=== PATIENT | male | born 1955 | race Caucasian/White ===

== ENCOUNTER → 2017-06-10 12:41 | Outpatient (CLI) | payer BC, SELFPAY | PROVIDERS: PCP Family Medicine; Visit Provider Family Medicine | DX: R06.00 Dyspnea, unspecified (principal) | CPT/HCPCS: 94060; 94640 ==

== ENCOUNTER 2017-07-18 12:22 | Observation (INO) | payer BC, SELFPAY ==
[2017-07-18] VITALS (10 sets, daily range): BP systolic 98–162; BP diastolic 55–90; PULSE 44–60; RESP 18–20; TEMP 36.4–37; O2SAT 95–100; BMI 33.0; BMI 31.7
--- NOTE | 2017-07-18 12:33 | XR_ITS ---
XR chest portable HISTORY: Chest pain ITS.REASON: cp ORDERING PHYSICIAN: Nick Brian MD PATIENT AGE: 62 years COMPARISON: None available FINDINGS: The cardiomediastinal silhouette and pulmonary vascularity are within normal limits. There are increased markings in the right lower lobe consistent with atelectasis or infiltrate. No acute bony anomalies. IMPRESSION: Right lower lobe atelectasis or infiltrate
--- NOTE | 2017-07-18 12:34 | HMH.EDGENADL ---
ED Disposition Clinical Impression: Chest pain Qualifiers: Chest pain type: unspecified Qualified Code(s): R07.9 - Chest pain, unspecified Disposition: Admitted As Inpatient Condition on Discharge: Good Referrals: Kvng Mae MD [Primary Care Provider] - - Critical Care Critical Care Time: No Attestation: On , the high probability of a clinically significant, sudden or life threatening deterioration of the following system(s) required my full and direct attention, intervention and personal management. The time I documented below is in addition to time spent performing reported procedures but includes the following listed in this critical care notation. Medical Decision Making - Medical Records Medical records reviewed: Yes: I reviewed the patient's medical records. MR Comment: 1304 [facility] that patient is here, labs pending. they do plan on doing angiogram, plan admission sp workup. 1504 [address] vilchis accepts in admission Vital Signs: 07/18/17 12:23 07/18/17 13:23 07/18/17 13:56 Temperature 97.6 F Temperature Source Oral Pulse Rate [Right Radial] 47 L 46 L 48 L Respiratory Rate 20 Blood Pressure [Right Arm] 137/62 119/61 124/65 Blood Pressure Mean [Right Arm] 87 80 84 Blood Pressure Source [Right Arm] Automatic Cuff Automatic Cuff Automatic Cuff Blood Pressure Position [Right Arm] Sitting Sitting 02 Sat by Pulse Oximetry 96 95 95 Oxygen Delivery Method Room Air 07/18/17 14:30 Temperature Temperature Source Pulse Rate [Right Radial] 45 L Respiratory Rate Blood Pressure [Right Arm] 118/62 Blood Pressure Mean [Right Arm] 80 Blood Pressure Source [Right Arm] Automatic Cuff Blood Pressure Position [Right Arm] 02 Sat by Pulse Oximetry 97 Oxygen Delivery Method - Lab Data Lab Results 07/18/17 12:30: WBC 5.8, RBC 5.09, Hgb 15.6, Hct 45.4, MCV 89.3, MCH 30.7, MCHC 34.4, RDW 13.5, Plt Count 168, MPV 8.5, Neut % (Auto) 56.2, Lymph % (Auto) 33.0, [place] % (Auto) 7.3, Eos % (Auto) 3.1, Baso % (Auto) 0.5, Neut # (Auto) 3.3, Lymph # (Auto) 1.9, [place] # (Auto) 0.4, Eos # (Auto) 0.2, Baso # (Auto) 0.0 07/18/17 12:30: Sodium 137, Potassium 4.0, Chloride 104, Carbon Dioxide 28, Anion Gap 9.0, BUN 13, Creatinine 0.96, Estimated Creat Clear 114, Estimated GFR 80, Est GFR ( Amer) 96, Glucose 97, Calcium 8.5, Total Bilirubin 0.6, AST 16, ALT 40, Alkaline Phosphatase 83, Troponin I < 0.02, Total Protein 6.9, Albumin 3.8, Globulin 3.1, Albumin/Globulin Ratio 1.2, Lipase 93 07/18/17 12:30: B-Natriuretic Peptide 35 Result diagrams: 07/18/17 12:30 07/18/17 12:30 Orders (Tests/Meds): ED MEDICATIONS Generic Name Dose Route Start Last Admin Trade Name Freq PRN Reason Stop Dose Admin Enoxaparin Sodium 100 mg 07/18/17 14:27 07/18/17 14:41 Lovenox 100mg/Ml Syringe SQ 07/18/17 14:28 100 mg ONCE ONE Administration Fentanyl Citrate 50 mcg 07/18/17 14:27 Fentanyl 100mcg/2ml Vial IV 07/19/17 14:27 Q3MINP PRN Moderate to Severe Pain Fentanyl Citrate 25 mcg 07/18/17 14:27 Fentanyl 100mcg/2ml Vial IV 07/19/17 14:27 Q3MINP PRN Moderate to Severe Pain Flumazenil 0.2 mg 07/18/17 14:27 Romazicon 0.1mg/Ml 5ml Vial IV 07/18/17 23:00 NEEDED PRN Sedation Midazolam HCl 1 mg 07/18/17 14:27 Midazolam 2mg/2ml Vial IV 07/19/17 14:27 Q3MINP PRN Sedation Midazolam HCl 1 mg 07/18/17 14:27 Midazolam 1mg/Ml 5ml Vial IV 07/19/17 14:27 Q3MINP PRN Sedation Naloxone HCl 0.4 mg 07/18/17 14:27 Narcan 0.4mg/Ml Vial IV 07/19/17 14:27 Q5MINP PRN Decreased respirations Discontinued Medications Generic Name Dose Route Start Last Admin Trade Name Freq PRN Reason Stop Dose Admin Aspirin 243 mg 07/18/17 12:34 07/18/17 12:35 Aspirin 81mg Chewable Tablet PO 07/18/17 12:35 243 mg ONCE ONE Administration - ECG Data Tracing #1 ER EKG read by myself s
--- NOTE | 2017-07-18 12:38 | ED_ITS ---
ED Disposition Clinical Impression: Chest pain Qualifiers: Chest pain type: unspecified Qualified Code(s): R07.9 - Chest pain, unspecified Disposition: Admitted As Inpatient Condition on Discharge: Good Referrals: Kvng Mae MD [Primary Care Provider] - - Critical Care Critical Care Time: No Attestation: On , the high probability of a clinically significant, sudden or life threatening deterioration of the following system(s) required my full and direct attention, intervention and personal management. The time I documented below is in addition to time spent performing reported procedures but includes the following listed in this critical care notation. Medical Decision Making - Medical Records Medical records reviewed: Yes: I reviewed the patient's medical records. MR Comment: 1304 dw Cardiology that patient is here, labs pending. they do plan on doing angiogram, plan admission sp workup. 1504 [address] [facility] accepts in admission Vital Signs: 07/18/17 12:23 07/18/17 13:23 07/18/17 13:56 Temperature 97.6 F Temperature Source Oral Pulse Rate [Right Radial] 47 L 46 L 48 L Respiratory Rate 20 Blood Pressure [Right Arm] 137/62 119/61 124/65 Blood Pressure Mean [Right Arm] 87 80 84 Blood Pressure Source [Right Arm] Automatic Cuff Automatic Cuff Automatic Cuff Blood Pressure Position [Right Arm] Sitting Sitting 02 Sat by Pulse Oximetry 96 95 95 Oxygen Delivery Method Room Air 07/18/17 14:30 Temperature Temperature Source Pulse Rate [Right Radial] 45 L Respiratory Rate Blood Pressure [Right Arm] 118/62 Blood Pressure Mean [Right Arm] 80 Blood Pressure Source [Right Arm] Automatic Cuff Blood Pressure Position [Right Arm] 02 Sat by Pulse Oximetry 97 Oxygen Delivery Method - Lab Data Lab Results 07/18/17 12:30: WBC 5.8, RBC 5.09, Hgb 15.6, Hct 45.4, MCV 89.3, MCH 30.7, MCHC 34.4, RDW 13.5, Plt Count 168, MPV 8.5, Neut % (Auto) 56.2, Lymph % (Auto) 33.0 , [place] % (Auto) 7.3, Eos % (Auto) 3.1, Baso % (Auto) 0.5, Neut # (Auto) 3.3, Lymph # (Auto) 1.9, [place] # (Auto) 0.4, Eos # (Auto) 0.2, Baso # (Auto) 0.0 07/18/17 12:30: Sodium 137, Potassium 4.0, Chloride 104, Carbon Dioxide 28, Anion Gap 9.0, BUN 13, Creatinine 0.96, Estimated Creat Clear 114, Estimated GFR 80, Est GFR ( Amer) 96, Glucose 97, Calcium 8.5, Total Bilirubin 0.6 , AST 16, ALT 40, Alkaline Phosphatase 83, Troponin I < 0.02, Total Protein 6.9 , Albumin 3.8, Globulin 3.1, Albumin/Globulin Ratio 1.2, Lipase 93 07/18/17 12:30: B-Natriuretic Peptide 35 Result diagrams: 07/18/17 12:30 07/18/17 12:30 Orders (Tests/Meds): ED MEDICATIONS Generic Name Dose Route Start Last Admin Trade Name Freq PRN Reason Stop Dose Admin Enoxaparin Sodium 100 mg 07/18/17 14:27 07/18/17 14:41 Lovenox 100mg/Ml Syringe SQ 07/18/17 14:28 100 mg ONCE ONE Administration Fentanyl Citrate 50 mcg 07/18/17 14:27 Fentanyl 100mcg/2ml Vial IV 07/19/17 14:27 Q3MINP PRN Moderate to Severe Pain Fentanyl Citrate 25 mcg 07/18/17 14:27 Fentanyl 100mcg/2ml Vial IV 07/19/17 14:27 Q3MINP PRN Moderate to Severe Pain Flumazenil 0.2 mg 07/18/17 14:27 Romazicon 0.1mg/Ml 5ml Vial IV 07/18/17 23:00 NEEDED PRN Sedation
[2017-07-18 12:48] LABS: Basophils % 0.5 % (0.1-2.0); Eosinophils # 0.2 K/mm3 (0.0-0.4); Eosinophils % 3.1 % (0.1-12.0); Hematocrit 45.4 % (42.0-52.0); Hemoglobin 15.6 g/dL (14.1-18.0); Lymphocytes # 1.9 K/mm3 (0.7-4.5); Mean Corpuscular HGB Conc 34.4 g/dL (31.8-35.4); Mean Corpuscular Hemoglobin 30.7 pg (27.0-31.2); Mean Corpuscular Volume 89.3 fl (80-94); Mean Platelet Volume 8.5 fl (7.4-10.4); Monocytes # 0.4 K/mm3 (0.1-1.0); Monocytes % 7.3 % (1.7-9.3); Neutrophils # 3.3 K/mm3 (1.8-7.8); Neutrophils % 56.2 % (37.0-80.0); Platelet Count 168 K/mm3 (142-424); Red Blood Count 5.09 M/mm3 (4.60-6.20); Red Cell Distribution Width 13.5 % (11.5-17.5); White Blood Count 5.8 K/mm3 (4.8-10.8)
[2017-07-18 13:07] LABS: Alanine Aminotransferase 40 U/L (12-78); Albumin Level 3.8 gm/dL (3.4-5.0); Albumin/Globulin Ratio 1.2 (1.1-1.8); Alkaline Phosphatase 83 U/L (46-116); Aspartate Amino Transferase 16 U/L (15-37); Bilirubin,Total 0.6 mg/dL (0.2-1.0); Blood Urea Nitrogen 13 mg/dL (7-18); Calcium 8.5 mg/dL (8.5-10.1); Carbon Dioxide 28 mmol/L (21.0-32.0); Chloride 104 mmol/L (98-107); Creatinine Clearance Estimated 114 mL/min (0-300); Creatinine,Serum 0.96 mg/dL (0.70-1.30); Estimated Glomerular Filt Rate 80 ml/min (>60); GFR (African American) 96 ML/MIN (>60); Globulin 3.1 gm/dl (1.3-3.2); Glucose 97 mg/dL (74-106); Lipase 93 u/L (73-393); Sodium 137 mmol/L (136-145); Total Protein,Serum 6.9 gm/dL (6.4-8.2); Troponin I < 0.02 ng/ml (0.00-0.06)
--- NOTE | 2017-07-18 14:19 | HMH.CNCARD ---
History of Present Illness Consult date: 07/18/17 Consult reason: chest pain Chief complaint: chest pain, SOA History of present illness: 62-year-old white male with history of coronary artery disease status post coronary stenting several years ago presented to the emergency department for worsening chest pain and shortness of breath. Patient has a two-month history of increasing episodes of chest discomfort that resolves with sublingual nitroglycerin. He relates exertional shortness of breath that resolves with rest. Patient was seen in the office earlier this month and started on both beta-shayy and Norvasc for suspected unstable angina with plans to proceed with cardiac catheterization. Patient called the office early this morning relating that his chest pain and shortness of breath had returned last evening intermittently and were worse. He was directed to the emergency department for further evaluation. Patient did take sublingual nitroglycerin prior to the ER with symptoms resolving by the time he got to the ER. He was given aspirin to total 324 mg daily. EKG in the ER shows sinus bradycardia without acute change. Patient currently is asymptomatic. Initial enzymes pending at this time. [facility] History Medical History: Reports:: Coronary Artery Disease, Myocardial Infarction Denies:: Diabetes Mellitus Type 2 Laterality Cases: Left: Partial Knee Replacement Other Surgeries: Yes: Coronary Stent, Other ([facility]) - *Social History Smoking Status: Former smoker Alcohol Intake: never Alcohol Intake Frequency:: other - Psychiatric History Expresses thoughts of harming self/others: None Suicide Plan Description: No Plan *Family Hx:: Coronary Artery Disease Meds Home Medications Medication Instructions Recorded Confirmed Type aspirin 81 mg tablet,delayed 81 mg PO ONCE 07/12/17 History release escitalopram 20 mg tablet 20 mg PO ONCE 07/12/17 History naproxen 500 mg tablet 500 mg PO BID tab 07/12/17 History nitroglycerin 0.4 mg sublingual 0.4 mg SUBLINGUAL Q5M PRN 07/12/17 History tablet Allergies Allergy/AdvReac Type Severity Reaction Status Date / Time No Known Allergies Allergy Verified 07/18/17 12:31 Review of Systems - *Cardiovascular Reports chest pain, Reports shortness of breath with activity - *Respiratory Reports shortness of breath with activity Exam Vital signs and Labs for Last 24 Hours: Temp Pulse Resp BP Pulse Ox 97.6 F 48 L 20 124/65 95 07/18/17 12:23 07/18/17 13:56 07/18/17 12:23 07/18/17 13:56 07/18/17 13:56 Laboratory Results - last 24 hr 07/18/17 12:30: WBC 5.8, RBC 5.09, Hgb 15.6, Hct 45.4, MCV 89.3, MCH 30.7, MCHC 34.4, RDW 13.5, Plt Count 168, MPV 8.5, Neut % (Auto) 56.2, Lymph % (Auto) 33.0, [place] % (Auto) 7.3, Eos % (Auto) 3.1, Baso % (Auto) 0.5, Neut # (Auto) 3.3, Lymph # (Auto) 1.9, [place] # (Auto) 0.4, Eos # (Auto) 0.2, Baso # (Auto) 0.0 07/18/17 12:30: Sodium 137, Potassium 4.0, Chloride 104, Carbon Dioxide 28, Anion Gap 9.0, BUN 13, Creatinine 0.96, Estimated Creat Clear 114, Estimated GFR 80, Est GFR ( Amer) 96, Glucose 97, Calcium 8.5, Total Bilirubin 0.6, AST 16, ALT 40, Alkaline Phosphatase 83, Troponin I < 0.02, Total Protein 6.9, Albumin 3.8, Globulin 3.1, Albumin/Globulin Ratio 1.2, Lipase 93 07/18/17 12:30: B-Natriuretic Peptide 35 I & O for Last 24 hours: Intake & Output 07/16/17 07/17/17 07/18/17 07/19/17 11:59 11:59 11:59 11:59 Weight 230 lb - *Routine Neck Exam Absent: JVD, carotid bruit - *Routine Respiratory Exam Present: CTA bilaterally - *Routine Cardiovascular Exam Present: RRR. Absent: murmur, gallop, rubs - *Routine Extremities Exam Absent: edema - *Routine Neurological Exam Present: alert, oriented X3, moving all extremities Assessment and Plan (1) Chest pain Current visit: Yes Status: Acute Qualifiers: Chest pain type: unspecified Qualified Code(s): R07.9 - Chest pain, unspecif
[2017-07-18 15:56] LABS: Troponin I < 0.02 ng/ml (0.00-0.06)
--- NOTE | 2017-07-18 16:59 | PC.NURSE ---
Report given to EDILBERTO Carter, Second floor.
[2017-07-18 18:40] LABS: Troponin I < 0.02 ng/ml (0.00-0.06)
[2017-07-18 22:02] LABS: Troponin I < 0.02 ng/ml (0.00-0.06)
[2017-07-19] VITALS (24 sets, daily range): BP systolic 96–145; BP diastolic 49–93; PULSE 44–76; RESP 14–21; TEMP 36.6–36.8; O2SAT 94–99
--- NOTE | 2017-07-19 | IR_ITS ---
CARDIAC CATHETERIZATION DATE OF CATHETERIZATION:07/19/2017 9:35 AM PROCEDURES: 1. Left heart catheterization 2. Left ventriculogram 3. Selective coronary angiogram 4. Drug-eluting stent deployment to the proximal mid dominant right coronary artery 5. Drug-eluting stent deployment to the proximal left anterior sitting artery INDICATION FOR TEST: 1. Coronary artery disease 2. Unstable angina Informed consent was obtained prior to the procedure. COMPLICATIONS: None ESTIMATED BLOOD LOSS: Less than 10 ml. TECHNIQUE: One percent lidocaine used to anesthetize the right anterior aspect of the wrist. The right radial artery was accessed via the Seldinger technique. A 6 Bengali sheath was placed in the right radial artery. 2.5 mg of verapamil, 800 mcg of nitroglycerin and 5000 U Heparin were given through the arterial sheath. The trap catheter was also used to perform left heart catheterization left ventriculogram and selective coronary angiogram. At the end of the diagnostic angiogram and additional 6000 units of heparin was administered intravenously along with Brilinta 180 mg and aspirin 325 mg. The ACT measured 309 seconds. An a.l. 0.75 guide catheter was used intubate the right coronary artery and a BMW wire was placed distally. A 3 mm x 38 mm resolute Zbigniew stent was deployed at 24 barbra reducing the severe stenosis to 0%. YAZMIN-3 flow was present before and after the procedure. Following this the guide catheter was used intubate the left main artery and the wire was placed into the distal LAD. A 3 mm x 22 mm resolute Zbigniew stent was deployed at 20 barbra reducing the severe stenosis to 0%. YAZMIN-3 flow was present before and after the procedure. At the end of the procedure the closing ACT was 273 seconds. The sheath was removed good hemostasis was achieved using TR banding patient was transferred to the postop holding area in stable condition ANGIOGRAPHIC RESULTS: 1. The left main artery has an ostial and distal 10% stenosis 2. The left anterior descending artery has proximal eccentric 80% complex stenosis 3. The circumflex artery is a nondominant yet still large vessel with a proximal 40% stenosis followed by a widely patent stent free of in-stent restenosis 4. The right coronary artery is a large dominant vessel and has proximal 40% stenoses with a mid vessel 80-90% stenosis and distal 30% stenoses 5. The BRANDT ventriculogram reveals normal 65% 6. The left ventricular end-diastolic pressure elevated at 20 mmHg IMPRESSION: 1. Severe to critical 2 vessel coronary artery disease involving the proximal LAD and mid dominant right coronary artery 2. Successful stenting of the proximal LAD severe disease reduced to 0% with 1 drug-eluting stent 3. Successful stenting the proximal to mid dominant right coronary artery severe disease reduced to 0% with 1 drug-eluting stent 4. Widely patent stent in the nondominant mid circumflex artery 5. Normal ejection fraction 6. Mildly elevated LVEDP PLAN: 1. Brilinta and aspirin 2. LDL less than 55 3. Avoidance of tobacco products 4. Cardiac rehabilitation 5. Low-dose diuretics might benefit patient by decreasing LVEDP
--- NOTE | 2017-07-19 03:48 | PC.NURSE ---
PATIENT HAS BEEN AWAKE FOR MOST OF THIS SHIFT. HE HAS HAD NO C/O CHEST PAIN OR ANY OTHER C/O PAIN. NO SOA OR DISTRESS. PATIENT HAS BEEN NPO SINCE MIDNIGHT IN PREPARATION FOR HEART CATH IN AM. PATIENT IS CURRENTLY IN BED AWAKE. NO OTHER PROBLEMS NOTED AT THIS TIME. VSS. WILL CONTINUE TO MONITOR. SAFETY MEASURES IN PLACE, CALL LIGHT IN REACH.
--- NOTE | 2017-07-19 07:32 | P.CONPHA_ITS ---
[facility] VTE Monitoring - Patient Demographics Admission date: 07/18/17 Report Date: 07/19/17 Time: 07:32 Allergies/Adverse Reactions: Patient Allergies No Known Allergies Allergy (Verified 07/18/17 12:31) Height: 1.78 m Weight: 100.301 kg Patient Problems: Current Active Problems (This Medical Record has been edited. Action required.) Chest pain (Acute) - VTE Risk Labs: VTE Related Lab Results Hgb 15.6 g/dL (14.1-18.0) 07/18/17 12:30 Hct 45.4 % (42.0-52.0) 07/18/17 12:30 Plt Count 168 K/mm3 (142-424) 07/18/17 12:30 BUN 13 mg/dL (7-18) 07/18/17 12:30 Creatinine 0.96 mg/dL (0.70-1.30) 07/18/17 12:30 Estimated Creat Clear 114 mL/min (0-300) 07/18/17 12:30 Was VTE Risk Assessment Performed: Yes VTE Score: 1 VTE Risk Level: Very Low Risk Clinical Trial Participant: No - Prophylaxis VTE Prophylaxis Ordered?: Yes Types of VTE Prophylaxis: TEDS Knee High
--- NOTE | 2017-07-19 08:32 | HMH.HP ---
*Admission Date: 07/18/17 <TinajeroNandaAnitha 07/19/17 08:57> *Chief complaint: chest pain <Anitha Tinajero 07/19/17 08:57> *History of present illness: Mr Fuentes is a 62-year-old white male with history of coronary artery disease status post coronary stenting several years ago who presented to the emergency department for worsening chest pain and shortness of breath. Patient noted a two-month history of increasing episodes of chest discomfort that resolved with sublingual nitroglycerin. He related exertional shortness of breath that resolved with rest. Patient was seen in the cardiac office earlier this month and started on both beta-shayy and Norvasc for suspected unstable angina with plans to proceed with cardiac catheterization. Patient called the cardiac office early the morning of admission relating that his chest pain and shortness of breath had returned intermittently the previous evening and were worse. He had 2 episodes which were relieved by NTG. He was directed to the emergency department for further evaluation. With evaluation in the ER he was given aspirin to total 324 mg daily. EKG in the ER showed sinus bradycardia without acute change. Patient was asymptomatic. He was admitted for cardiac evaluation. This AM patient has had no further CP. He did not sleep much due to worrying about the cardiac cath. Has been seen by cardiology and has been n.p.o. for cardiac catheterization this a.m. <Anitha Tinajero 07/19/17 08:57> [facility] History Medical History: Reports:: Atherosclerotic Heart Disease, Coronary Artery Disease, Myocardial Infarction Denies:: Arrhythmia, Asthma, Diabetes Mellitus Type 2, Gastroesophageal Reflux Disease(GERD) <Anitha Tinajero 07/19/17 08:57> Laterality Cases: Left: Partial Knee Replacement <Anitha Tinajero 07/19/17 08:57> Other Surgeries: Yes: Coronary Stent, Other ([facility]) <Anitha Tinajero 07/19/17 08:57> Comment: 2007 sinus surgery <Anitha Tinajero 07/19/17 08:57> - *Social History Educational Level: Completed High School <Anitha Tinajero 07/19/17 08:57> Smoking Status: Former smoker <Anitha Tinajero 07/19/17 08:57> Alcohol Intake: never <Anitha Tinajero 07/19/17 08:57> Alcohol Intake Frequency:: other <Anitha Tinajero 07/19/17 08:57> Occupational Status: employed, other ([employer]) <Anitha Tinajero 07/19/17 08:57> - Psychiatric History Expresses thoughts of harming self/others: None <Anitha Tinajero 07/19/17 08:57> Suicide Plan Description: No Plan <Anitha Tinajero 07/19/17 08:57> *Family Hx:: Coronary Artery Disease, Diabetes, Heart Attack, Stroke <TinajeroAnitha 07/19/17 08:57> Review of Systems - Constitutional Denies body ache(s), Denies fever(s), Denies headache(s) <TinajeroAnitha 07/19/17 08:57> - ENT Denies dizziness, Denies sore throat <TinajeroAnitha 07/19/17 08:57> - *Cardiovascular Reports chest pain, Reports chest pain at rest, Reports shortness of breath, Denies irregular heart rhythm, Denies leg swelling, Denies rapid, pounding, or irregular heartbeat <TinajeroAnitha 07/19/17 08:57> Comments: CP with tingling down his left arm <Nanda Tinajerohy 07/19/17 08:57> - *Respiratory Reports shortness of breath, Denies chest congestion, Denies cough <[facility] 07/19/17 08:57> - *Gastrointestinal Denies change in stools, Denies constipation, Denies black, tarry stools, Denies nausea, Denies vomiting <TanviAnitha 07/19/17 08:57> - *Genitourinary Denies difficulty urinating <TinajeroAnitha 07/19/17 08:57> - *Musculoskeletal Denies body aches <TinajeroAnitha 07/19/17 08:57> - *Neurologic Denies dizziness, Denies headache(s) <TinajeroAnitha 07/19/17 08:57> Meds Home Medications Medication Instructions Recorded Confirmed Type aspirin 81 mg tablet,delayed 81 mg PO DAILY 07/12/17 07/19/17 History release escitalopram 20 mg tablet 20 mg PO DAILY 07/12/17 07/19/17 History naproxen 500 mg tablet 500 mg PO DAILY tab 07/12/1707/19
--- NOTE | 2017-07-19 08:41 | P.HP_ITS ---
*Admission Date: 07/18/17 <TinajeroNandaAnitha 07/19/17 08:57> *Chief complaint: chest pain <Anitha Tinajero 07/19/17 08:57> *History of present illness: Mr Fuentes is a 62-year-old white male with history of coronary artery disease status post coronary stenting several years ago who presented to the emergency department for worsening chest pain and shortness of breath. Patient noted a two-month history of increasing episodes of chest discomfort that resolved with sublingual nitroglycerin. He related exertional shortness of breath that resolved with rest. Patient was seen in the cardiac office earlier this month and started on both beta-shayy and Norvasc for suspected unstable angina with plans to proceed with cardiac catheterization. Patient called the cardiac office early the morning of admission relating that his chest pain and shortness of breath had returned intermittently the previous evening and were worse. He had 2 episodes which were relieved by NTG. He was directed to the emergency department for further evaluation. With evaluation in the ER he was given aspirin to total 324 mg daily. EKG in the ER showed sinus bradycardia without acute change. Patient was asymptomatic. He was admitted for cardiac evaluation. This AM patient has had no further CP. He did not sleep much due to worrying about the cardiac cath. Has been seen by cardiology and has been n.p.o. for cardiac catheterization this a.m. <Anitha Tinajero 07/19/17 08:57> [facility] History Medical History: Reports:: Atherosclerotic Heart Disease, Coronary Artery Disease, Myocardial Infarction Denies:: Arrhythmia, Asthma, Diabetes Mellitus Type 2, Gastroesophageal Reflux Disease(GERD) <Anitha Tinajero 07/19/17 08:57> Laterality Cases: Left: Partial Knee Replacement <Anitha Tinajero 07/19/17 08: 57> Other Surgeries: Yes: Coronary Stent, Other ([facility]) <Anitha Tinajero 07/19/17 08 :57> Comment: 2007 sinus surgery <Anitha Tinajero 07/19/17 08:57> - *Social History Educational Level: Completed High School <Anitha Tinajero 07/19/17 08:57> Smoking Status: Former smoker <Anitha Tinajero 07/19/17 08:57> Alcohol Intake: never <Anitha Tinajero 07/19/17 08:57> Alcohol Intake Frequency:: other <Anitha Tinajero 07/19/17 08:57> Occupational Status: employed, other ([employer]) <Anitha Tinajero 07/19/17 08:57> - Psychiatric History Expresses thoughts of harming self/others: None <TanviAnitha 07/19/17 08: 57> Suicide Plan Description: No Plan <Anitha Tinajero 07/19/17 08:57> *Family Hx:: Coronary Artery Disease, Diabetes, Heart Attack, Stroke <Tinajero Anitha 07/19/17 08:57> Review of Systems - Constitutional Denies body ache(s), Denies fever(s), Denies headache(s) <TinajeroAnitha 08:57> - ENT Denies dizziness, Denies sore throat <TinajeroAnitha 07/19/17 08:57> - *Cardiovascular Reports chest pain, Reports chest pain at rest, Reports shortness of breath, Denies irregular heart rhythm, Denies leg swelling, Denies rapid, pounding, or irregular heartbeat <TinajeroAnitha 07/19/17 08:57> Comments: CP with tingling down his left arm <TinajeroAnitha 07/19/17 08:57> - *Respiratory Reports shortness of breath, Denies chest congestion, Denies cough <Tinajero Anitha 07/19/17 08:57> - *Gastrointestinal Denies change in stools, Denies constipation, Denies black, tarry stools, Denies nausea, Denies vomiting <TanviAnitha 07/19/17 08:57> - *Genitourinary Denies difficulty urinating <TinajeroAnitha 07/19/17 08:57> - *Musculoskeletal Denies body aches <TinajeroAnitha 07/19/17 08:57> - *Neurologic Denies dizziness, Denies headache(
--- NOTE | 2017-07-19 09:10 | PC.NURSE ---
pt off floor for procedure
--- NOTE | 2017-07-19 10:24 | P.CONCA_ITS ---
History of Present Illness Consult date: 07/18/17 Consult reason: chest pain Chief complaint: chest pain, SOA History of present illness: 62-year-old white male with history of coronary artery disease status post coronary stenting several years ago presented to the emergency department for worsening chest pain and shortness of breath. Patient has a two-month history of increasing episodes of chest discomfort that resolves with sublingual nitroglycerin. He relates exertional shortness of breath that resolves with rest. Patient was seen in the office earlier this month and started on both beta-shayy and Norvasc for suspected unstable angina with plans to proceed with cardiac catheterization. Patient called the office early this morning relating that his chest pain and shortness of breath had returned last evening intermittently and were worse. He was directed to the emergency department for further evaluation. Patient did take sublingual nitroglycerin prior to the ER with symptoms resolving by the time he got to the ER. He was given aspirin to total 324 mg daily. EKG in the ER shows sinus bradycardia without acute change. Patient currently is asymptomatic. Initial enzymes pending at this time. [facility] History Medical History: Reports:: Coronary Artery Disease, Myocardial Infarction Denies:: Diabetes Mellitus Type 2 Laterality Cases: Left: Partial Knee Replacement Other Surgeries: Yes: Coronary Stent, Other ([facility]) - *Social History Smoking Status: Former smoker Alcohol Intake: never Alcohol Intake Frequency:: other - Psychiatric History Expresses thoughts of harming self/others: None Suicide Plan Description: No Plan *Family Hx:: Coronary Artery Disease Meds Home Medications Medication Instructions Recorded Confirmed Type aspirin 81 mg tablet,delayed 81 mg PO ONCE 07/12/17 History release escitalopram 20 mg tablet 20 mg PO ONCE 07/12/17 History naproxen 500 mg tablet 500 mg PO BID tab 07/12/17 History nitroglycerin 0.4 mg sublingual 0.4 mg SUBLINGUAL Q5M PRN 07/12/17 History tablet Allergies Allergy/AdvReac Type Severity Reaction Status Date / Time No Known Allergies Allergy Verified 07/18/17 12:31 Review of Systems - *Cardiovascular Reports chest pain, Reports shortness of breath with activity - *Respiratory Reports shortness of breath with activity Exam Vital signs and Labs for Last 24 Hours: Temp Pulse Resp BP Pulse Ox 97.6 F 48 L 20 124/65 95 07/18/17 12:23 07/18/17 13:56 07/18/17 12:23 07/18/17 13:56 07/18/17 13:56 Laboratory Results - last 24 hr 07/18/17 12:30: WBC 5.8, RBC 5.09, Hgb 15.6, Hct 45.4, MCV 89.3, MCH 30.7, MCHC 34.4, RDW 13.5, Plt Count 168, MPV 8.5, Neut % (Auto) 56.2, Lymph % (Auto) 33.0 , [place] % (Auto) 7.3, Eos % (Auto) 3.1, Baso % (Auto) 0.5, Neut # (Auto) 3.3, Lymph # (Auto) 1.9, [place] # (Auto) 0.4, Eos # (Auto) 0.2, Baso # (Auto) 0.0 07/18/17 12:30: Sodium 137, Potassium 4.0, Chloride 104, Carbon Dioxide 28, Anion Gap 9.0, BUN 13, Creatinine 0.96, Estimated Creat Clear 114, Estimated GFR 80, Est GFR ( Amer) 96, Glucose 97, Calcium 8.5, Total Bilirubin 0.6 , AST 16, ALT 40, Alkaline Phosphatase 83, Troponin I < 0.02, Total Protein 6.9 , Albumin 3.8, Globulin 3.1, Albumin/Globulin Ratio 1.2, Lipase 93 07/18/17 12:30: B-Natriuretic Peptide 35 I & O for Last 24 hours: Intake & Output 07/16/17 07/17/17 07/18/17 07/19/17 11:59 11:59 11:59 11:59 Weight
[2017-07-19 14:07] LABS: CATHL Activated Clotting Time 309 SEC (74-125)
[2017-07-19 14:08] LABS: CATHL Activated Clotting Time 272 SEC (74-125)
--- NOTE | 2017-07-19 19:23 | PC.NURSE ---
REPORT GIVEN TO Ann LOPEZ RN AT 192
--- NOTE | 2017-07-19 19:24 | PC.NURSE ---
LATE ENTRY: pt has rested well post cath. lung sounds remain clear, bowel sounds are active. pt is alert and oriented. nad noted.
[2017-07-20] VITALS: PULSE 50
[2017-07-20 00:03] VITALS: BP 114/65; PULSE 52; O2SAT 96
--- NOTE | 2017-07-20 01:51 | PC.NURSE ---
PT IS A&OX3. HE DENIES CHEST PAIN. DENIES SOB. HAS BEEN AMBULATING INDEPENDENTLY TO THE BATHROOM. STEADY GAIT. HE IS S/P HEART CATH WITH RIGHT RADIAL DSG. DSG IS C/D/I. NO SWELLING OR BRUISING NOTED AT THE SITE. HE HAS POSITIVE RADIAL AND PEDAL PULSES. CAPILLARY REFILL <3. HE IS NSR ON TELEMETRY WHILE AWAKE AND BRADYCARDIC WHILE ASLEEP. PULSE RANGING FROM 56-58 WHILE SLEEPING. ALL OTHER VS WITHIN NORMAL LIMITS. HE WAS EDUCATED TO NOTIFY STAFF IMMEDIATELY OF ANY PULSATING, THROBBING, BLEEDING, OR SWELLING AT SITE. HE WAS ALSO EDUCATED TO NOT BE PUSHING, PULLING, OR PUTTING WEIGHT ON RIGHT ARM. HE VERBALIZED UNDERSTANDING. SITE IS BEING MONITORED BY THIS NURSE. NO CHANGES IN SITE.
[2017-07-20 04:00] VITALS: BP 133/76; PULSE 50; PULSE 58; O2SAT 94; O2SAT 98
[2017-07-20 06:18] LABS: Blood Urea Nitrogen 17 mg/dL (7-18); Carbon Dioxide 24 mmol/L (21.0-32.0); Chloride 106 mmol/L (98-107); Creatinine Clearance Estimated 106 mL/min (0-300); Creatinine,Serum 1.09 mg/dL (0.70-1.30); Estimated Glomerular Filt Rate 69 ml/min (>60); GFR (African American) 83 ML/MIN (>60); Glucose 129 mg/dL (74-106); Sodium 140 mmol/L (136-145)
--- NOTE | 2017-07-20 07:36 | HMH.ACPN2 ---
<Anitha Tinajero - Last Filed: 07/20/17 07:36> Internal Medicine - PN: Subj *Date: 07/20/17 *Time: 07:36 Interval history: Had some difficulty with sleeping due to environment. Eating without difficulty. No further chest pain or shortness of breath. He is ready to go home. Exam Vital signs and Labs for Last 24 Hours: Temp Pulse Resp BP Pulse Ox 98.0 F 58 L 18 133/76 94 L 07/19/17 20:00 07/20/17 04:00 07/19/17 22:00 07/20/17 04:00 07/20/17 04:00 Laboratory Results - last 24 hr 07/19/17 10:17: Activated Clotting Time 309 H* 07/19/17 10:34: Activated Clotting Time 272 H* 07/20/17 05:30: Sodium 140, Potassium 4.0, Chloride 106, Carbon Dioxide 24, Anion Gap 14.0, BUN 17 D, Creatinine 1.09, Estimated Creat Clear 106, Estimated GFR 69, Est GFR ( Amer) 83, Glucose 129 H I & O for Last 24 hours: Intake & Output 07/17/17 07/18/17 07/19/17 07/20/17 11:59 11:59 11:59 11:59 Intake Total 480 / 480 290 / 290 Output Total 300 / 300 Balance 180 / 180 290 / 290 Weight 221 lb 2 oz 232 lb Radiology Reports for the Last 24 Hours: 07/19/17 Cardiac Cath IMPRESSION: 1. Severe to critical 2 vessel coronary artery disease involving the proximal LAD and mid dominant right coronary artery 2. Successful stenting of the proximal LAD severe disease reduced to 0% with 1 drug-eluting stent 3. Successful stenting the proximal to mid dominant right coronary artery severe disease reduced to 0% with 1 drug-eluting stent 4. Widely patent stent in the nondominant mid circumflex artery 5. Normal ejection fraction 6. Mildly elevated LVEDP PLAN: 1. Brilinta and aspirin 2. LDL less than 55 3. Avoidance of tobacco products 4. Cardiac rehabilitation 5. Low-dose diuretics might benefit patient by decreasing LVEDP - Constitutional no acute distress Comments: Awakened for exam - *Routine Respiratory Exam Present: CTA bilaterally (A&P) - *Routine Cardiovascular Exam Present: RRR Comments: Sinus rhythm - *Routine Abdominal Exam Present: soft, normoactive bowel sounds. Absent: tenderness, guarding - *Routine Extremities Exam Absent: edema, calf tenderness - *Routine Neurological Exam Present: alert, oriented X3 Assessment and Plan (1) Chest pain Current visit: Yes Status: Acute Qualifiers: Chest pain type: unspecified Qualified Code(s): R07.9 - Chest pain, unspecified Category: Medical Code(s): R07.9 - Chest pain, unspecified (2) Stented coronary artery Current visit: Yes Status: Acute Category: Surgical Code(s): Z95.5 - Presence of coronary angioplasty implant and graft (3) CAD (coronary artery disease) Current visit: No Status: Chronic Category: Medical Code(s): I25.10 - Atherosclerotic heart disease of [place] coronary artery without angina pectoris (4) Angina, class III Current visit: No Status: Chronic Category: Medical Code(s): I20.9 - Angina pectoris, unspecified (5) HHD (hypertensive heart disease) Current visit: No Status: Chronic Category: Medical Code(s): I11.9 - Hypertensive heart disease without heart failure (6) HLD (hyperlipidemia) Current visit: No Status: Chronic Category: Medical Code(s): E78.5 - Hyperlipidemia, unspecified - Assessment and plan all Dx Assessment and Plan for all problems:: Patient will be discharged today; cardiac meds as per cardiology <Kvng Mae - Last Filed: 07/20/17 09:33> Internal Medicine - PN: Subj *Date: 07/20/17 *Time: 09:32 Exam Vital signs and Labs for Last 24 Hours: Temp Pulse Resp BP Pulse Ox 98.0 F 56 L 22 90/47 97 07/19/17 20:00 07/20/17 08:00 07/20/17 08:00 07/20/17 08:00 07/20/17 08:00 Laboratory Results - last 24 hr 07/19/17 10:17: Activated Clotting Time 309 H* 07/19/17 10:34: Activated Clotting Time 272 H* 07/20/17 05:30: Sodium 140, Potassium 4.0, Chloride 106, Carbon Dioxide 24, Anion Gap 14.0,
--- NOTE | 2017-07-20 07:39 | P.PN_ITS ---
<Anitha Tinajero - Last Filed: 07/20/17 07:36> Internal Medicine - PN: Subj *Date: 07/20/17 *Time: 07:36 Interval history: Had some difficulty with sleeping due to environment. Eating without difficulty. No further chest pain or shortness of breath. He is ready to go home. Exam Vital signs and Labs for Last 24 Hours: Temp Pulse Resp BP Pulse Ox 98.0 F 58 L 18 133/76 94 L 07/19/17 20:00 07/20/17 04:00 07/19/17 22:00 07/20/17 04:00 07/20/17 04:00 Laboratory Results - last 24 hr 07/19/17 10:17: Activated Clotting Time 309 H* 07/19/17 10:34: Activated Clotting Time 272 H* 07/20/17 05:30: Sodium 140, Potassium 4.0, Chloride 106, Carbon Dioxide 24, Anion Gap 14.0, BUN 17 D, Creatinine 1.09, Estimated Creat Clear 106, Estimated GFR 69, Est GFR ( Amer) 83, Glucose 129 H I & O for Last 24 hours: Intake & Output 07/17/17 07/18/17 07/19/17 07/20/17 11:59 11:59 11:59 11:59 Intake Total 480 / 480 290 / 290 Output Total 300 / 300 Balance 180 / 180 290 / 290 Weight 221 lb 2 oz 232 lb Radiology Reports for the Last 24 Hours: 07/19/17 Cardiac Cath IMPRESSION: 1. Severe to critical 2 vessel coronary artery disease involving the proximal LAD and mid dominant right coronary artery 2. Successful stenting of the proximal LAD severe disease reduced to 0% with 1 drug-eluting stent 3. Successful stenting the proximal to mid dominant right coronary artery severe disease reduced to 0% with 1 drug-eluting stent 4. Widely patent stent in the nondominant mid circumflex artery 5. Normal ejection fraction 6. Mildly elevated LVEDP PLAN: 1. Brilinta and aspirin 2. LDL less than 55 3. Avoidance of tobacco products 4. Cardiac rehabilitation 5. Low-dose diuretics might benefit patient by decreasing LVEDP - Constitutional no acute distress Comments: Awakened for exam - *Routine Respiratory Exam Present: CTA bilaterally (A&P) - *Routine Cardiovascular Exam Present: RRR Comments: Sinus rhythm - *Routine Abdominal Exam Present: soft, normoactive bowel sounds. Absent: tenderness, guarding - *Routine Extremities Exam Absent: edema, calf tenderness - *Routine Neurological Exam Present: alert, oriented X3 Assessment and Plan (1) Chest pain Current visit: Yes Status: Acute Qualifiers: Chest pain type: unspecified Qualified Code(s): R07.9 - Chest pain, unspecified Category: Medical Code(s): R07.9 - Chest pain, unspecified (2) Stented coronary artery Current visit: Yes Status: Acute Category: Surgical Code(s): Z95.5 - Presence of coronary angioplasty implant and graft (3) CAD (coronary artery disease) Current visit: No Status: Chronic Category: Medical Code(s): I25.10 - Atherosclerotic heart disease of [place] coronary artery without angina pectoris (4) Angina, class III Current visit: No Status: Chronic Category: Medical Code(s): I20.9 - Angina pectoris, unspecified (5) HHD (hypertensive heart disease) Current visit: No Status: Chronic Category: Medical Code(s): I11.9 - Hypertensive heart disease without heart failure (6) HLD (hyperlipidemia) Current visit: No Status: Chronic Category: Medical Code(s): E78.5 - Hyperlipidemia, unspecified - Assessment and plan all Dx Assessment and Plan for all problems:: Patient will be discharged to
[2017-07-20 08:00] VITALS: BP 90/47; PULSE 56; PULSE 60; RESP 22; O2SAT 96; O2SAT 97
--- NOTE | 2017-07-20 09:02 | HMH.PNCARD ---
Subjective Date: 07/20/17 Time: 09:02 Principal diagnosis: CAD Interval history: 62 yo WM in bed in NAD. Feeling better and ready to go home. Review of Systems - *Cardiovascular Denies chest pain - *Respiratory Denies shortness of breath - *Neurologic Denies dizziness, Denies headache(s) Meds Home Medications Medication Instructions Recorded Confirmed Type aspirin 81 mg tablet,delayed 81 mg PO DAILY 07/12/17 07/19/17 History release nitroglycerin 0.4 mg sublingual 0.4 mg SUBLINGUAL Q5M PRN 07/12/17 07/19/17 History tablet Allergies Allergy/AdvReac Type Severity Reaction Status Date / Time No Known Allergies Allergy Verified 07/18/17 12:31 Exam Vital signs and Labs for Last 24 Hours: Temp Pulse Resp BP Pulse Ox 98.0 F 56 L 22 90/47 97 07/19/17 20:00 07/20/17 08:00 07/20/17 08:00 07/20/17 08:00 07/20/17 08:00 Laboratory Results - last 24 hr 07/19/17 10:17: Activated Clotting Time 309 H* 07/19/17 10:34: Activated Clotting Time 272 H* 07/20/17 05:30: Sodium 140, Potassium 4.0, Chloride 106, Carbon Dioxide 24, Anion Gap 14.0, BUN 17 D, Creatinine 1.09, Estimated Creat Clear 106, Estimated GFR 69, Est GFR ( Amer) 83, Glucose 129 H I & O for Last 24 hours: Intake & Output 07/17/17 07/18/17 07/19/17 07/20/17 11:59 11:59 11:59 11:59 Intake Total 480 / 480 770 / 770 Output Total 300 / 300 Balance 180 / 180 770 / 770 Weight 221 lb 2 oz 232 lb - *Routine Respiratory Exam Present: CTA bilaterally - *Routine Cardiovascular Exam Present: RRR Plan - Patient/Caregiver Discharge Instructions Activity: Agree with discharge home on DAPT and statin. Would discontinue norvasc and bisoprolol for now due to low BP and bradycardia. Follow up in one week. - Follow Up Plan Follow up with: Oscar Tirado MD [Staff Physician] - 1 week
--- NOTE | 2017-07-20 16:25 | HMH.DCSUM ---
General - General Admission date: 07/18/17 <Jen Duong - 07/20/17 16:31> Discharge date: 07/20/17 <Jen Duong - 07/20/17 16:31> HPI HPI: Mr Fuentes is a 62-year-old white male with history of coronary artery disease status post coronary stenting several years ago who presented to the emergency department for worsening chest pain and shortness of breath. Patient noted a two-month history of increasing episodes of chest discomfort that resolved with sublingual nitroglycerin. He related exertional shortness of breath that resolved with rest. Patient was seen in the cardiac office earlier this month and started on both beta-shayy and Norvasc for suspected unstable angina with plans to proceed with cardiac catheterization. Patient called the cardiac office early the morning of admission relating that his chest pain and shortness of breath had returned intermittently the previous evening and were worse. He had 2 episodes which were relieved by NTG. He was directed to the emergency department for further evaluation. With evaluation in the ER he was given aspirin to total 324 mg daily. EKG in the ER showed sinus bradycardia without acute change. Patient was asymptomatic. He was admitted for cardiac evaluation. <Jen Duong - 07/20/17 16:31> Hospital Course Hospital Course: The patient was seen by cardiology who performed a heart cath. He had severe to critical 2 vessel coronary artery disease involving the proximal LAD and mid dominant right coronary artery. He had successful stenting of the proximal LAD and the proximal to mid dominant right coronary artery. He had a normal EF. He was started on Brilinta and ASA and was advised to avoid tobacco, keep his LDL less than 55, and start cardiac rehab. His norvasc and bisoprolol were discontinued d/t low BP and bradycardia. He did well post stenting and was stable to be discharged home with a cardiology f/u in 1 week. <Jen Duong - 07/20/17 16:31> Objective Vital signs: Temp Pulse Resp BP Pulse Ox 98.0 F 56 L 22 90/47 96 07/19/17 20:00 07/20/17 08:00 07/20/17 08:00 07/20/17 08:00 07/20/17 08:00 <Kvng Mae - 09/01/17 21:23> Temp Pulse Resp BP Pulse Ox 98.0 F 56 L 22 90/47 96 07/19/17 20:00 07/20/17 08:00 07/20/17 08:00 07/20/17 08:00 07/20/17 08:00 <Jen Duong - 07/20/17 16:31> Narrative: - Constitutional no acute distress - *Routine HEENT Exam Head: Present: normocephalic, atraumatic Eye: Present: PERRL. Absent: scleral injection ENT: Present: mucous membranes moist - *Routine Neck Exam Present: supple, full ROM. Absent: carotid bruit, lymphadenopathy, thyromegaly - *Routine Respiratory Exam Present: CTA bilaterally (A&P) - *Routine Cardiovascular Exam Present: RRR, bradycardia - *Routine Abdominal Exam Present: soft, normoactive bowel sounds. Absent: tenderness, distended, guarding - *Routine Extremities Exam Absent: edema, calf tenderness - *Routine Neurological Exam Present: alert, oriented X3. Absent: motor deficit - Routine Psychiatric Exam Present: normal affect, normal thought process <Jen Duong - 07/20/17 16:31> Results Labs on day of discharge: Labs from last 24 hours 07/20/17 05:30 Sodium 140 Potassium 4.0 Chloride 106 Carbon Dioxide 24 Anion Gap 14.0 BUN 17 D Creatinine 1.09 Estimated Creat Clear 106 Estimated GFR 69 Est GFR ( Amer) 83 Glucose 129 H <Jen Duong - 07/20/17 16:31> DS: Diagnosis - Discharge Diagnosis (1) Chest pain Status: Acute (2) Stented coronary artery Status: Acute (3) Angina, class III Status: Chronic (4) CAD (coronary artery disease) Status: Chronic (5) HHD (hypertensive heart disease) Status: Chronic (6) HLD (hyperlipidemia) Status: Chronic <Jen Duong - 07/20/17 16:25> (1) Chest pain Status: Acute (2)
--- NOTE | 2017-07-20 16:28 | P.DS_ITS ---
General - General Admission date: 07/18/17 <Jen Duong - 07/20/17 16:31> Discharge date: 07/20/17 <Jen Duong - 07/20/17 16:31> HPI HPI: Mr Fuentes is a 62-year-old white male with history of coronary artery disease status post coronary stenting several years ago who presented to the emergency department for worsening chest pain and shortness of breath. Patient noted a two-month history of increasing episodes of chest discomfort that resolved with sublingual nitroglycerin. He related exertional shortness of breath that resolved with rest. Patient was seen in the cardiac office earlier this month and started on both beta-shayy and Norvasc for suspected unstable angina with plans to proceed with cardiac catheterization. Patient called the cardiac office early the morning of admission relating that his chest pain and shortness of breath had returned intermittently the previous evening and were worse. He had 2 episodes which were relieved by NTG. He was directed to the emergency department for further evaluation. With evaluation in the ER he was given aspirin to total 324 mg daily. EKG in the ER showed sinus bradycardia without acute change. Patient was asymptomatic. He was admitted for cardiac evaluation. <Jen Duong - 07/20/17 16:31> Hospital Course Hospital Course: The patient was seen by cardiology who performed a heart cath. He had severe to critical 2 vessel coronary artery disease involving the proximal LAD and mid dominant right coronary artery. He had successful stenting of the proximal LAD and the proximal to mid dominant right coronary artery. He had a normal EF. He was started on Brilinta and ASA and was advised to avoid tobacco , keep his LDL less than 55, and start cardiac rehab. His norvasc and bisoprolol were discontinued d/t low BP and bradycardia. He did well post stenting and was stable to be discharged home with a cardiology f/u in 1 week. <Jen Duong - 07/20/17 16:31> Objective Vital signs: Temp Pulse Resp BP Pulse Ox 98.0 F 56 L 22 90/47 96 07/19/17 20:00 07/20/17 08:00 07/20/17 08:00 07/20/17 08:00 07/20/17 08:00 <Kvng Mae - 09/01/17 21:23> Temp Pulse Resp BP Pulse Ox 98.0 F 56 L 22 90/47 96 07/19/17 20:00 07/20/17 08:00 07/20/17 08:00 07/20/17 08:00 07/20/17 08:00 <Jen Duong - 07/20/17 16:31> Narrative: - Constitutional no acute distress - *Routine HEENT Exam Head: Present: normocephalic, atraumatic Eye: Present: PERRL. Absent: scleral injection ENT: Present: mucous membranes moist - *Routine Neck Exam Present: supple, full ROM. Absent: carotid bruit, lymphadenopathy, thyromegaly - *Routine Respiratory Exam Present: CTA bilaterally (A&P) - *Routine Cardiovascular Exam Present: RRR, bradycardia - *Routine Abdominal Exam Present: soft, normoactive bowel sounds. Absent: tenderness, distended, guarding - *Routine Extremities Exam Absent: edema, calf tenderness - *Routine Neurological Exam Present: alert, oriented X3. Absent: motor deficit - Routine Psychiatric Exam Present: normal affect, normal thought process <Jen Duong - 07/20/17 16:31> Results Labs on day of discharge: Labs from last 24 hours 07/20/17 05:30 Sodium 140 Potassium 4.0 Chloride 106 Carbon Dioxide 24 Anion Gap 14.0 BUN 17 D Creatinine
== END 2017-07-20 10:07 | disposition home or self-care (01) ==
LOC: ER 14:38 → 2ND 16:35 → ICU 07-19 12:08
PROVIDERS: Internal Medicine; Admitting Provider Family Medicine; Emergency Provider Emergency Medicine; PCP Family Medicine; Visit Provider Family Medicine
DX: R07.9 Chest pain, unspecified (principal); I25.110 Atherosclerotic heart disease of native coronary artery with unstable angina pectoris; I11.9 Hypertensive heart disease without heart failure
CPT/HCPCS: 36415; 71045; 80048; 80053; 83690; 83880; 84484; 85025; 85347; 92928; 93005; 93041; 93458; 99152; 99153; 99284; C1725; C1769; C1876; C9600; G0378; J1644; Q9967

== ENCOUNTER → 2017-11-15 13:06 | Outpatient (CLI) | payer BC, SELFPAY ==
[2017-11-15 14:49] LABS: Anion Gap 13.5 mEq/L (5-15); Blood Urea Nitrogen 12 mg/dL (7-18); Calcium 9.3 mg/dL (8.5-10.1); Carbon Dioxide 32 mmol/L (21.0-32.0); Chloride 103 mmol/L (98-107); Creatinine,Serum 1.08 mg/dL (0.70-1.30); Estimated Glomerular Filt Rate 70 ml/min (>60); GFR (African American) 84 ML/MIN (>60); Glucose 94 mg/dL (74-106); Potassium 4.5 mmoL/L (3.5-5.1); Sodium 144 mmol/L (136-145)
== END ==
PROVIDERS: PCP Family Medicine; Visit Provider Internal Medicine
DX: E78.4 Other hyperlipidemia (principal)
CPT/HCPCS: 36415; 80048

== ENCOUNTER 2018-01-04 16:38 | Observation (INO) ==
--- NOTE | 2018-01-04 16:46 | Emergency Department Note ---
ED Disposition Clinical Impression: Chest pain, DESIREE (acute kidney injury) Disposition: Still a Patient Condition on Discharge: Good Referrals: Kvng Mae MD [Primary Care Provider] - - Critical Care Critical Care Time: No Attestation: On , the high probability of a clinically significant, sudden or life threatening deterioration of the following system(s) required my full and direct attention, intervention and personal management. The time I documented below is in addition to time spent performing reported procedures but includes the following listed in this critical care notation. Medical Decision Making - Medical Records MR Comment: X-ray read by radiology is no acute disease. Patient was from acute kidney injury his creatinine is usually around 1.0 is now 1.74. 604pm pt having some chest pressure, mary RN to give nitro sl. pain free post nitro. 635 mary Tirado desires Brilinat 180mg now, then 90 bid. call to hospitalist. [phone] mary Tavares MD - Baljit Inquiry Pt receiving controlled substance: No Vital Signs: 01/04/18 16:40 01/04/18 17:08 01/04/18 17:30 Temperature 97.7 F Temperature Source Oral Pulse Rate [Right Brachial] 75 76 76 Respiratory Rate 18 18 20 Blood Pressure [Right Arm] 145/61 123/76 122/70 Blood Pressure Mean [Right Arm] 89 91 87 Blood Pressure Source [Right Arm] Automatic Cuff Automatic Cuff Automatic Cuff Blood Pressure Position [Right Arm] Sitting Sitting Supine 02 Sat by Pulse Oximetry 96 95 96 Oxygen Delivery Method Room Air Room Air Room Air 01/04/18 18:00 Temperature Temperature Source Pulse Rate [Right Brachial] 77 Respiratory Rate 24 Blood Pressure [Right Arm] 108/70 Blood Pressure Mean [Right Arm] 82 Blood Pressure Source [Right Arm] Automatic Cuff Blood Pressure Position [Right Arm] Supine 02 Sat by Pulse Oximetry 94 L Oxygen Delivery Method Room Air - Lab Data Lab Results 01/04/18 16:45: WBC 5.6, RBC 5.03, Hgb 15.5, Hct 45.0, MCV 89.6, MCH 30.8, MCHC 34.4, RDW 14.3, Plt Count 166, MPV 8.2, Neut % (Auto) 63.1, Lymph % (Auto) 26.9 , [place] % (Auto) 6.7, Eos % (Auto) 2.6, Baso % (Auto) 0.6, Neut # (Auto) 3.5, Lymph # (Auto) 1.5, [place] # (Auto) 0.4, Eos # (Auto) 0.1, Baso # (Auto) 0.0 01/04/18 16:45: Sodium 137, Potassium 4.3, Chloride 102, Carbon Dioxide 30, Anion Gap 9.3, BUN 20 H, Creatinine 1.74 H, Estimated Creat Clear 61, Estimated GFR 40 L, Est GFR ( Amer) 49 L, Glucose 129 H, Calcium 8.4 L, Troponin I < 0.02 01/04/18 16:45: Total Bilirubin 0.8, Direct Bilirubin 0.2, Indirect Bilirubin 0.6, AST 12 L, ALT 40, Alkaline Phosphatase 102, Total Protein 7.2, Albumin 4.0 01/04/18 16:45: B-Natriuretic Peptide 21 Result diagrams: 01/04/18 16:45 01/04/18 16:45 Orders (Tests/Meds): ED MEDICATIONS Generic Name Dose Route Start Last Admin Trade Name Freq PRN Reason Stop Dose Admin Nitroglycerin 0.4 mg 01/04/18 16:52 01/04/18 18:15 Nitrostat 0.4mg Sl Tablet SL 02/03/18 16:51 1 dose Q5MINP PRN Administration Chest Pain Discontinued Medications Generic Name Dose Route Start Last Admin Trade Name Freq PRN Reason Stop Dose Admin Aspirin 243 mg 01/04/18 16:42 01/04/18 16:44 Aspirin Ec 325mg Tablet PO 01/04/18 16:43 243 mg ONCE ONE Administration Ticagrelor 180 mg 01/04/18 18:33 Brilinta 90mg Tablet PO 01/04/18 18:34 ONCE ONE ORDERS Category Date Time Status ECG Request by /Nse Stat Y 01/04/18 16:42 Ordered - ECG Data Tracing #1 ER EKG read by myself shows normal sinus rhythm rate of 71, rr', normal axis, no QT prolongation, nonspecific EKG General Adult HPI - General Chief complaint: Chest Pain Stated complaint: chest pressure Time Seen by Provider: 01/04/18 16:54 - History of Present Illness HPI narrative: Since states he has chest heaviness nausea shortness of breath the past week he states it has not gone away. He states it does get worse with climbing stairs. States eating has no effect on it. no Complaint of fever chills or cough. no Radiation. 4 over 10 currently - Related Data Home Medications Medication Instructions Recorded Confirmed aspirin 81 mg tablet,delayed 81 mg PO DAILY 07/12/17 01/04/18 release Escitalopram Oxalate 20 mg PO DAILY 10/21/17 01/04/18 naproxen 500 mg tablet 500 mg PO BID 11/01/17 01/04/18 Clopidogrel Bisulfate [Plavix 75mg 75 mg PO DAILY 01/04/18 01/04/18 Tab] Furosemide [Furosemide 80mg Tab] 80 mg PO QAM 01/04/18 01/04/18 Spironolactone 100 mg PO QAM 01/04/18 01/04/18 Previous Rx's Medication Instructions Recorded atorvastatin 20 mg tablet 20 mg PO HS #30 tab 11/01/17 nitroglycerin 0.4 mg sublingual 0.4 mg SUBLINGUAL Q5M PRN #25 tab 01/03/18 tablet Allergies Allergy/AdvReac Type Severity Reaction Status Date / Time No Known Allergies Allergy Verified 10/21/17 17:13 [facility] History I have reviewed the patient's past medical history: Yes Medical History: Reports:: Atherosclerotic Heart Disease, Coronary Artery Disease, Myocardial Infarction Denies:: Arrhythmia, Asthma, Cancer, Diabetes Mellitus Type 1, Diabetes Mellitus Type 2, Gastroesophageal Reflux Disease(GERD), Hypertension, Internal Pacemaker, MRSA, Seizures Other Surgeries: Yes: Cardiac Catheterization (10/24/17 no stents), Coronary Stent, Other. No: Pacemaker Amputation: No Fractures: No Comment: 2007 sinus surgery - Social History Smoking Status: Former smoker Tobacco Type: cigarettes Alcohol Intake: never Alcohol Intake Frequency:: other Occupational Status: employed, other Housing: house Household Members: spouse Family Hx:: Coronary Artery Disease, Diabetes, Heart Attack, Stroke ROS Obtained: Yes All systems reviewed & no additional complaints Physical Exam General Appearance: Nontoxic Head: Normocephalic, without obvious abnormality, atraumatic. Eyes: conjunctiva/corneas clear ENT: Mucous membranes moist. Neck: No jugular venous distention. Cardiac: regular rate and rhythm Lungs: Clear to auscultation bilaterally Abdomen: Nontender, Nondistended, positive bowel sounds, no rebound : No CVA tenderness Extremities: no edema Musculoskeletal: No chest wall tenderness Skin: No rashes or lesions to exposed skin. Neurologic: Alert. No gross focal deficits Psychiatric: Normal affect - General General appearance: alert - Respiratory Respiratory exam: Absent: respiratory distress - Cardiovascular Cardiovascular exam: Absent: JVD - Neurological Exam Neurological exam: Present: alert
[2018-01-04 16:59] LABS: Basophils % 0.6 % (0.1-2.0); Eosinophils # 0.1 K/mm3 (0.0-0.4); Eosinophils % 2.6 % (0.1-12.0); Hemoglobin 15.5 g/dL (14.1-18.0); Lymphocytes # 1.5 K/mm3 (0.7-4.5); Lymphocytes % 26.9 K/mm3 (10-50); Mean Corpuscular HGB Conc 34.4 g/dL (31.8-35.4); Mean Corpuscular Hemoglobin 30.8 pg (27.0-31.2); Mean Corpuscular Volume 89.6 fl (80-94); Mean Platelet Volume 8.2 fl (7.4-10.4); Monocytes # 0.4 K/mm3 (0.1-1.0); Monocytes % 6.7 % (1.7-9.3); Neutrophils # 3.5 K/mm3 (1.8-7.8); Neutrophils % 63.1 % (37.0-80.0); Platelet Count 166 K/mm3 (142-424); Red Blood Count 5.03 M/mm3 (4.60-6.20); Red Cell Distribution Width 14.3 % (11.5-17.5); White Blood Count 5.6 K/mm3 (4.8-10.8)
[2018-01-04 17:17] LABS: Anion Gap 9.3 mEq/L (5-15); Blood Urea Nitrogen 20 mg/dL (7-18); Calcium 8.4 mg/dL (8.5-10.1); Carbon Dioxide 30 mmol/L (21.0-32.0); Chloride 102 mmol/L (98-107); Glucose 129 mg/dL (74-106); Potassium 4.3 mmoL/L (3.5-5.1); Sodium 137 mmol/L (136-145)
[2018-01-04 17:49] LABS: Bilirubin,Total 0.8 mg/dL (0.2-1.0); Total Protein,Serum 7.2 gm/dL (6.4-8.2)
[2018-01-04 18:21] LABS: Bilirubin,Direct 0.2 mg/dL (0.0-0.2); Bilirubin,Indirect 0.6 mg/dL (0.0-0.9)
--- NOTE | 2018-01-05 07:24 | Pharmacy Consult Notes ---
[facility] Pharmacy VTE Monitoring - Patient Demographics Admission date: 01/04/18 Report Date: 01/05/18 Time: 07:23 Allergies/Adverse Reactions: Patient Allergies No Known Allergies Allergy (Verified 10/21/17 17:13) Height: 1.78 m Weight: 98.231 kg Patient Problems: Current Active Problems (This Medical Record has been edited. Action required.) Chest pain (Acute) DESIREE (acute kidney injury) (Acute) - VTE Risk Labs: VTE Related Lab Results Hgb 15.5 g/dL (14.1-18.0) 01/04/18 16:45 Hct 45.0 % (42.0-52.0) 01/04/18 16:45 Plt Count 166 K/mm3 (142-424) 01/04/18 16:45 BUN 20 mg/dL (7-18) H 01/04/18 16:45 Creatinine 1.74 mg/dL (0.70-1.30) H 01/04/18 16:45 Estimated Creat Clear 61 mL/min (0-300) 01/04/18 16:45 VTE Score: 3 VTE Risk Level: Low Risk - Prophylaxis VTE Prophylaxis Ordered?: Yes Types of VTE Prophylaxis: IPCS Knee High, Pharmacological Location of Applied Device: Bilateral Lower Extremeties Pharmacologic Type: Other ([place]IL[place]) - VTE Diagnosis Confirmed Treatment or plan recommended: Continue Current Treatment
--- NOTE | 2018-01-05 08:07 | Consult Report ---
History of Present Illness Consult date: 01/05/18 Consult reason: chest pain Chief complaint: chest pressure Additional Medical History:: 1. Hyperlipidemia 2. Coronary artery disease A. Cardiac catheterization with subsequent coronary artery stenting, 07/2017 , drug-eluting stent placed to LAD and mid dominant RCA. Normal LVEF and mildly elevated LVEDP. Widely patent stent to non-dominant mid circumflex. B. Cardiac cath, 10/2017, widely patent stents, normal LVEF with LVEDP of 35 mm Hg. 3. Diastolic dysfunction 4. Arthritis History of present illness: 62-year-old white male with known coronary artery disease including coronary stenting in July of this year and repeat cardiac catheterization in October 2017 showing patent stents, presented to the emergency department yesterday for 1-2 weeks of shortness of breath and intermittent chest pressure. Some increase with activity and improvement with rest. 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 Patient was given a sublingual nitroglycerin in the emergency department with improvement and resolution of symptoms shortly thereafter. Due to the nature of his symptoms and relief with nitroglycerin he was kept overnight for observation. Troponins have returned normal 2. EKG showed sinus rhythm with no acute ST segment changes. His BNP is 21 with mild renal insufficiency on lab work. Chest x-ray showed no acute abnormality and no evidence of congestive heart failure. This a.m. the patient is comfortable at rest with no chest pain. He states these are the similar symptoms for which she had cardiac catheterization in October of this year with no evidence of stent thrombosis and no significant coronary artery disease. He was noted to have elevated left ventricular end-diastolic pressures and was started on diuretic therapy. He has not received significant improvement in shortness of breath since starting diuretic therapy. Cardiology consulted for evaluation recommendations. Patient denies any significant reflux or heartburn type symptoms. He does use naproxen daily. [facility] History Medical History: Reports:: Atherosclerotic Heart Disease, Coronary Artery Disease, Myocardial Infarction Denies:: Arrhythmia, Asthma, Cancer, Diabetes Mellitus Type 1, Diabetes Mellitus Type 2, Gastroesophageal Reflux Disease(GERD), Hypertension, Internal Pacemaker, MRSA, Seizures Other Surgeries: Yes: Cardiac Catheterization (10/24/17 no stents), Coronary Stent, Other. No: Pacemaker Amputation: No Fractures: No - *Social History Educational Level: Completed College Smoking Status: Never smoker Tobacco Type: cigarettes Alcohol Intake: never Alcohol Intake Frequency:: other Occupational Status: employed, other Housing: house Household Members: spouse - Psychiatric History Expresses thoughts of harming self/others: None Suicide Plan Description: No Plan *Family Hx:: Coronary Artery Disease, Diabetes, Heart Attack, Stroke Meds Home Medications Medication Instructions Recorded Confirmed Type aspirin 81 mg tablet,delayed 81 mg PO DAILY 07/12/17 01/04/18 History release Escitalopram Oxalate 20 mg PO DAILY 10/21/17 01/04/18 History naproxen 500 mg tablet 500 mg PO BID 11/01/17 01/04/18 History Clopidogrel Bisulfate [Plavix 75mg 75 mg PO DAILY 01/04/18 01/04/18 History Tab] Furosemide [Furosemide 80mg Tab] 80 mg PO DAILY 01/04/18 01/05/18 History Spironolactone 100 mg PO DAILY 01/04/18 01/05/18 History Nitroglycerin 0.4 mg SUBLINGUAL Q5M PRN 01/05/18 01/04/18 History Allergies Allergy/AdvReac Type Severity Reaction Status Date / Time No Known Allergies Allergy Verified 10/21/17 17:13 Review of Systems - *Cardiovascular Reports chest pain, Reports shortness of breath with activity - *Respiratory Reports shortness of breath with activity - *Gastrointestinal Denies abdominal pain - *Musculoskeletal Denies joint pain Exam Vital signs and Labs for Last 24 Hours: Temp Pulse Resp BP Pulse Ox 97.7 F 52 L 18 108/67 97 01/05/18 07:32 01/05/18 07:32 01/05/18 07:32 01/05/18 07:32 01/05/18 07:32 Laboratory Results - last 24 hr 01/04/18 16:45: WBC 5.6, RBC 5.03, Hgb 15.5, Hct 45.0, MCV 89.6, MCH 30.8, MCHC 34.4, RDW 14.3, Plt Count 166, MPV 8.2, Neut % (Auto) 63.1, Lymph % (Auto) 26.9 , [place] % (Auto) 6.7, Eos % (Auto) 2.6, Baso % (Auto) 0.6, Neut # (Auto) 3.5, Lymph # (Auto) 1.5, [place] # (Auto) 0.4, Eos # (Auto) 0.1, Baso # (Auto) 0.0 01/04/18 16:45: Sodium 137, Potassium 4.3, Chloride 102, Carbon Dioxide 30, Anion Gap 9.3, BUN 20 H, Creatinine 1.74 H, Estimated Creat Clear 61, Estimated GFR 40 L, Est GFR ( Amer) 49 L, Glucose 129 H, Calcium 8.4 L, Troponin I < 0.02 01/04/18 16:45: Total Bilirubin 0.8, Direct Bilirubin 0.2, Indirect Bilirubin 0.6, AST 12 L, ALT 40, Alkaline Phosphatase 102, Total Protein 7.2, Albumin 4.0 01/04/18 16:45: B-Natriuretic Peptide 21 01/04/18 19:10: Troponin I < 0.02 I & O for Last 24 hours: Intake & Output 01/02/18 01/03/18 01/04/18 01/05/18 11:59 11:59 11:59 11:59 Weight 216 lb 9 oz - *Routine Neck Exam Absent: JVD, carotid bruit - *Routine Respiratory Exam Present: CTA bilaterally. Absent: rhonchi, wheezes - *Routine Cardiovascular Exam Present: RRR. Absent: murmur, gallop, rubs - *Routine Abdominal Exam Present: soft. Absent: tenderness - *Routine Extremities Exam Absent: edema - *Routine Neurological Exam Present: alert, oriented X3, moving all extremities Assessment and Plan (1) Fatigue Current visit: Yes Status: Acute Category: Medical Code(s): R53.83 - Other fatigue (2) Chest pain Current visit: Yes Status: Acute Category: Medical Code(s): R07.9 - Chest pain, unspecified (3) Diastolic dysfunction Current visit: Yes Status: Acute Category: Medical Code(s): I51.9 - Heart disease, unspecified (4) CAD (coronary artery disease) Current visit: No Status: Chronic Qualifiers: Category: Medical Code(s): I25.10 - Atherosclerotic heart disease of [place] coronary artery without angina pectoris (5) HLD (hyperlipidemia) Current visit: No Status: Chronic Qualifiers: Category: Medical Code(s): E78.5 - Hyperlipidemia, unspecified (6) Stented coronary artery Current visit: No Status: Chronic Category: Surgical Code(s): Z95.5 - Presence of coronary angioplasty implant and graft - Assessment and plan all Dx Assessment and Plan for all problems:: 1. Patient complaining of chest pressure and fatigue over the last couple of weeks. Patient has normal troponins 2, EKG without acute changes and recent cardiac catheterization in October showing patent coronary stents with only mild coronary artery disease but with severely elevated left ventricular end- diastolic pressure for which diuretic diuretic therapy had been started. Would recommend proceeding with exercise Myoview today with further recommendations following those results. 2. Possible esophageal spasm, therefore will start PPI therapy. 3. Mild renal insufficiency on high-dose diuretic therapy, will decrease upon discharge.
--- NOTE | 2018-01-05 08:22 | History & Physical Report ---
*Admission Date: 01/04/18 <Jen Duong 01/05/18 08:30> *Chief complaint: chest pain, SOA <Jen Duong 01/05/18 08:30> *History of present illness: Mr. Fuentes 62-year-old male who is been having chest pressure, shortness of breath, and fatigue over the last few weeks. He states the chest pressure is not related to exertion. It can happen at rest and many times happens when he puts his arms above his head. He states it feels like something is sitting on his chest and he gets extremely fatigued. If he takes a nitroglycerin, the pressure subsides. He just recently had a heart cath in July with 2 stents placed. He had a repeat cath in November showing patent coronary stents with only mild coronary artery disease but with severely elevated left ventricular end-diastolic pressure for which diuretic diuretic therapy was started. He presented to the ER and was admitted. His troponins have been normal 2 and his EKG has not shown any acute changes. His renal functions were elevated. Cardiology was consulted. <Jen Duong 01/05/18 08:30> [facility] [place] History Medical History: Reports:: Atherosclerotic Heart Disease, Coronary Artery Disease, Myocardial Infarction Denies:: Arrhythmia, Asthma, Cancer, Diabetes Mellitus Type 1, Diabetes Mellitus Type 2, Gastroesophageal Reflux Disease(GERD), Hypertension, Internal Pacemaker, MRSA, Seizures <Jen Duong 01/05/18 08:30> Other Surgeries: Yes: Cardiac Catheterization (10/24/17 no stents), Coronary Stent, Hernia Repair, Other (sinus surgery). No: Pacemaker <Jen Duong 01/05/18 08:30> Amputation: No <Jen Duong 01/05/18 08:30> Fractures: No <Jen Duong 01/05/18 08:30> - *Social History Educational Level: Completed College <Jen Duong 01/05/18 08:30> Smoking Status: Never smoker <Jen Duong 01/05/18 08:30> Tobacco Type: cigarettes <Jen Duong 01/05/18 08:30> Alcohol Intake: never <Jen Duong 01/05/18 08:30> Alcohol Intake Frequency:: other <Jen Duong 01/05/18 08:30> Occupational Status: employed, other <Jen Duong 01/05/18 08:30> Housing: house <Jen Duong 01/05/18 08:30> Household Members: spouse <Jen Duong 01/05/18 08:30> - Psychiatric History Expresses thoughts of harming self/others: None <Jen Duong 01/05/18 08: 30> Suicide Plan Description: No Plan <Jen Duong 01/05/18 08:30> *Family Hx:: Coronary Artery Disease, Diabetes, Heart Attack, Stroke <Jen Duong 01/05/18 08:30> Review of Systems - Constitutional Reports fatigue, Denies body ache(s), Denies fever(s) <Jen Duong 08:30> - Eyes Denies blurry vision, Denies double vision <Jen Duong 01/05/18 08:30> - ENT Denies nasal congestion, Denies sore throat <Jen Duong 01/05/18 08:30> - *Cardiovascular Reports chest pain, Reports shortness of breath <Jen Duong 01/05/18 08: 30> - *Respiratory Reports shortness of breath, Denies cough <Jen Duong 01/05/18 08:30> - *Gastrointestinal Denies abdominal pain, Denies loose stools, Denies nausea, Denies vomiting < Jen Duong 01/05/18 08:30> - *Genitourinary Denies difficulty urinating, Denies painful urination <Jen Duong 08:30> - *Musculoskeletal Denies joint pain <Jen Duong 01/05/18 08:30> - *Neurologic Reports weakness, Denies headache(s), Denies dizziness <Jen Duong 08:30> Meds Home Medications Medication Instructions Recorded Confirmed Type aspirin 81 mg tablet,delayed 81 mg PO DAILY 07/12/17 01/04/18 History release Escitalopram Oxalate 20 mg PO DAILY 10/21/17 01/04/18 History naproxen 500 mg tablet 500 mg PO BID 11/01/17 01/04/18 History Clopidogrel Bisulfate [Plavix 75mg 75 mg PO DAILY 01/04/18 01/04/18 History Tab] Furosemide [Furosemide 80mg Tab] 80 mg PO DAILY 01/04/18 01/05/18 History Spironolactone 100 mg PO DAILY 01/04/18 01/05/18 History Nitroglycerin 0.4 mg SUBLINGUAL Q5M PRN 01/05/18 01/04/18 History <Kvng Mae - 01/05/18 13:54> Allergies Allergy/AdvReac Type Severity Reaction Status Date / Time No Known Allergies Allergy Verified 10/21/17 17:13 <Kvng Mae - 01/05/18 13:54> Exam Vital signs and Labs for Last 24 Hours: Temp Pulse Resp BP Pulse Ox 97.8 F 50 L 18 99/54 97 01/05/18 11:37 01/05/18 11:37 01/05/18 11:37 01/05/18 11:37 01/05/18 11:37 Laboratory Results - last 24 hr 01/04/18 16:45: WBC 5.6, RBC 5.03, Hgb 15.5, Hct 45.0, MCV 89.6, MCH 30.8, MCHC 34.4, RDW 14.3, Plt Count 166, MPV 8.2, Neut % (Auto) 63.1, Lymph % (Auto) 26.9 , [place] % (Auto) 6.7, Eos % (Auto) 2.6, Baso % (Auto) 0.6, Neut # (Auto) 3.5, Lymph # (Auto) 1.5, [place] # (Auto) 0.4, Eos # (Auto) 0.1, Baso # (Auto) 0.0 01/04/18 16:45: Sodium 137, Potassium 4.3, Chloride 102, Carbon Dioxide 30, Anion Gap 9.3, BUN 20 H, Creatinine 1.74 H, Estimated Creat Clear 61, Estimated GFR 40 L, Est GFR ( Amer) 49 L, Glucose 129 H, Calcium 8.4 L, Troponin I < 0.02 01/04/18 16:45: Total Bilirubin 0.8, Direct Bilirubin 0.2, Indirect Bilirubin 0.6, AST 12 L, ALT 40, Alkaline Phosphatase 102, Total Protein 7.2, Albumin 4.0 01/04/18 16:45: B-Natriuretic Peptide 01/04/18 19:10: Troponin I < 0.02 01/05/18 08:37: Sodium 139, Potassium 4.4, Chloride 108 H, Carbon Dioxide 28, Anion Gap 7.4, BUN 18, Creatinine 1.00 D, Estimated Creat Clear 108, Estimated GFR 76, Est GFR ( Amer) 92 D, Glucose 113 H, Calcium 8.5 <Kvng Mae - 01/05/18 13:54> Temp Pulse Resp BP Pulse Ox 97.7 F 52 L 18 108/67 97 01/05/18 07:32 01/05/18 07:32 01/05/18 07:32 01/05/18 07:32 01/05/18 07:32 Laboratory Results - last 24 hr 01/04/18 16:45: WBC 5.6, RBC 5.03, Hgb 15.5, Hct 45.0, MCV 89.6, MCH 30.8, MCHC 34.4, RDW 14.3, Plt Count 166, MPV 8.2, Neut % (Auto) 63.1, Lymph % (Auto) 26.9 , [place] % (Auto) 6.7, Eos % (Auto) 2.6, Baso % (Auto) 0.6, Neut # (Auto) 3.5, Lymph # (Auto) 1.5, [place] # (Auto) 0.4, Eos # (Auto) 0.1, Baso # (Auto) 0.0 01/04/18 16:45: Sodium 137, Potassium 4.3, Chloride 102, Carbon Dioxide 30, Anion Gap 9.3, BUN 20 H, Creatinine 1.74 H, Estimated Creat Clear 61, Estimated GFR 40 L, Est GFR ( Amer) 49 L, Glucose 129 H, Calcium 8.4 L, Troponin I < 0.02 01/04/18 16:45: Total Bilirubin 0.8, Direct Bilirubin 0.2, Indirect Bilirubin 0.6, AST 12 L, ALT 40, Alkaline Phosphatase 102, Total Protein 7.2, Albumin 4.0 01/04/18 16:45: B-Natriuretic Peptide 01/04/18 19:10: Troponin I < 0.02 <Jen Duong - 01/05/18 08:30> I & O for Last 24 hours: Intake & Output 01/03/18 01/04/18 01/05/18 01/06/18 11:59 11:59 11:59 11:59 Weight 216 lb 9 oz <Kvng Mae - 01/05/18 13:54> Intake & Output 01/02/18 01/03/18 01/04/18 01/05/18 11:59 11:59 11:59 11:59 Weight 216 lb 9 oz <Jen Duong - 01/05/18 08:30> - Constitutional no acute distress <Jen Duong - 01/05/18 08:30> - *Routine HEENT Exam Head: Present: normocephalic, atraumatic <Jen Duong - 01/05/18 08:30> Eye: Present: EOMI, PERRL <Jen Duong - 01/05/18 08:30> ENT: Present: mucous membranes moist <Jen Duong 01/05/18 08:30> - *Routine Neck Exam Present: supple, full ROM <Jen Duong - 01/05/18 08:30> - *Routine Respiratory Exam Present: CTA bilaterally <Jen Duong 01/05/18 08:30> - *Routine Cardiovascular Exam Present: RRR <Jen Duong 01/05/18 08:30> - *Routine Abdominal Exam Present: soft, normoactive bowel sounds. Absent: tenderness <Jen Duong 01/05/18 08:30> - *Routine Extremities Exam Absent: edema <Jen Duong 01/05/18 08:30> - *Routine Skin Exam Present: intact <Jen Duong 01/05/18 08:30> - *Routine Neurological Exam Present: alert, oriented X3 <Jen Duong 01/05/18 08:30> H&P: Result - Labs Labs: Short CBC 01/04/18 Range/Units 16:45 WBC 5.6 (4.8-10.8) K/mm3 Hgb 15.5 (14.1-18.0) g/dL Hct 45.0 (42.0-52.0) % Plt Count 166 (142-424) K/mm3 BMP 01/04/18 01/05/18 16:45 08:37 Sodium 137 139 Potassium 4.3 4.4 Chloride 102 108 H Carbon Dioxide 30 28 BUN 20 H 18 Creatinine 1.74 H 1.00 D Glucose 129 H 113 H Calcium 8.4 L 8.5 Cardiac Enzymes 01/04/18 01/04/18 Range/Units 16:45 19:10 Troponin I < 0.02 < 0.02 (0.00-0.06) ng/ml Liver Function 01/04/18 Range/Units 16:45 Total Bilirubin 0.8 (0.2-1.0) mg/dL Direct Bilirubin 0.2 (0.0-0.2) mg/dL AST 12 L (15-37) U/L ALT 40 (12-78) U/L Alkaline Phosphatase 102 (46-116) U/L Albumin 4.0 (3.4-5.0) gm/dL <Kvng Mae - 01/05/18 13:54> <Jen Duong - 01/05/18 08:30> - Impressions CXR - nothing acute <Jen Duong - 01/05/18 08:30> Assessment and Plan (1) Chest pain Current visit: Yes Status: Acute Category: Medical Code(s): R07.9 - Chest pain, unspecified (2) Fatigue Current visit: Yes Status: Acute Category: Medical Code(s): R53.83 - Other fatigue (3) Diastolic dysfunction Current visit: Yes Status: Acute Category: Medical Code(s): I51.9 - Heart disease, unspecified (4) CAD (coronary artery disease) Current visit: No Status: Chronic Category: Medical Code(s): I25.10 - Atherosclerotic heart disease of [place] coronary artery without angina pectoris (5) HLD (hyperlipidemia) Current visit: No Status: Chronic Category: Medical Code(s): E78.5 - Hyperlipidemia, unspecified (6) Stented coronary artery Current visit: No Status: Chronic Category: Surgical Code(s): Z95.5 - Presence of coronary angioplasty implant and graft <Jen Duong - 01/05/18 08:18> (1) Chest pain Current visit: Yes Status: Acute Category: Medical Code(s): R07.9 - Chest pain, unspecified (2) Fatigue Current visit: Yes Status: Acute Category: Medical Code(s): R53.83 - Other fatigue (3) Diastolic dysfunction Current visit: Yes Status: Acute Category: Medical Code(s): I51.9 - Heart disease, unspecified (4) CAD (coronary artery disease) Current visit: No Status: Chronic Qualifiers: Category: Medical Code(s): I25.10 - Atherosclerotic heart disease of [place] coronary artery without angina pectoris (5) HLD (hyperlipidemia) Current visit: No Status: Chronic Qualifiers: Category: Medical Code(s): E78.5 - Hyperlipidemia, unspecified (6) Stented coronary artery Current visit: No Status: Chronic Category: Surgical Code(s): Z95.5 - Presence of coronary angioplasty implant and graft <Kvng Mae - 01/05/18 13:54> - Assessment and plan all Dx Assessment and Plan for all problems:: Patient seen and examined. Concur with assessment and plan. <Kvng Mae - 01/05/18 13:54> Cardiology has seen the patient. They plan an exercise Myoview today. They started the patient on PPI therapy for possible esophageal spasm. They also recommend to decrease diuretic therapy upon discharge due to renal insufficiency. <Jen Duong - 01/05/18 08:30>
[2018-01-05 08:53] LABS: Anion Gap 7.4 mEq/L (5-15); Calcium 8.5 mg/dL (8.5-10.1); Potassium 4.4 mmoL/L (3.5-5.1)
[2018-01-06 06:44] LABS: Basophils % 0.5 % (0.1-2.0); Eosinophils # 0.2 K/mm3 (0.0-0.4); Eosinophils % 4.2 % (0.1-12.0); Hematocrit 40.7 % (42.0-52.0); Hemoglobin 13.5 g/dL (14.1-18.0); Lymphocytes % 27.2 K/mm3 (10-50); Mean Corpuscular HGB Conc 33.2 g/dL (31.8-35.4); Mean Corpuscular Volume 90.4 fl (80-94); Mean Platelet Volume 8.3 fl (7.4-10.4); Monocytes # 0.2 K/mm3 (0.1-1.0); Monocytes % 6.4 % (1.7-9.3); Neutrophils # 2.3 K/mm3 (1.8-7.8); Neutrophils % 61.7 % (37.0-80.0); Platelet Count 139 K/mm3 (142-424); Red Cell Distribution Width 14.4 % (11.5-17.5); White Blood Count 3.8 K/mm3 (4.8-10.8)
[2018-01-06 06:49] LABS: Anion Gap 6.3 mEq/L (5-15); Calcium 8.7 mg/dL (8.5-10.1); Potassium 4.3 mmoL/L (3.5-5.1)
--- NOTE | 2018-01-06 08:13 | Progress Note ---
<Jen Duong - Last Filed: 01/06/18 08:06> Internal Medicine - PN: Subj *Date: 01/06/18 *Time: 08:06 Interval history: Patient states he is feeling well this morning. He denies any more episodes of chest pain. He slept last night and ate well yesterday. He is scheduled for heart cath this morning. Exam Vital signs and Labs for Last 24 Hours: Temp Pulse Resp BP Pulse Ox 98.1 F 64 18 98/56 97 01/06/18 07:45 01/06/18 07:45 01/06/18 07:45 01/06/18 07:45 01/06/18 07:45 Laboratory Results - last 24 hr 01/05/18 08:37: Sodium 139, Potassium 4.4, Chloride 108 H, Carbon Dioxide 28, Anion Gap 7.4, BUN 18, Creatinine 1.00 D, Estimated Creat Clear 108, Estimated GFR 76, Est GFR ( Amer) 92 D, Glucose 113 H, Calcium 8.5 01/06/18 06:36: WBC 3.8 L D, RBC 4.50 L, Hgb 13.5 L, Hct 40.7 L, MCV 90.4, MCH 30.0, MCHC 33.2, RDW 14.4, Plt Count 139 L, MPV 8.3, Neut % (Auto) 61.7, Lymph % (Auto) 27.2, [place] % (Auto) 6.4, Eos % (Auto) 4.2, Baso % (Auto) 0.5, Neut # ( Auto) 2.3, Lymph # (Auto) 1.0, [place] # (Auto) 0.2, Eos # (Auto) 0.2, Baso # (Auto ) 0.0 01/06/18 06:36: Sodium 138, Potassium 4.3, Chloride 109 H, Carbon Dioxide 27, Anion Gap 6.3, BUN 17, Creatinine 1.01, Estimated Creat Clear 107, Estimated GFR 75, Est GFR ( Amer) 91, Glucose 124 H, Calcium 8.7 I & O for Last 24 hours: Intake & Output 01/03/18 01/04/18 01/05/18 01/06/18 11:59 11:59 11:59 11:59 Intake Total 0 / 0 Balance 0 / 0 Weight 216 lb 9 oz Radiology Reports for the Last 24 Hours: Stress test 1. The EKG portion of the exercise Myoview is nondiagnostic as patient did not achieve the target heart rate, patient has good exercise capacity achieved 10.1mets of workload on treadmill, the blood pressure response to exercise was hypertensive, test was started due to mild chest pressure with exercise. 2. Scintigraphic evidence of mild reversible ischemia involving the inferior wall, either derived ejection fraction is 52% with no obvious regional wall motion abnormality, right ventricle is normal size and contractility. 3. Abnormal exercise Myoview study. - Constitutional no acute distress - *Routine Respiratory Exam Present: CTA bilaterally - *Routine Cardiovascular Exam Present: RRR - *Routine Abdominal Exam Present: soft, normoactive bowel sounds. Absent: tenderness - *Routine Extremities Exam Absent: edema Assessment and Plan (1) Chest pain Current visit: Yes Status: Acute Category: Medical Code(s): R07.9 - Chest pain, unspecified (2) Fatigue Current visit: Yes Status: Acute Category: Medical Code(s): R53.83 - Other fatigue (3) Diastolic dysfunction Current visit: Yes Status: Acute Category: Medical Code(s): I51.9 - Heart disease, unspecified (4) CAD (coronary artery disease) Current visit: No Status: Chronic Category: Medical Code(s): I25.10 - Atherosclerotic heart disease of [place] coronary artery without angina pectoris (5) HLD (hyperlipidemia) Current visit: No Status: Chronic Category: Medical Code(s): E78.5 - Hyperlipidemia, unspecified (6) Stented coronary artery Current visit: No Status: Chronic Category: Surgical Code(s): Z95.5 - Presence of coronary angioplasty implant and graft (7) Abnormal stress test Current visit: Yes Status: Acute Category: Medical Code(s): R94.39 - Abnormal result of other cardiovascular function study - Assessment and plan all Dx Assessment and Plan for all problems:: Patient scheduled for a heart cath this am. <Kvng Mae - Last Filed: 01/06/18 08:24> Internal Medicine - PN: Subj *Date: 01/06/18 *Time: 08:24 Exam Vital signs and Labs for Last 24 Hours: Temp Pulse Resp BP Pulse Ox 98.1 F 64 18 98/56 97 01/06/18 07:45 01/06/18 07:45 01/06/18 07:45 01/06/18 07:45 01/06/18 07:45 Laboratory Results - last 24 hr 01/05/18 08:37: Sodium 139, Potassium 4.4, Chloride 108 H, Carbon Dioxide 28, Anion Gap 7.4, BUN 18, Creatinine 1.00 D, Estimated Creat Clear 108, Estimated GFR 76, Est GFR ( Amer) 92 D, Glucose 113 H, Calcium 8.5 01/06/18 06:36: WBC 3.8 L D, RBC 4.50 L, Hgb 13.5 L, Hct 40.7 L, MCV 90.4, MCH 30.0, MCHC 33.2, RDW 14.4, Plt Count 139 L, MPV 8.3, Neut % (Auto) 61.7, Lymph % (Auto) 27.2, [place] % (Auto) 6.4, Eos % (Auto) 4.2, Baso % (Auto) 0.5, Neut # ( Auto) 2.3, Lymph # (Auto) 1.0, [place] # (Auto) 0.2, Eos # (Auto) 0.2, Baso # (Auto ) 0.0 01/06/18 06:36: Sodium 138, Potassium 4.3, Chloride 109 H, Carbon Dioxide 27, Anion Gap 6.3, BUN 17, Creatinine 1.01, Estimated Creat Clear 107, Estimated GFR 75, Est GFR ( Amer) 91, Glucose 124 H, Calcium 8.7 I & O for Last 24 hours: Intake & Output 01/03/18 01/04/18 01/05/18 01/06/18 11:59 11:59 11:59 11:59 Intake Total 0 / 0 Balance 0 / 0 Weight 216 lb 9 oz Assessment and Plan (1) Chest pain Current visit: Yes Status: Acute Category: Medical Code(s): R07.9 - Chest pain, unspecified (2) Fatigue Current visit: Yes Status: Acute Category: Medical Code(s): R53.83 - Other fatigue (3) Diastolic dysfunction Current visit: Yes Status: Acute Category: Medical Code(s): I51.9 - Heart disease, unspecified (4) CAD (coronary artery disease) Current visit: No Status: Chronic Qualifiers: Category: Medical Code(s): I25.10 - Atherosclerotic heart disease of [place] coronary artery without angina pectoris (5) HLD (hyperlipidemia) Current visit: No Status: Chronic Qualifiers: Category: Medical Code(s): E78.5 - Hyperlipidemia, unspecified (6) Stented coronary artery Current visit: No Status: Chronic Category: Surgical Code(s): Z95.5 - Presence of coronary angioplasty implant and graft (7) Abnormal stress test Current visit: Yes Status: Acute Category: Medical Code(s): R94.39 - Abnormal result of other cardiovascular function study - Assessment and plan all Dx Assessment and Plan for all problems:: No new complaints. Plan is per cardiology.
--- NOTE | 2018-01-06 08:42 | Progress Note ---
Subjective Date: 01/06/18 Time: 08:39 Principal diagnosis: Angina Interval history: 62 yo WM in bed in NAD. No complaints of chest pain overnight. Exam Vital signs and Labs for Last 24 Hours: Temp Pulse Resp BP Pulse Ox 98.1 F 64 18 98/56 97 01/06/18 07:45 01/06/18 07:45 01/06/18 07:45 01/06/18 07:45 01/06/18 07:45 Laboratory Results - last 24 hr 01/05/18 08:37: Sodium 139, Potassium 4.4, Chloride 108 H, Carbon Dioxide 28, Anion Gap 7.4, BUN 18, Creatinine 1.00 D, Estimated Creat Clear 108, Estimated GFR 76, Est GFR ( Amer) 92 D, Glucose 113 H, Calcium 8.5 01/06/18 06:36: WBC 3.8 L D, RBC 4.50 L, Hgb 13.5 L, Hct 40.7 L, MCV 90.4, MCH 30.0, MCHC 33.2, RDW 14.4, Plt Count 139 L, MPV 8.3, Neut % (Auto) 61.7, Lymph % (Auto) 27.2, [place] % (Auto) 6.4, Eos % (Auto) 4.2, Baso % (Auto) 0.5, Neut # ( Auto) 2.3, Lymph # (Auto) 1.0, [place] # (Auto) 0.2, Eos # (Auto) 0.2, Baso # (Auto ) 0.0 01/06/18 06:36: Sodium 138, Potassium 4.3, Chloride 109 H, Carbon Dioxide 27, Anion Gap 6.3, BUN 17, Creatinine 1.01, Estimated Creat Clear 107, Estimated GFR 75, Est GFR ( Amer) 91, Glucose 124 H, Calcium 8.7 I & O for Last 24 hours: Intake & Output 01/03/18 01/04/18 01/05/18 01/06/18 11:59 11:59 11:59 11:59 Intake Total 0 / 0 Balance 0 / 0 Weight 216 lb 9 oz - *Routine Respiratory Exam Present: CTA bilaterally - *Routine Cardiovascular Exam Present: RRR Progress Note: A&P (1) Chest pain Status: Acute Current Visit: Yes (2) Fatigue Status: Acute Current Visit: Yes (3) Diastolic dysfunction Status: Acute Current Visit: Yes (4) CAD (coronary artery disease) Status: Chronic Current Visit: No (5) HLD (hyperlipidemia) Status: Chronic Current Visit: No (6) Stented coronary artery Status: Chronic Current Visit: No (7) Abnormal stress test Status: Acute Current Visit: Yes Assessment and Plan for All Diagnoses:: [facility] today for symptomatic, inferior ischemia on GXT myoview. Will change lasix to 40 mg alternating with 80 mg every other day and spironolactone 100 mg daily upon discharge. Continue ASA and Brilinta. Add statin.
[2018-01-06 19:10] VITALS: BP 142/88
--- NOTE | 2018-01-09 08:27 | Discharge Summary ---
General - General Admission date:: 01/04/18 <Kvng Mae - 01/10/18 08:21> 01/04/18 <Do Levine - 01/09/18 08:38> Discharge date: 01/06/18 <Do Levine - 01/09/18 08:38> HPI HPI: Mr. Fuentes was a 62-year-old male who had been having chest pressure, shortness of breath, and fatigue over the last few weeks. He stated the chest pressure was not related to exertion. It could happen at rest and many times happened when he put his arms above his head. He stated it felt like something was sitting on his chest and he would become extremely fatigued. If he took a nitroglycerin, the pressure subsided. He had just recently had a heart cath in July with 2 stents placed. He had a repeat cath in November showing patent coronary stents with only mild coronary artery disease but with severely elevated left ventricular end-diastolic pressure for which diuretic diuretic therapy was started. He presented to the ER and was admitted. His troponins were normal 2 and his EKG had not shown any acute changes. His renal functions were elevated. Cardiology was consulted. <Do Levine - 01/09/18 08:38> Hospital Course Hospital Course: Cardiology was consulted and recommended exercise Myoview and PPI therapy. The patient did not achieve target heart rate on GXT Myoview which showed evidence of reversible ischemia noted inferiorly with normal LVEF. It was recommended the patient stay overnight for left heart catheterization. The patient rested well overnight and underwent left heart catheterization on 01/06/18 which showed no significant blockages and normal LVEDP. Later in the day he was stable to be discharged home with cardiology instructions for a change in his lasix dosing due to some renal insufficiency, and addition of Imdur and Ranexa as well as continuation of ASA and Plavix. <Do Levine - 01/09/18 08:38> Objective Vital signs: Temp Pulse Resp BP Pulse Ox 98 F 63 20 142/88 96 01/06/18 14:48 01/06/18 18:55 01/06/18 18:55 01/06/18 18:55 01/06/18 18:55 <Kvng Mae - 01/10/18 08:21> Temp Pulse Resp BP Pulse Ox 98 F 63 20 142/88 96 01/06/18 14:48 01/06/18 18:55 01/06/18 18:55 01/06/18 18:55 01/06/18 18:55 <Do Levine - 01/09/18 08:38> DS: Diagnosis - Discharge Diagnosis (1) Chest pain Status: Acute (2) Fatigue Status: Acute (3) Diastolic dysfunction Status: Acute (4) CAD (coronary artery disease) Status: Chronic (5) HLD (hyperlipidemia) Status: Chronic (6) Stented coronary artery Status: Chronic (7) Abnormal stress test Status: Acute <Do Levine - 01/09/18 08:24> (1) Chest pain Status: Acute (2) Fatigue Status: Acute (3) Diastolic dysfunction Status: Acute (4) CAD (coronary artery disease) Status: Chronic (5) HLD (hyperlipidemia) Status: Chronic (6) Stented coronary artery Status: Chronic (7) Abnormal stress test Status: Acute <Kvng Mae - 01/10/18 08:21> Discharge Plan - Patient Discharge Instructions ACTIVITY: Continue current activity <Do Levine - 01/09/18 08:38> DIET: cardiac <Do Levine 01/09/18 08:38> Patient Instructions: Acute Renal Failure, DI for Chest Pain <Kvng Mae - 01/10/18 08:21> Forms: <Kvng Mae - 01/10/18 08:21> - Follow up Plan Follow up with: Oscar Tirado MD [Staff Physician] - 1 week <Kvng Mae - 01/10/18 08:21> Disposition: Home, Self-Care <Kvng Mae - 01/10/18 08:21> Home Medications: Home Medications Medication Instructions Recorded Confirmed Type aspirin 81 mg tablet,delayed 81 mg PO DAILY 07/12/17 01/04/18 History release Escitalopram Oxalate 20 mg PO DAILY 10/21/17 01/04/18 History naproxen 500 mg tablet 500 mg PO BID 11/01/17 01/04/18 History Clopidogrel Bisulfate [Plavix 75mg 75 mg PO DAILY 01/04/18 01/04/18 History Tab] Furosemide [Furosemide 80mg Tab] 80 mg PO DAILY 01/04/18 01/05/18 History Spironolactone 100 mg PO DAILY 01/04/18 01/05/18 History Nitroglycerin 0.4 mg SUBLINGUAL Q5M PRN 01/05/18 01/04/18 History <Kvng Mae - 01/10/18 08:21> Prescriptions/Medication Reconciliation: Continue naproxen 500 mg tablet 500 mg PO BID atorvastatin 20 mg tablet 20 mg PO HS #30 tab isosorbide mononitrate ER 30 mg tablet,extended release 24 hr 30 mg PO QAM # 30 tab ranolazine ER 1,000 mg tablet,extended release,12 hr 1,000 mg PO Q12H #60 tab aspirin 81 mg tablet,delayed release 81 mg PO DAILY Escitalopram Oxalate 20 mg PO DAILY Clopidogrel Bisulfate [Plavix 75mg Tab] 75 mg PO DAILY Spironolactone 100 mg PO DAILY Furosemide [Furosemide 80mg Tab] 80 mg PO DAILY Nitroglycerin 0.4 mg SUBLINGUAL Q5M PRN PRN Reason: Chest Pain <Kvng Mae - 01/10/18 08:21> - Additional Information Additional Information: Concur with plan for discharge as outlined <Kvng Mae - 01/10/18 08:21>
== END 2018-01-06 19:14 | disposition home or self-care (01) ==
LOC: 2ND 16:38 → ER 16:38 → 2ND 19:46
PROVIDERS: ADMIT Family Medicine; ATTEND Family Medicine

== ENCOUNTER → 2018-05-08 10:57 | Outpatient (CLI) | payer BC, SELFPAY ==
[2018-05-08 13:07] LABS: Anion Gap 13.5 mEq/L (5-15); Blood Urea Nitrogen 16 mg/dL (7-18); Carbon Dioxide 28 mmol/L (21.0-32.0); Chloride 101 mmol/L (98-107); Creatinine,Serum 1.16 mg/dL (0.70-1.30); Estimated Glomerular Filt Rate 64 ml/min (>60); GFR (African American) 77 ML/MIN (>60); Glucose 117 mg/dL (74-106); Potassium 4.5 mmoL/L (3.5-5.1); Sodium 138 mmol/L (136-145)
== END ==
PROVIDERS: Visit Provider Urology
DX: I11.9 Hypertensive heart disease without heart failure (principal); I25.10 Atherosclerotic heart disease of native coronary artery without angina pectoris; R06.00 Dyspnea, unspecified
CPT/HCPCS: 36415; 80048; 83880

== ENCOUNTER → 2018-11-11 09:31 | Outpatient (CLI) | payer BC, SELFPAY ==
[2018-11-11 11:37] LABS: Alanine Aminotransferase 43 U/L (12-78); Albumin Level 3.7 gm/dL (3.4-5.0); Alkaline Phosphatase 88 U/L (46-116); Aspartate Amino Transferase 26 U/L (15-37); Bilirubin,Direct 0.1 mg/dL (0.0-0.2); Bilirubin,Indirect 0.7 mg/dL (0.0-0.9); Bilirubin,Total 0.8 mg/dL (0.2-1.0); Chol/HDL Ratio 6.5 (1-3.5); Cholesterol 201 mg/dL (140-200); HDL Cholesterol 31 mg/dL (27-67); LDL Cholesterol 135 mg/dL (0-130); Total Protein,Serum 6.4 gm/dL (6.4-8.2); Triglycerides 176 mg/dL (30-200); VLDL Cholesterol 35 mg/dL (0-40)
== END ==
PROVIDERS: Visit Provider Urology
DX: E78.49 Other hyperlipidemia (principal); I11.9 Hypertensive heart disease without heart failure; I25.10 Atherosclerotic heart disease of native coronary artery without angina pectoris; Z95.5 Presence of coronary angioplasty implant and graft
CPT/HCPCS: 36415; 80061; 80076

== ENCOUNTER → 2018-11-13 13:56 | Outpatient (CLI) | payer BC, SELFPAY ==
--- NOTE | 2018-11-13 14:02 | CA_ITS ---
PROCEDURE: 2-D M-mode and color Doppler study INDICATIONS FOR THE TEST: Chest pain COPD Heart Murmur Tobacco Smoking Palpitations Fatigue Syncope Edema Hypertension+Diabetes Mellitus Rheumatic Fever SOB GALLARDO Obesity Hyperlipidemia+ Family History HD Additional History PATIENT INFORMATION HEIGHT: 71 WEIGHT:211 GENDER: Male B/P:132/75 2-D/M-MODE INTERPRETATION: 2-D MEASUREMENTS OBSERVED VALUES IN CMS Right Ventricular Dimension (RVDd) 2.1 Interventricular Septum (Thickness)(IVsd) 1.1 Left Ventricular Internal Dimensions(LVIDd) 5.3 Left Ventricular Posterior Wall (Thickness)(LVPWd) 1.1 Aortic Root 3.4 Aortic Cusp Separation 2.2 Left Atrial Dimensions (LAD) 4.7 2D 1. Left atrium is mildly enlarged, left ventricle is normal size, mild concentric left ventricular hypertrophy, visually estimated ejection fraction 55% with no regional wall motion abnormality. 2. The right atrium and right ventricle are normal size and contractility. 3. The aortic, mitral and tricuspid valve leaflets are minimally thickened. 4. The pulmonic valve is poorly visualized. 5. No significant pericardial effusion noted. DOPPLER INTERROGATION: Doppler interrogation of the aortic, mitral and tricuspid valvular presence of mild mitral and tricuspid regurgitation, tricuspid regurgitation jet velocity is inadequate for calculation of the right ventricular systolic pressure, grade 1 diastolic dysfunction seen with tissue Doppler evidence of raised left atrial pressure. CONCLUSION: 1. Mildly enlarged left atrium, normal left ventricular size, mild concentric left ventricular hypertrophy, visually estimated ejection fraction 55% with no regional wall motion abnormality, grade 1 diastolic dysfunction seen with tissue Doppler evidence of raised left atrial pressure. 2. Mild mitral and tricuspid regurgitation 3. No significant pericardial effusion noted.
== END ==
PROVIDERS: PCP Family Medicine; Visit Provider Urology
DX: I25.10 Atherosclerotic heart disease of native coronary artery without angina pectoris (principal); E78.49 Other hyperlipidemia; I11.9 Hypertensive heart disease without heart failure; Z95.5 Presence of coronary angioplasty implant and graft
CPT/HCPCS: 93306

== ENCOUNTER → 2019-11-27 13:45 | Outpatient (CLI) | payer BC, SELFPAY ==
[2019-11-27 14:49] LABS: Alanine Aminotransferase 26 U/L (12-78); Albumin Level 4.2 g/dl (3.5-5.0); Alkaline Phosphatase 84 U/L (38-126); Aspartate Amino Transferase 27 U/L (17-59); Bilirubin,Direct 0.2 mg/dl (0.0-0.4); Bilirubin,Indirect 0.4 mg/dL (0.0-0.9); Bilirubin,Total 0.6 mg/dl (0.2-1.3); Bilirubin,Unconjugated 0.5 mg/dL (0.0-1.1); Chol/HDL Ratio 5.7 (1-3.5); Cholesterol 216 mg/dl (140-200); HDL Cholesterol 38 mg/dl (40-60); Total Protein,Serum 6.7 g/dl (6.3-8.2); Triglycerides 289 mg/dl (30-150); VLDL Cholesterol 58 mg/dL (0-40)
[2019-11-27 15:00] LABS: Direct LDL Cholesterol 142.39 mg/dL (100-129)
== END ==
PROVIDERS: Visit Provider Nurse Practitioner Family
DX: E78.49 Other hyperlipidemia (principal); I11.9 Hypertensive heart disease without heart failure; I25.10 Atherosclerotic heart disease of native coronary artery without angina pectoris; I51.89 Other ill-defined heart diseases; G47.9 Sleep disorder, unspecified; R40.0 Somnolence; Z95.5 Presence of coronary angioplasty implant and graft
CPT/HCPCS: 36415; 80061; 80076

== ENCOUNTER → 2019-12-03 11:53 | Outpatient (CLI) | payer BC, SELFPAY | LOC: SL 11:55 | PROVIDERS: PCP Family Medicine; Visit Provider Nurse Practitioner Family | DX: G47.33 Obstructive sleep apnea (adult) (pediatric) (principal) | CPT/HCPCS: G0399 ==

== ENCOUNTER → 2020-01-24 08:51 | Outpatient (CLI) | payer BC, SELFPAY ==
[2020-01-24 09:15] LABS: Basophils % 0.4 % (0.1-2.0); Eosinophils # 0.1 K/mm3 (0.0-0.4); Eosinophils % 3.1 % (0.1-12.0); Hematocrit 44.7 % (42.0-52.0); Hemoglobin 15.4 g/dL (14.1-18.0); Lymphocytes # 1.3 K/mm3 (0.7-4.5); Lymphocytes % 30.5 % (10-50); Mean Corpuscular HGB Conc 34.5 g/dL (31.8-35.4); Mean Corpuscular Hemoglobin 31.9 pg (27.0-31.2); Mean Corpuscular Volume 92.4 fl (80-94); Mean Platelet Volume 8.4 fl (7.4-10.4); Monocytes # 0.3 K/mm3 (0.1-1.0); Monocytes % 7.6 % (1.7-9.3); Neutrophils # 2.5 K/mm3 (1.8-7.8); Neutrophils % 58.4 % (37.0-80.0); Platelet Count 148 K/mm3 (142-424); Red Blood Count 4.84 M/mm3 (4.60-6.20); Red Cell Distribution Width 14.3 % (11.5-17.5); White Blood Count 4.3 K/mm3 (4.8-10.8)
[2020-01-24 10:15] LABS: Alanine Aminotransferase 23 U/L (12-78); Albumin/Globulin Ratio 1.7 (1.1-1.8); Alkaline Phosphatase 62 U/L (38-126); Anion Gap 12.9 mEq/L (5-15); Aspartate Amino Transferase 26 U/L (17-59); Bilirubin,Total 0.9 mg/dl (0.2-1.3); Blood Urea Nitrogen 14 mg/dl (9-20); Calcium 9.2 mg/dl (8.4-10.2); Carbon Dioxide 28 mmol/L (22.0-30.0); Chloride 106 mmol/L (98-107); Estimated Glomerular Filt Rate 85 ml/min (>60); GFR (African American) 103 ML/MIN (>60); Globulin 2.3 g/dL (1.3-3.2); Glucose 107 mg/dl (74-100); Potassium 4.9 mmoL/L (3.5-5.1); Sodium 142 mmol/L (136-145); Total Protein,Serum 6.3 g/dl (6.3-8.2)
[2020-01-24 10:26] LABS: Thyroid Stimulating Hormone 1.43 uIU/mL (0.465-4.68)
[2020-01-25 10:16] LABS: Vitamin B12 325 pg/mL (232-1245)
[2020-02-03 18:47] LABS: 1,25 Dihydroxy Vitamin D 56 pg/mL (.); 1,25-Dihydroxy, Vitamin D-2 <10 pg/mL (.); 1,25-Dihydroxy, Vitamin D-3 56 pg/mL (.)
== END ==
PROVIDERS: Visit Provider Nurse Practitioner Family
DX: G47.33 Obstructive sleep apnea (adult) (pediatric) (principal); G47.8 Other sleep disorders; R53.83 Other fatigue; Z68.30 Body mass index [BMI] 30.0-30.9, adult
CPT/HCPCS: 36415; 80053; 82607; 82652; 84443; 85025

== ENCOUNTER → 2020-03-20 10:32 | Outpatient (CLI) | payer BC, SELFPAY ==
--- NOTE | 2020-03-20 10:43 | CA_ITS ---
APPROVED REPORT EXAM: Comprehensive 2D, Doppler, and color-flow Echocardiogram Control System Computer Scientist: Renee Martinez RVT Ht: 5 ft 10 in Wt: 209lbs BSA: 2.13 BP: 150/84 mmHg Indications: ANGINA,SHERLEY,CAD,STENT,EX SMOKER,HLD 2D Dimensions Aortic Root 1.92 cm M: 3.1 - 3.7 M-Mode Dimensions RVDd 3.00 cm (0.9-2.6) LA Diam 3.66 cm (1.9-4.0) LVDd 4.86 cm (3.5-5.7) Ao Diam 3.09 cm (2.0-3.7) LVDs 3.33 cm (3.5-5.7) IVSd 1.07 cm (0.6-1.1) PWd 0.72 cm (0.6-1.1) EF (Teich) 59.30% FS 31.50% EDV (Teich) 110.70 mL ESV (Teich) 45.10 mL LV Diastology E Decel Time 163.00 (160-240 msec) E/A Ratio 0.7 MED E' 6.20 (< 7 cm/sec) E'/MED E' Ratio 9.47 (>14) LAT E' 7.30 (<10 cm/sec) E/LAT E' Ratio 8.04 (>14) Mitral Valve MV E Max Markell. 59.00 (40-130 cm/s) MV A Velocity 82.00 (40-130 cm/s) E/A Ratio 0.72 MV Decel. Time 163.00 (160-240 ms) MV PHT 48.00 ms Pulmonary Valve PV Peak Velocity 75.00 (50-150 cm/s) Tricuspid Valve TR P. Velocity 213.00 cm/s Left Ventricle Left atrium is mildly enlarged, left ventricle is normal size, mild concentric left ventricular hypertrophy, visually estimated ejection fraction 55% with no regional wall motion abnormality, grade 1 diastolic dysfunction seen without tissue Doppler evidence of raise left atrial pressure. Right Ventricle Right atrium right ventricle mildly enlarged with normal contractility. Aortic Valve Aortic valve is minimally thickened and fibrosed, there is no aortic stenosis or aortic insufficiency. Mitral Valve Mitral valve grossly normal, there is mild mitral regurgitation. Tricuspid Valve Tricuspid valve grossly normal, there is mild tricuspid regurgitation, tricuspid regurgitation jet processing adequate for calculation of the right ventricular systolic pressure. Pulmonic Valve Pulmonic valve is poorly visualized. Great Vessels Aortic root is normal size. Pericardium No significant pericardial effusion noted. Conclusion 1. Mild biatrial enlargement, normal left ventricular size, mild concentric left ventricular hypertrophy, visually estimated ejection fraction 55% with no regional wall motion abnormality, grade 1 diastolic dysfunction seen without tissue Doppler evidence of raise left atrial pressure. 2. Mildly enlarged right ventricle with normal contractility. 3. Mild mitral and tricuspid regurgitation. 4. No significant pericardial effusion noted. Electronically signed by : Valeriano Barrera, 03/20/2020 15:25:23
[2020-03-20 10:55] LABS: Basophils % 0.6 % (0.1-2.0); Eosinophils # 0.1 K/mm3 (0.0-0.4); Eosinophils % 3.1 % (0.1-12.0); Hematocrit 49.1 % (42.0-52.0); Lymphocytes # 1.1 K/mm3 (0.7-4.5); Lymphocytes % 27.8 % (10-50); Mean Corpuscular HGB Conc 32.5 g/dL (31.8-35.4); Mean Corpuscular Hemoglobin 30.6 pg (27.0-31.2); Mean Corpuscular Volume 93.9 fl (80-94); Mean Platelet Volume 7.9 fl (7.4-10.4); Monocytes # 0.4 K/mm3 (0.1-1.0); Monocytes % 9.5 % (1.7-9.3); Neutrophils # 2.4 K/mm3 (1.8-7.8); Platelet Count 164 K/mm3 (142-424); Red Blood Count 5.22 M/mm3 (4.60-6.20); Red Cell Distribution Width 14.2 % (11.5-17.5)
[2020-03-20 12:24] LABS: Hemoglobin A1C 5.6 % (4.0-6.0)
[2020-03-20 12:55] LABS: Coronavirus 19 IgG Antibody Negative (Negative); Coronavirus 19 IgM Antibody Negative (Negative)
[2020-03-20 13:14] LABS: Chloride 103 mmol/L (98-107); Potassium 4.9 mmoL/L (3.5-5.1); Sodium 140 mmol/L (136-145)
[2020-03-20 13:16] LABS: Alanine Aminotransferase 30 U/L (12-78); Alkaline Phosphatase 76 U/L (38-126); Aspartate Amino Transferase 31 U/L (17-59); Bilirubin,Direct 0.2 mg/dl (0.0-0.4); Bilirubin,Indirect 0.8 mg/dL (0.0-0.9); Bilirubin,Unconjugated 0.8 mg/dL (0.0-1.1)
[2020-03-20 13:17] LABS: Anion Gap 10.9 mEq/L (5-15); Blood Urea Nitrogen 14 mg/dl (9-20); Carbon Dioxide 31 mmol/L (22.0-30.0); Estimated Glomerular Filt Rate 75 ml/min (>60); GFR (African American) 91 ML/MIN (>60)
[2020-03-20 13:17] LABS: Albumin Level 4.1 g/dl (3.5-5.0); Chol/HDL Ratio 4.6 (1-3.5); Cholesterol 133 mg/dl (140-200); HDL Cholesterol 29 mg/dl (40-60); Total Protein,Serum 6.2 g/dl (6.3-8.2); Triglycerides 143 mg/dl (30-150); VLDL Cholesterol 29 mg/dL (0-40)
[2020-03-20 13:18] LABS: Calcium 9.1 mg/dl (8.4-10.2); Glucose 98 mg/dl (74-100)
[2020-03-20 13:28] LABS: Direct LDL Cholesterol 79.39 mg/dL (100-129)
== END ==
PROVIDERS: Nurse Practitioner Family; Specialist; Visit Provider Internal Medicine Cardiovascular Disease
DX: I20.0 Unstable angina (principal); I50.33 Acute on chronic diastolic (congestive) heart failure; I25.10 Atherosclerotic heart disease of native coronary artery without angina pectoris; I11.9 Hypertensive heart disease without heart failure; E78.2 Mixed hyperlipidemia; R73.9 Hyperglycemia, unspecified; Z95.5 Presence of coronary angioplasty implant and graft
CPT/HCPCS: 36415; 80048; 80061; 80076; 83036; 85025; 86328; 93306

== ENCOUNTER 2020-03-21 09:22 | Day surgery (SDC) | payer BC, SELFPAY ==
[2020-03-21] VITALS (11 sets, daily range): BP systolic 91–177; BP diastolic 53–93; PULSE 50–63; RESP 16; TEMP 36.8; O2SAT 92–98; BMI 29.9
--- NOTE | 2020-03-21 07:22 | IR_ITS ---
APPROVED REPORT Patient Location: Outpatient PROCEDURES Left heart catheterization Left ventriculogram Selective coronary angiogram INDICATION Coronary disease, Recurrent angina pectoris Informed consent was obtained prior to the procedure. COMPLICATIONS NONE Estimated Blood Loss: LESS THAN 10 ML TECHNIQUE One percent lidocaine used to anesthetize the right anterior aspect of the wrist. The right radial artery was accessed via the Seldinger technique. A 6 Algerian sheath was placed in the right radial artery. 2.5 mg of verapamil, 800 mcg of nitroglycerin, 1mg Lidocaine and 5000 U Heparin were given through the arterial sheath. The Venessa catheter and 6 Algerian JL 3 catheter were also used to perform left heart catheterization, left ventriculogram and selective coronary angiogram. At the end of the procedure the sheath was removed good hemostasis was achieved using Traclet band, patient was transferred to the postop holding area in stable condition. ANGIOGRAPHIC RESULTS The left main artery Is a mid vessel hazy stenosis suggestive greater than 50% with a distal eccentric 50% stenosis The left anterior descending artery Has an ostial 50% stenosis followed by a proximal stent which is widely patent with minimal in-stent restenosis followed by a mid vessel 70 to 80% stenosis The circumflex artery Is non-dominant vessel and has a mid vessel 40 followed by 50% stenosis followed by a stent which has a distal 50 to 60% stenosis The right coronary artery Is dominant and has a proximal 20% stenosis followed by a stent which is widely patent with minimal in-stent restenosis followed by additional distal 30 and 40% stenosis The BRANDT ventriculogram reveals Normal 65% The left ventricular end-diastolic pressure 20 mmHg IMPRESSION Significant left main disease as described above Moderate ostial left anterior descending artery disease followed by severe mid LAD disease Moderate disease in a large nondominant circumflex artery Normal ejection fraction Mildly elevated LVEDP PLAN 1. I recommend patient be considered for surgical evaluation. He will be referred to Dr. Christianson at [facility] 2. Continue with risk factor modification with goal LDL less than 55 Electronically signed by : Oscar Tirado, 03/21/2020 10:47:55
== END 2020-03-21 14:10 | disposition home or self-care (01) ==
LOC: CATHLAB 09:24
PROVIDERS: PCP Family Medicine; Visit Provider Internal Medicine
DX: I25.110 Atherosclerotic heart disease of native coronary artery with unstable angina pectoris (principal); E78.2 Mixed hyperlipidemia; G47.33 Obstructive sleep apnea (adult) (pediatric); I11.0 Hypertensive heart disease with heart failure; I50.30 Unspecified diastolic (congestive) heart failure; K21.9 Gastro-esophageal reflux disease without esophagitis; Z95.5 Presence of coronary angioplasty implant and graft; Z79.01 Long term (current) use of anticoagulants; Z79.899 Other long term (current) drug therapy
CPT/HCPCS: 93458; 99152; C1725; C1760; C1769; J1644; Q9967

== ENCOUNTER → 2020-03-24 14:09 | Outpatient (CLI) | payer BC, SELFPAY ==
[2020-03-24 15:40] LABS: Chloride 102 mmol/L (98-107); Potassium 4.9 mmoL/L (3.5-5.1); Sodium 138 mmol/L (136-145)
[2020-03-24 15:43] LABS: Anion Gap 12.9 mEq/L (5-15); Blood Urea Nitrogen 15 mg/dl (9-20); Calcium 8.9 mg/dl (8.4-10.2); Carbon Dioxide 28 mmol/L (22.0-30.0); Creatine Kinase 39 U/L (55-170); Estimated Glomerular Filt Rate 51 ml/min (>60); GFR (African American) 62 ML/MIN (>60); Glucose 118 mg/dl (74-100)
== END ==
PROVIDERS: Visit Provider Physician Assistant
DX: R06.00 Dyspnea, unspecified (principal); I20.0 Unstable angina; R00.1 Bradycardia, unspecified; E78.5 Hyperlipidemia, unspecified; I11.9 Hypertensive heart disease without heart failure; K21.9 Gastro-esophageal reflux disease without esophagitis; M79.604 Pain in right leg; M79.605 Pain in left leg; G47.33 Obstructive sleep apnea (adult) (pediatric); Z95.5 Presence of coronary angioplasty implant and graft
CPT/HCPCS: 36415; 80048; 82550

== ENCOUNTER 2020-05-20 09:30 | Outpatient (RCR) | payer BC, SELFPAY | END 2020-08-06 13:53 | disposition home or self-care (01) | LOC: PT 09:30 | PROVIDERS: Visit Provider Thoracic Surgery (Cardiothoracic Vascular Surgery) | DX: I25.810 Atherosclerosis of coronary artery bypass graft(s) without angina pectoris (principal) | CPT/HCPCS: 93798 ==

== ENCOUNTER → 2020-07-01 12:56 | Outpatient (CLI) | payer BC, SELFPAY ==
--- NOTE | 2020-07-01 12:57 | CA_ITS ---
APPROVED REPORT EXAM: Comprehensive 2D, Doppler, and color-flow Echocardiogram Field Support Rep: Lulu Joyner RT(R) Ht: 5 ft 11 in Wt: 213lbs BSA: 2.17 BP: 124/74 mmHg Indications: ex smoker, HTN, SOB, GALLARDO, hyperlipidemia, stent, CABG, DD, CAD 2D Dimensions LVOT 2.19 cm (M/F) 1.5-2.5 M-Mode Dimensions RVDd 2.53 cm (0.9-2.6) LA Diam 2.90 cm (1.9-4.0) LVDd 5.22 cm (3.5-5.7) Ao Diam 3.62 cm (2.0-3.7) LVDs 4.39 cm (3.5-5.7) IVSd 1.29 cm (0.6-1.1) PWd 1.02 cm (0.6-1.1) EF (Teich) 33.30% FS 15.90% EDV (Teich) 130.70 mL ESV (Teich) 87.20 mL LV Diastology E Decel Time 253.00 (160-240 msec) E/A Ratio 0.8 MED E' 7.70 (< 7 cm/sec) E'/MED E' Ratio 10.87 (>14) LAT E' 9.70 (<10 cm/sec) E/LAT E' Ratio 8.63 (>14) Mitral Valve MV E Max Markell. 84.00 (40-130 cm/s) MV A Velocity 107.00 (40-130 cm/s) E/A Ratio 0.79 MV Decel. Time 253.00 (160-240 ms) MV PHT 74.00 ms Tricuspid Valve TR P. Velocity 262.00 cm/s RAP Estimate 10.00 mmHg RVSP 37.40 mmHg Left Ventricle Left atrium is mildly enlarged, left ventricle is normal size, mild concentric left ventricular hypertrophy, visually estimated ejection fraction 55% with no regional wall motion abnormality, grade 1 diastolic dysfunction seen without tissue Doppler evidence of raise left atrial pressure. Right Ventricle Right atrium and right ventricle are normal size and contractility. Aortic Valve Aortic valve is thickened and calcified without aortic stenosis or aortic insufficiency. Mitral Valve Mitral valve is grossly normal, there is mild mitral regurgitation. Tricuspid Valve Tricuspid valve grossly normal, there is mild tricuspid regurgitation, tricuspid regurgitation jet velocity is inadequate for calculation of the right ventricular systolic pressure. Pulmonic Valve Pulmonic valve is poorly visualized. Great Vessels Aortic root is normal size. Pericardium No significant pericardial effusion noted. Conclusion 1. Mildly enlarged left atrium, normal left ventricular size, mild concentric left ventricular hypertrophy, visually estimated ejection fraction 55% with no regional wall motion abnormality, grade 1 diastolic dysfunction seen without tissue Doppler evidence of raise left atrial pressure. 2. Thickened and calcified aortic valve without aortic stenosis or aortic insufficiency. 3. Mild mitral and tricuspid regurgitation. 4. No significant pericardial effusion noted. Electronically signed by : Valeriano Barrera, 07/01/2020 20:38:04
== END ==
PROVIDERS: PCP Family Medicine; Visit Provider Internal Medicine
DX: R06.00 Dyspnea, unspecified (principal); R94.31 Abnormal electrocardiogram [ECG] [EKG]; I25.10 Atherosclerotic heart disease of native coronary artery without angina pectoris; I11.9 Hypertensive heart disease without heart failure; E78.2 Mixed hyperlipidemia; Z95.1 Presence of aortocoronary bypass graft; Z95.5 Presence of coronary angioplasty implant and graft
CPT/HCPCS: 93306

== ENCOUNTER → 2020-12-02 14:21 | Outpatient (CLI) | payer BC, SELFPAY ==
[2020-12-02 14:45] LABS: Basophils % 0.9 % (0.1-2.0); Eosinophils # 0.2 K/mm3 (0.0-0.4); Eosinophils % 3.6 % (0.1-12.0); Hematocrit 43.9 % (42.0-52.0); Hemoglobin 15.1 g/dL (14.1-18.0); Lymphocytes # 1.8 K/mm3 (0.7-4.5); Lymphocytes % 35.3 % (10-50); Mean Corpuscular HGB Conc 34.4 g/dL (31.8-35.4); Mean Corpuscular Hemoglobin 30.4 pg (27.0-31.2); Mean Corpuscular Volume 88.5 fl (80-94); Mean Platelet Volume 8.1 fl (7.4-10.4); Monocytes # 0.4 K/mm3 (0.1-1.0); Monocytes % 7.5 % (1.7-9.3); Neutrophils # 2.7 K/mm3 (1.8-7.8); Neutrophils % 52.7 % (37.0-80.0); Platelet Count 164 K/mm3 (142-424); Red Blood Count 4.96 M/mm3 (4.60-6.20); Red Cell Distribution Width 14.1 % (11.5-17.5)
[2020-12-02 16:03] LABS: Anion Gap 13.5 mEq/L (5-15); Blood Urea Nitrogen 11 mg/dl (9-20); Calcium 9.2 mg/dl (8.4-10.2); Carbon Dioxide 28 mmol/L (22.0-30.0); Chloride 105 mmol/L (98-107); Estimated Glomerular Filt Rate 75 ml/min (>60); GFR (African American) 91 ML/MIN (>60); Glucose 116 mg/dl (74-100); Potassium 4.5 mmoL/L (3.5-5.1); Sodium 142 mmol/L (136-145)
[2020-12-02 16:48] LABS: Troponin I < 0.01 ng/ml (0.00-0.034)
== END ==
PROVIDERS: Visit Provider Urology
DX: Z01.818 Encounter for other preprocedural examination (principal); Z11.52 Encounter for screening for COVID-19; I11.9 Hypertensive heart disease without heart failure; R06.00 Dyspnea, unspecified; I25.10 Atherosclerotic heart disease of native coronary artery without angina pectoris; E78.5 Hyperlipidemia, unspecified; Z95.1 Presence of aortocoronary bypass graft; Z95.5 Presence of coronary angioplasty implant and graft
CPT/HCPCS: 36415; 80048; 84484; 85025; U0003

== ENCOUNTER 2020-12-03 11:14 | Day surgery (SDC) | payer BC, SELFPAY ==
[2020-12-03] VITALS (9 sets, daily range): BP systolic 121–140; BP diastolic 74–85; PULSE 49–59; RESP 17–19; TEMP 36.6; O2SAT 96–99; BMI 29.9
--- NOTE | 2020-12-03 08:12 | IR_ITS ---
APPROVED REPORT Patient Location: Outpatient PROCEDURES Left heart catheterization Left ventriculogram Selective coronary angiogram Selective engage left internal mammary artery which then had a T graft supplying the first diagonal artery and then skipping over to the obtuse marginal artery INDICATION Accelerated angina pectoris, Coronary disease, History of coronary bypass surgery, Informed consent was obtained prior to the procedure. COMPLICATIONS NONE Estimated Blood Loss: LESS THAN 10ML TECHNIQUE One percent lidocaine used to anesthetize the right groin. The right femoral artery was accessed via the Seldinger technique and a 5 Filipino sheath was placed in the right femoral artery. A JL 4, JR4 catheter were used to perform left heart catheterization, left ventriculogram selective coronary angiography as well as selective engagement of the left internal mammary artery which then had a T graft which then skipped over to the first diagonal artery and then obtuse marginal artery ANGIOGRAPHIC RESULTS The left main artery Normal The left anterior descending artery Has long mid vessel 70 to 80% stenosis with competitive flow from the left internal mammary artery distally. First diagonal artery has an ostial 50 to 60% stenosis with evidence of competitive flow from the T graft off the BOONE graft The circumflex artery Is nondominant and has mid vessel 40% stenosis. There is very scant competitive flow from a nearly physiologically occluded graft originating from the first diagonal artery skipping to the obtuse marginal artery. The right coronary artery Is a dominant vessel has proximal 20 to 30% stenosis mid vessel 20% stenosis distal 20% stenosis The BRANDT ventriculogram reveals Normal 65% The left ventricular end-diastolic pressure 10 mmHg Left internal mammary artery is widely patent to the mid to distal LAD AT graft originates from the distal BOONE graft and then makes anastomosis onto a small to medium sized first diagonal artery. The graft skipping from the diagonal artery to the obtuse marginal artery is anatomically and scantly patent as visualized during antegrade angiography of the viejas circumflex artery however this graft appears to be physiologically occluded and unlikely to be functional IMPRESSION Coronary disease as described above Normal ejection fraction Normal left ventricular and SI pressure PLAN 1. Maximize antianginal medications Electronically signed by : Oscar Tirado, 12/03/2020 13:40:01
--- NOTE | 2020-12-03 11:26 | CA_ITS ---
APPROVED REPORT EXAM: Comprehensive 2D, Doppler, and color-flow Echocardiogram Staff Editor: Lulu Joyner RT(R) Ht: 5 ft 11 in Wt: 217lbs BSA: 2.18 BP: 127/71 mmHg Indications: CAD, CP, HTN, SOB, ex smoker, hx CABG, DD, hyperlipidemia, GALLARDO 2D Dimensions LVOT 2.19 cm (M/F) 1.5-2.5 LVEF (Titus's) 53.30 % M: 52 - 72 LV Volume 122.80 mL M: 62 - 150 LV Volume Index 56.33 mL/m2 M: 34 - 74 LA Volume 24.60 mL LA Volume Index 11.28 mL/m2 (M/F) 16-34 M-Mode Dimensions RVDd 2.58 cm (0.9-2.6) LA Diam 4.12 cm (1.9-4.0) LVDd 5.06 cm (3.5-5.7) Ao Diam 2.67 cm (2.0-3.7) LVDs 3.84 cm (3.5-5.7) IVSd 0.84 cm (0.6-1.1) PWd 0.91 cm (0.6-1.1) EF (Teich) 47.80% FS 24.10% EDV (Teich) 121.60 mL ESV (Teich) 63.50 mL LV Diastology E Decel Time 177.00 (160-240 msec) E/A Ratio 1.1 MED E' 12.10 (< 7 cm/sec) E'/MED E' Ratio 7.99 (>14) LAT E' 11.10 (<10 cm/sec) E/LAT E' Ratio 8.71 (>14) Mitral Valve MV E Max Markell. 97.00 (40-130 cm/s) MV A Velocity 85.00 (40-130 cm/s) E/A Ratio 1.14 MV Decel. Time 177.00 (160-240 ms) MV PHT 52.00 ms Tricuspid Valve TR P. Velocity 226.00 cm/s RAP Estimate 10.00 mmHg RVSP 30.40 mmHg Left Ventricle Technically difficult study because of the patient factors and poor acoustic windows. Left atrium is mildly enlarged, left ventricle is normal size, mild concentric left ventricular hypertrophy, visually estimated ejection fraction 50% with no regional wall motion abnormality, diastolic parameters are inconclusive. Right Ventricle Right atrium and right ventricle mildly enlarged with normal contractility. Aortic Valve Aortic valve is minimally thickened and fibrosed, there is no aortic stenosis or aortic insufficiency. Mitral Valve Mitral valve grossly normal, there is trace mitral regurgitation. Tricuspid Valve Tricuspid grossly normal, there is trace tricuspid regurgitation, tricuspid regurgitation jet velocity is inadequate for calculation of the right ventricular systolic pressure. Pulmonic Valve Pulmonic valve is poorly visualized. Great Vessels Aortic root is normal size. Pericardium No significant pericardial effusion noted. Conclusion 1. Mild biatrial normal, normal left ventricular size, mild concentric left ventricular hypertrophy, visually estimated ejection fraction 50% with no regional wall motion abnormality, diastolic parameters are inconclusive . 2. Mildly enlarged right ventricle with normal contractility. 3. Trace mitral and tricuspid regurgitation. 4. No significant pericardial effusion noted. Electronically signed by : Valeriano Barrera, 12/04/2020 17:03:31
== END 2020-12-03 16:11 | disposition home or self-care (01) ==
LOC: CATHLAB 11:16
PROVIDERS: PCP Family Medicine; Visit Provider Internal Medicine
DX: I25.118 Atherosclerotic heart disease of native coronary artery with other forms of angina pectoris (principal); E78.5 Hyperlipidemia, unspecified; I11.9 Hypertensive heart disease without heart failure; R06.00 Dyspnea, unspecified; Z95.1 Presence of aortocoronary bypass graft; Z95.5 Presence of coronary angioplasty implant and graft; Z79.899 Other long term (current) drug therapy
CPT/HCPCS: 93306; 93459; 99152; C1725; C1769; C1894; J1644; Q9967

== ENCOUNTER → 2021-03-16 13:49 | Outpatient (CLI) | payer BC, SELFPAY | PROVIDERS: PCP Family Medicine; Visit Provider Nurse Practitioner | DX: Z20.822 Contact with and (suspected) exposure to COVID-19 (principal) | CPT/HCPCS: C9803; U0003; U0005 ==

== ENCOUNTER → 2021-05-09 15:17 | Outpatient (CLI) | payer BC, SELFPAY | PROVIDERS: PCP Family Medicine; Visit Provider Nurse Practitioner Family | DX: U07.1 COVID-19 (principal) | CPT/HCPCS: C9803; U0003; U0005 ==

== ENCOUNTER 2021-05-15 22:16 | Emergency (ER) | payer BC, SELFPAY ==
[2021-05-15 22:17] VITALS: BP 122/84; PULSE 62; RESP 18; TEMP 37.2; O2SAT 98; BMI 30.1
--- NOTE | 2021-05-15 22:31 | ECG_ITS ---
APPROVED REPORT Exam: Resting ECG HR:65 bpm ECG Measurements Heart Rate 65 AXES WI 122 P 73 QRSd 86 QRS -19 QT 430 T 24 QTc 447 Conclusion Normal sinus rhythm RSR' or QR pattern in V1 suggests right ventricular conduction delay Borderline ECG Electronically signed by : Jose Masterson MD 05/16/2021 08:32:33
[2021-05-15 22:47] VITALS: BMI 24.1
--- NOTE | 2021-05-15 22:51 | XR_ITS ---
PROCEDURE INFORMATION: Exam: XR Chest Exam date and time: 05/15/2021 10:51 PM Age: 66 years old Clinical indication: Shortness of breath; Additional info: SOA, covid + TECHNIQUE: Imaging protocol: XR of the chest. Views: 2 views. COMPARISON: CR CXR2V XR chest 2V 01/04/2018 4:47 PM FINDINGS: Tubes, catheters and devices: Multiple sternal cerclage wires overlie the sternum. Lungs: Multifocal peripheral parenchymal opacities without large consolidation or pleural effusion. Pleural spaces: See Lungs finding. Heart/Mediastinum: Unremarkable. No cardiomegaly. Bones/joints: Unremarkable. IMPRESSION: Multifocal peripheral parenchymal opacities without large consolidation or pleural effusion.
[2021-05-15 22:52] VITALS: BP 122/84; PULSE 84; RESP 18; TEMP 36.7; O2SAT 97
--- NOTE | 2021-05-15 22:53 | CT_ITS ---
PROCEDURE INFORMATION: Exam: CTA Chest With Contrast Exam date and time: 05/15/2021 10:53 PM Age: 66 years old Clinical indication: Shortness of breath and other: Covid; Prior surgery; Surgery date: 6+ months; Surgery type: Cardiac stent. Open heart surgery; Additional info: SOA, covid+ TECHNIQUE: Imaging protocol: Computed tomographic angiography of the chest with contrast. 3D rendering (Not supervised by radiologist): MIP and/or 3D reconstructed images were created by the technologist. Radiation optimization: All CT scans at this facility use at least one of these dose optimization techniques: automated exposure control; mA and/or kV adjustment per patient size (includes targeted exams where dose is matched to clinical indication); or iterative reconstruction. Contrast material: ISOVUE 370; Contrast volume: 70 ml; Contrast route: INTRAVENOUS (IV); COMPARISON: CR XR CHEST 2V 05/15/2021 10:51 PM FINDINGS: Pulmonary arteries: Normal. No pulmonary emboli. Aorta: Unremarkable. No aortic aneurysm. No aortic dissection. Lungs: Patchy peripheral subpleural predominant ground-glass and linear opacities are correlate with known viral infection. Pleural spaces: Unremarkable. No pneumothorax. No pleural effusion. Heart: Postsurgical changes compatible with CABG procedure. Lymph nodes: Prominent mediastinal and hilar lymph nodes are likely reactive. Bones/joints: Unremarkable. No acute fracture. Soft tissues: Unremarkable. IMPRESSION: Patchy peripheral subpleural predominant ground-glass and linear opacities are correlate with known viral infection. No CT angiography evidence of pulmonary embolism.
[2021-05-15 22:57] LABS: Basophils % 0.5 % (0.1-2.0); Eosinophils # 0.1 K/mm3 (0.0-0.4); Eosinophils % 2.7 % (0.1-12.0); Hematocrit 42.5 % (42.0-52.0); Hemoglobin 14.7 g/dL (14.1-18.0); Lymphocytes # 1.4 K/mm3 (0.7-4.5); Lymphocytes % 35.7 % (10-50); Mean Corpuscular HGB Conc 34.5 g/dL (31.8-35.4); Mean Corpuscular Hemoglobin 30.9 pg (27.0-31.2); Mean Corpuscular Volume 89.5 fl (80-94); Mean Platelet Volume 8.2 fl (7.4-10.4); Monocytes # 0.3 K/mm3 (0.1-1.0); Monocytes % 6.7 % (1.7-9.3); Neutrophils # 2.1 K/mm3 (1.8-7.8); Neutrophils % 54.3 % (37.0-80.0); Platelet Count 160 K/mm3 (142-424); Red Blood Count 4.75 M/mm3 (4.60-6.20); Red Cell Distribution Width 13.6 % (11.5-17.5); White Blood Count 3.8 K/mm3 (4.8-10.8)
[2021-05-15 22:59] LABS: Chloride 106 mmol/L (98-107); Potassium 3.7 mmoL/L (3.5-5.1); Sodium 141 mmol/L (136-145)
[2021-05-15 23:02] LABS: Alanine Aminotransferase 40 U/L (12-78); Albumin Level 3.9 g/dl (3.5-5.0); Albumin/Globulin Ratio 1.3 (1.1-1.8); Alkaline Phosphatase 84 U/L (38-126); Anion Gap 11.7 mEq/L (5-15); Aspartate Amino Transferase 72 U/L (17-59); Bilirubin,Total 0.6 mg/dl (0.2-1.3); Blood Urea Nitrogen 11 mg/dl (9-20); Carbon Dioxide 27 mmol/L (22.0-30.0); Creatinine Clearance Estimated 84 mL/min (50-200); Estimated Glomerular Filt Rate 113 ml/min (>60); GFR (African American) 137 ML/MIN (>60); Total Protein,Serum 6.9 g/dl (6.3-8.2)
[2021-05-15 23:03] LABS: Glucose 115 mg/dl (74-100)
[2021-05-15 23:08] LABS: C-Reactive Protein 5.1 mg/L (0-4)
--- NOTE | 2021-05-15 23:12 | HMH.EDSOB ---
ED Disposition Clinical Impression: COVID-19 Disposition: Home, Self-Care Condition on Discharge: Good Instructions: DI for COVID-19 (Suspected or Confirmed ) Additional Instructions: fluids and use meds and call pcp in am Prescriptions: dexAMETHasone [Decadron] 6 mg PO DAILY #6 tab Transmission Status: Pending to [facility] ondansetron HCL [Zofran 4mg Tab] 4 mg PO TID #21 tab Transmission Status: Pending to [facility] Referrals: Kvng Mae MD [Primary Care Provider] - - Critical Care Critical Care Time: No Attestation: On 05/15/21, the high probability of a clinically significant, sudden or life threatening deterioration of the following system(s) required my full and direct attention, intervention and personal management. The time I documented below is in addition to time spent performing reported procedures but includes the following listed in this critical care notation. Medical Decision Making - Medical Records Medical records reviewed: Yes: I reviewed the patient's medical records. - Baljit Inquiry Pt receiving controlled substance: No Vital Signs: 05/15/21 22:17 05/15/21 22:52 Temperature 98.9 F 98.1 F Temperature Source Oral Oral Pulse Rate 84 Pulse Rate [Apical] 62 Respiratory Rate 18 18 Blood Pressure 122/84 Blood Pressure [Right Arm] 122/84 Blood Pressure Mean [Right Arm] 96 Blood Pressure Source Automatic Cuff Blood Pressure Source [Right Arm] Automatic Cuff Blood Pressure Position Sitting Blood Pressure Position [Right Arm] Sitting 02 Sat by Pulse Oximetry 98 97 Oxygen Delivery Method Room Air Room Air - Lab Data Lab results reviewed: Yes: I reviewed the patient's lab results. Lab Results 05/15/21 22:41: WBC 3.8 L, RBC 4.75, Hgb 14.7, Hct 42.5, MCV 89.5, MCH 30.9, MCHC 34.5, RDW 13.6, Plt Count 160, MPV 8.2, Neut % (Auto) 54.3, Lymph % (Auto) 35.7, [place] % (Auto) 6.7, Eos % (Auto) 2.7, Baso % (Auto) 0.5, Neut # (Auto) 2.1, Lymph # (Auto) 1.4, [place] # (Auto) 0.3, Eos # (Auto) 0.1, Baso # (Auto) 0.0, ESR 26 H 05/15/21 22:41: Sodium 141, Potassium 3.7, Chloride 106, Carbon Dioxide 27, Anion Gap 11.7, BUN 11, Creatinine 0.70, Estimated Creat Clear 84, Estimated GFR 113, Est GFR ( Amer) 137, Glucose 115 H, Calcium 9.0, Total Bilirubin 0.6, AST 72 H, ALT 40, Alkaline Phosphatase 84, Troponin I < 0.01, C-Reactive Protein 5.1 H, Total Protein 6.9, Albumin 3.9, Globulin 3.0, Albumin/Globulin Ratio 1.3, Procalcitonin 0.061 05/15/21 22:41: Lactate 1.0 Result diagrams: 05/15/21 22:41 05/15/21 22:41 Orders (Tests/Meds): ED MEDICATIONS Generic Name Dose Route Start Last Admin Trade Name Freq PRN Reason Stop Dose Admin Sodium Chloride 1,000 mls @ 999 mls/hr 05/15/21 23:00 05/15/21 22:58 Sod Chlor 0.9% 1000ml Bag IV 05/16/21 00:00 999 mls/hr .Q1H1M KELSIE Administration Discontinued Medications Generic Name Dose Route Start Last Admin Trade Name Freq PRN Reason Stop Dose Admin Iopamidol 70 ml 05/15/21 23:35 05/15/21 23:36 Iopamidol-370 (76%);100ml Bottle IV 05/15/21 23:36 70 ml ONCE ONE Administration Sodium Chloride 40 ml 05/15/21 23:35 05/15/21 23:36 0.9 % Sodium Chloride 50 Ml Vial IV 05/15/21 23:36 40 ml ONCE ONE Administration Sodium Chloride 10 ml 05/15/21 23:35 05/15/21 23:36 Sodium Chloride 0.9% 10ml Syr (Rad Only) IV 05/15/21 23:36 10 ml ONCE ONE Administration ORDERS Category Date Time Status Troponin I Q3H Lab 05/16/21 02:00 Ordered Troponin I Q3H Lab 05/16/21 05:00 Ordered ECG Request by /Nse Stat Y 05/15/21 22:50 Ordered - Radiology Data #1 Image(s): Chest Image Reviewed: Yes I have reviewed radiologist's interpretation Preliminary Findings: Normal/NAD - CT Data CT Scan: Chest Time Received: 00:[address] Reviewed: Yes: I have viewed the radiologist's interpretation Preliminary Findings: Normal/NAD, Abnormal (no pul emboli) - ECG Data Tracing #1
[2021-05-15 23:17] LABS: Troponin I < 0.01 ng/ml (0.00-0.034)
[2021-05-15 23:24] LABS: Erythrocyte Sedimentation Rate 26 mm/hr (0-20)
[2021-05-15 23:26] LABS: Procalcitonin 0.061 ng/mL (0.0-2.0)
[2021-05-16] VITALS: BP 142/88; PULSE 60; RESP 14; O2SAT 98
[2021-05-16 00:18] VITALS: BP 140/88; PULSE 85; RESP 19; TEMP 36.8; O2SAT 98
== END 2021-05-16 00:36 | disposition home or self-care (01) ==
PROVIDERS: Emergency Provider Emergency Medicine; PCP Family Medicine
DX: U07.1 COVID-19 (principal); R42 Dizziness and giddiness; E78.5 Hyperlipidemia, unspecified
CPT/HCPCS: 71046; 71275; 80053; 83605; 84145; 84484; 85025; 85651; 86140; 93005; 96365; 96375; 99283; J2405; Q9967

== ENCOUNTER 2021-09-30 13:18 | Emergency (ER) | payer BC, SELFPAY ==
--- NOTE | 2021-09-30 13:18 | ECG_ITS ---
APPROVED REPORT Exam: Resting ECG HR:53 bpm ECG Measurements Heart Rate 53 AXES ME 117 P 26 QRSd 96 QRS -11 QT 401 T 40 QTc 384 Conclusion SINUS BRADYCARDIA WITH SHORT ME INTERVAL POSSIBLE LEFT ATRIAL ENLARGEMENT [-0.1mV P-WAVE IN V1/V2] POSSIBLE RIGHT VENTRICULAR CONDUCTION DELAY [RSR (QR) IN V1/V2] BORDERLINE ECG UNCONFIRMED REPORT Electronically signed by : Jose Masterson MD 10/01/2021 08:01:36
[2021-09-30 13:28] VITALS: BMI 28.7
--- NOTE | 2021-09-30 13:29 | XR_ITS ---
FINAL REPORT TECHNIQUE: Chest PA & Lateral CLINICAL HISTORY: chest pain, left arm pain COMPARISON: May 15, 2021 FINDINGS: 2 views of the chest were performed. The heart size is normal. There are multiple sternotomy wires. The mediastinum is within normal limits. The lungs are underinflated but clear. There are no pleural effusions. There is no pneumothorax. The bony thorax appears intact. IMPRESSION: No acute cardiopulmonary process. Reviewed, Interpreted and Dictated by Guy May MD Transcribed by Lazaro Loya Authenticated by Guy May MD on 09/30/2021 03:28:02 PM [facility]
--- NOTE | 2021-09-30 13:30 | HMH.EDGENADL ---
ED Disposition Clinical Impression: Cervical radiculopathy Disposition: Home, Self-Care Condition on Discharge: Good Instructions: DI for Cervical Radiculopathy Additional Instructions: Prednisone as prescribed. Blue Bell as needed for pain. Follow-up with primary care provider, call tomorrow to make appointment. Prescriptions: Hydrocod/Acet 5/325 mg [Blue Bell 5/325mg tablet] 1 tab PO Q6HP PRN #10 tab PRN Reason: Pain Transmission Status: Received by [facility] predniSONE [Prednisone 20mg Tab] 20 mg PO BID #10 tab Transmission Status: Received by [facility] Referrals: Provider,Referral, [Referring] - - Critical Care Critical Care Time: No Attestation: On , the high probability of a clinically significant, sudden or life threatening deterioration of the following system(s) required my full and direct attention, intervention and personal management. The time I documented below is in addition to time spent performing reported procedures but includes the following listed in this critical care notation. Medical Decision Making - Baljit Inquiry Pt receiving controlled substance: Yes Baljit was queried for this patient: Yes Risks and benefits of using a controlled substance: were discussed with pt by me Vital Signs: 09/30/21 13:46 09/30/21 15:56 Temperature 98.5 F 98.2 F Temperature Source Oral Oral Pulse Rate 70 Pulse Rate [Left Radial] 56 L Respiratory Rate 17 16 Blood Pressure 164/70 H Blood Pressure [Right Arm] 176/93 H Blood Pressure Mean [Right Arm] 120 Blood Pressure Source Automatic Cuff Blood Pressure Position Sitting 02 Sat by Pulse Oximetry 97 Oxygen Delivery Method Room Air Room Air - Lab Data Lab Results 09/30/21 13:33: WBC 5.1, RBC 5.01, Hgb 15.2, Hct 44.8, MCV 89.3, MCH 30.3, MCHC 33.9, RDW 13.8, Plt Count 196, MPV 7.9, Neut % (Auto) 56.6, Lymph % (Auto) 30.3, Meeker % (Auto) 8.7, Eos % (Auto) 3.5, Baso % (Auto) 0.8, Neut # (Auto) 2.9, Lymph # (Auto) 1.6, Meeker # (Auto) 0.5, Eos # (Auto) 0.2, Baso # (Auto) 0.0 04/27/22 13:33: Sodium 135 L, Potassium 4.5, Chloride 103, Carbon Dioxide 28, Anion Gap 8.5, BUN 13, Creatinine 0.90, Estimated Creat Clear 94, Estimated GFR 85, Est GFR ( Amer) 102, Glucose 109 H, Calcium 8.9, Troponin I < 0.01 Result diagrams: 09/30/21 13:33 09/30/21 13:33 Orders (Tests/Meds): ED MEDICATIONS Discontinued Medications Generic Name Dose Route Start Last Admin Trade Name Freq PRN Reason Stop Dose Admin Dexamethasone Sodium Phosphate 10 mg 09/30/21 13:59 Dexamethasone 4mg/Ml 1ml Vial IV 09/30/21 14:00 ONCE ONE Morphine Sulfate 4 mg 09/30/21 13:59 Morphine 4mg/Ml Syringe IV 09/30/21 14:00 ONCE ONE Ondansetron HCl 4 mg 09/30/21 13:59 Ondansetron 4mg/2ml Vial IV 09/30/21 14:00 ONCE ONE Sodium Chloride 10 ml 09/30/21 13:29 Sodium Chloride 0.9% 10ml Flush Syringe IV 10/30/21 13:28 NEEDED PRN Maintain IV Site - Radiology Data #1 Image(s): Chest, C-Spine Image Reviewed: Yes I reviewed the patient's radiology image, Yes I have reviewed radiologist's interpretation Preliminary Findings: Abnormal Chest x-ray shows previous sternotomy, no acute process to my interpretation. Cervical spine x-ray shows degenerative disc changes with narrowing of the disc space at C5-6 with osteophytes at this level to my interpretation. Procedure(s): XR cervical spine 3V Accession Number(s): [id number] cc: Guy May MD; Kvng Mae MD~ FINAL REPORT CLINICAL HISTORY: cervical radiculopathy, left arm pain FINDINGS: CERVICAL SPINE 3 views were obtained. There is no acute fracture. There is no malalignment. There is moderate disc space narrowing at C5-6 and C6-7. There are small anterior and posterior osteophytes at C5-6. There is no soft tissue abnormality. IMPRESSION: Hypertrophic changes of degenerative disc disease of C5-6. Reviewe
[2021-09-30 13:45] LABS: Basophils % 0.8 % (0.1-2.0); Eosinophils # 0.2 K/mm3 (0.0-0.4); Eosinophils % 3.5 % (0.1-12.0); Hematocrit 44.8 % (42.0-52.0); Hemoglobin 15.2 g/dL (14.1-18.0); Lymphocytes # 1.6 K/mm3 (0.7-4.5); Lymphocytes % 30.3 % (10-50); Mean Corpuscular HGB Conc 33.9 g/dL (31.8-35.4); Mean Corpuscular Hemoglobin 30.3 pg (27.0-31.2); Mean Corpuscular Volume 89.3 fl (80-94); Mean Platelet Volume 7.9 fl (7.4-10.4); Monocytes # 0.5 K/mm3 (0.1-1.0); Monocytes % 8.7 % (1.7-9.3); Neutrophils # 2.9 K/mm3 (1.8-7.8); Neutrophils % 56.6 % (37.0-80.0); Platelet Count 196 K/mm3 (142-424); Red Blood Count 5.01 M/mm3 (4.60-6.20); Red Cell Distribution Width 13.8 % (11.5-17.5); White Blood Count 5.1 K/mm3 (4.8-10.8)
[2021-09-30 13:46] VITALS: BP 176/93; PULSE 56; RESP 17; TEMP 36.9; O2SAT 97; BMI 28.7
[2021-09-30 13:46] LABS: Chloride 103 mmol/L (98-107)
[2021-09-30 13:47] LABS: Potassium 4.5 mmoL/L (3.5-5.1); Sodium 135 mmol/L (136-145)
[2021-09-30 13:50] LABS: Anion Gap 8.5 mEq/L (5-15); Blood Urea Nitrogen 13 mg/dl (9-20); Calcium 8.9 mg/dl (8.4-10.2); Carbon Dioxide 28 mmol/L (22.0-30.0); Creatinine Clearance Estimated 94 mL/min (50-200); Estimated Glomerular Filt Rate 85 ml/min (>60); GFR (African American) 102 ML/MIN (>60); Glucose 109 mg/dl (74-100)
--- NOTE | 2021-09-30 14:00 | XR_ITS ---
FINAL REPORT CLINICAL HISTORY: cervical radiculopathy, left arm pain FINDINGS: CERVICAL SPINE 3 views were obtained. There is no acute fracture. There is no malalignment. There is moderate disc space narrowing at C5-6 and C6-7. There are small anterior and posterior osteophytes at C5-6. There is no soft tissue abnormality. IMPRESSION: Hypertrophic changes of degenerative disc disease of C5-6. Reviewed, Interpreted and Dictated by Guy May MD Transcribed by Lazaro Loya Authenticated by Guy May MD on 09/30/2021 03:28:02 PM [facility]
[2021-09-30 14:05] LABS: Troponin I < 0.01 ng/ml (0.00-0.034)
[2021-09-30 15:56] VITALS: BP 164/70; PULSE 70; RESP 16; TEMP 36.8; O2SAT 98
== END 2021-09-30 15:58 | disposition home or self-care (01) ==
PROVIDERS: Emergency Provider Emergency Medicine; PCP Family Medicine
DX: M54.12 Radiculopathy, cervical region (principal); M50.322 Other cervical disc degeneration at C5-C6 level; M43.6 Torticollis; R07.9 Chest pain, unspecified; M79.602 Pain in left arm; R00.1 Bradycardia, unspecified; I11.0 Hypertensive heart disease with heart failure; I50.30 Unspecified diastolic (congestive) heart failure; I45.10 Unspecified right bundle-branch block; K21.9 Gastro-esophageal reflux disease without esophagitis; E78.5 Hyperlipidemia, unspecified; I25.110 Atherosclerotic heart disease of native coronary artery with unstable angina pectoris; Z79.02 Long term (current) use of antithrombotics/antiplatelets; G47.33 Obstructive sleep apnea (adult) (pediatric); Z79.52 Long term (current) use of systemic steroids; Z79.82 Long term (current) use of aspirin; Z79.899 Other long term (current) drug therapy; Z88.8 Allergy status to other drugs, medicaments and biological substances; Z95.5 Presence of coronary angioplasty implant and graft; Z87.891 Personal history of nicotine dependence; Z82.49 Family history of ischemic heart disease and other diseases of the circulatory system; Z83.3 Family history of diabetes mellitus
CPT/HCPCS: 71046; 72040; 80048; 84484; 85025; 93005; 96374; 96375; 99285

== ENCOUNTER → 2021-10-17 09:02 | Outpatient (CLI) | payer BC, MEDICARE, SELFPAY ==
--- NOTE | 2021-10-17 09:04 | MR_ITS ---
FINAL REPORT CLINICAL HISTORY: CHRONIC NECK PAIN, CERVICAL RADICULOPATHY. NKI. FINDINGS: Multiplanar MR imaging of the cervical spine was performed without contrast. On the sagittal T2-weighted images, disc degeneration is seen at multiple levels. There is no evidence of fracture. The vertebral alignment is normal. The cervical spinal cord has an unremarkable appearance without evidence of mass, edema or syrinx. The cervicomedullary junction is normal. C2-3: There is no significant canal stenosis or neural foraminal narrowing. C3-4: There is a disc osteophyte complex. There is a small central disc protrusion which mildly indents the thecal sac. There is mild central canal stenosis with an AP diameter of the thecal sac of 9 mm. There is mild right moderate left neural foraminal narrowing. C4-5: There is a disc osteophyte complex. There is mild central canal stenosis with an AP diameter of the thecal sac of 9 mm. There is moderate bilateral neural foraminal narrowing. C5-6: There is a disc osteophyte complex. There is mild central canal stenosis with an AP diameter of the thecal sac of 8 mm. There is severe bilateral neural foraminal narrowing. C6-7: An annular bulge is present. There is a left foraminal disc protrusion. There is left C7 nerve root impingement. There is mild right and severe left neural foraminal narrowing. C7-T1: There is no significant canal stenosis or neural foraminal narrowing. IMPRESSION: Multilevel degenerative disc disease with areas of central canal stenosis and neural foraminal narrowing. Disc protrusions at C3-4 and C6-7. Reviewed, Interpreted and Dictated by Luis Headley III, MD Transcribed by Lolis Gaspar Authenticated by Luis Headley III, MD on 10/19/2021 07:59:04 AM [facility]
== END ==
LOC: RAD 09:02
PROVIDERS: PCP Family Medicine; Visit Provider Physician Assistant
DX: M54.2 Cervicalgia (principal); M54.12 Radiculopathy, cervical region; R29.898 Other symptoms and signs involving the musculoskeletal system
CPT/HCPCS: 72141; 76376

== ENCOUNTER 2021-11-04 08:00 | Outpatient (RCR) | payer BC, MEDICARE, SELFPAY ==
--- NOTE | 2021-10-29 09:44 | HMH.PTOPEV ---
PT Outpatient Evaluation Rehab PT Outpatient Evaluation Start: 10/29/21 08:51 Freq: Status: Active Protocol: Document 10/29/21 09:27 HAYDEN (Rec: 10/29/21 09:42 HAYDEN [id number]) Electronically Signed By Timothy Davison, PT 10/29/21 09:27 Outpatient Therapy Subjective History Subjective History Patient is a 66 year old male presenting to outpatient PT with reports of acute cervical spine pain with associated LUE radiuclar symptoms to C 4/ 5 dermatome. Most recent imaging indicates multi-level DDD, central canal stenosis and C 3/4 C 6/7 bulging discs. Initial injury occured approx 3 weeks ago after he was hit in the head with some farm equipment. Comorbidities include hx of cardiac triple bypass sx, cardiac stents x 2, HTN and HL. Chief Complaint Pain,Paresthesia,Weakness Symptom Type Throb Symptoms Relieved By Rest/Positioning,Prescription Meds Symptoms Aggravated By Lifting Prior Functional Limitations None Current Functional Limitations Reaching,Lifting,Housework, Driving Symptom Description Constant but Variable Level of pain today (0-10) 1 Pain scale - at its best (0-10) 1 Pain scale - at its worst (0-10) 7 Cervical Eval Palpation Cervical Muscles L Upper Trapezius Cervical/Thoracic Palpation Findings Tenderness,Spasm Posture Head/C-Spine Posture Sitting Position C-Spine Flattened Head/C-Spine Posture Standing Position C-Spine Flattened Flexibility Deficits Upper Trapezius Muscle Length (R) Moderate Tightness,(L) Moderate Tightness Levaetor Scapulae Muscle Length (R) Moderate Tightness,(L) Moderate Tightness Pectoralis Minor Muscle Length (R) Moderate Tightness,(L) Moderate Tightness Passive Joint Mobility Cervical PIVM Dec: R OA L OA R AA L AA R C2/3 L C2/3 R C3/4 L C3/4 R C4/5 L C4/5 R C5/6
== END 2021-11-04 08:05 | disposition home or self-care (01) ==
LOC: PT 08:00
PROVIDERS: PCP Family Medicine; Visit Provider Physician Assistant
DX: M54.2 Cervicalgia (principal); M54.12 Radiculopathy, cervical region; R29.898 Other symptoms and signs involving the musculoskeletal system
CPT/HCPCS: 97163

== ENCOUNTER → 2021-12-08 09:38 | Outpatient (CLI) | payer BC, MEDICARE, SELFPAY ==
[2021-12-08 10:38] LABS: Basophils % 0.5 % (0.1-2.0); Eosinophils # 0.1 K/mm3 (0.0-0.4); Eosinophils % 2.8 % (0.1-12.0); Hematocrit 44.2 % (42.0-52.0); Hemoglobin 15.3 g/dL (14.1-18.0); Lymphocytes # 1.4 K/mm3 (0.7-4.5); Lymphocytes % 27.9 % (10-50); Mean Corpuscular HGB Conc 34.7 g/dL (31.8-35.4); Mean Corpuscular Hemoglobin 30.3 pg (27.0-31.2); Mean Corpuscular Volume 87.2 fl (80-94); Mean Platelet Volume 7.9 fl (7.4-10.4); Monocytes # 0.4 K/mm3 (0.1-1.0); Neutrophils % 60.7 % (37.0-80.0); Platelet Count 204 K/mm3 (142-424); Red Blood Count 5.07 M/mm3 (4.60-6.20); White Blood Count 4.9 K/mm3 (4.8-10.8)
[2021-12-08 10:58] LABS: Alanine Aminotransferase 28 U/L (12-78); Alkaline Phosphatase 73 U/L (38-126); Anion Gap 8.9 mEq/L (5-15); Aspartate Amino Transferase 30 U/L (17-59); Bilirubin,Indirect 0.7 mg/dL (0.0-0.9); Bilirubin,Total 0.7 mg/dl (0.2-1.3); Blood Urea Nitrogen 11 mg/dl (9-20); Calcium 9.3 mg/dl (8.4-10.2); Carbon Dioxide 31 mmol/L (22.0-30.0); Chloride 104 mmol/L (98-107); Cholesterol 139 mg/dl (140-200); Estimated Glomerular Filt Rate 75 ml/min (>60); GFR (African American) 91 ML/MIN (>60); Glucose 116 mg/dl (74-100); HDL Cholesterol 28 mg/dl (40-60); Magnesium 1.9 mg/dl (1.6-2.3); Potassium 4.9 mmoL/L (3.5-5.1); Sodium 139 mmol/L (136-145); Total Protein,Serum 6.6 g/dl (6.3-8.2); Triglycerides 176 mg/dl (30-150); VLDL Cholesterol 35 mg/dL (0-40)
[2021-12-08 11:09] LABS: Direct LDL Cholesterol 71.78 mg/dL (100-129)
== END ==
PROVIDERS: PCP Family Medicine; Visit Provider Physician Assistant
DX: I25.10 Atherosclerotic heart disease of native coronary artery without angina pectoris (principal); I11.9 Hypertensive heart disease without heart failure; E78.2 Mixed hyperlipidemia; Z95.5 Presence of coronary angioplasty implant and graft; Z79.899 Other long term (current) drug therapy
CPT/HCPCS: 36415; 80048; 80061; 80076; 83735; 85025

== ENCOUNTER → 2022-06-15 06:18 | Outpatient (CLI) | payer BC, MEDICARE, SELFPAY ==
--- NOTE | 2022-06-15 | CA_ITS ---
APPROVED REPORT Exam: Pharmacologic Technologist: Purnima Colon Ht: 5 ft 10 in Wt: 211 lbs BSA: 2.14 m2 HR: 63 bpm BP: 143/78 mmHg Indications: Unstable Angina, Chest pain Shortness of air Medical History Medications: Aspirin,,,,, Metoprolol,,,,, CloPIdogrel,,,,, DulOXETINE,,,,, Nitroglycerin,,,,, RoSUVASTATIN,,,,, Stress Test Details Test: LEXISCAN HR Resting HR: 62 bpm Max Heart Rate (APMHR): 154.028382 bpm Max HR Achieved: 89 bpm Target HR (85% APMHR): 130.139489 bpm % of APMHR: 57.79 Recovery HR: 62 bpm BP Resting BP: 143/78 mmHg Max BP: 151/89 mmHg Recovery BP: 142.0/82.0 mmHg ECG Clinical Exercise duration: 04:00 min Highest Stage Achieved: Exercise capacity: 1.0 METs Stress ECG Conclusion Symptoms: Shortness of air. No chest pain. Arrhythmias/Ectopy: None ST-T Changes: No significant changes. Conclusion: Unremarkable Lexiscan stress. Myoview images reported separately. Test Summary REST . . . . . . . Resting REST 03:55 . . 62 . 143/ 78 . . Stage 1 . . . . . . . Myoview Injected Stage 1 01:00 . . 73 . . . . Stage 2 01:00 . . 79 . 142/ 81 . . Stage 3 01:00 . . 70 . 150/ 88 . . Stage 4 01:00 . . 68 . 151/ 89 . Stop exercise at 04:00 RECOVERY 01:00 . . 68 . 148/ 81 . . RECOVERY 02:00 . . 63 . 145/ 80 . . RECOVERY 03:00 . . 66 . 142/ 82 . . RECOVERY 03:18 . . 67 . 142/ 82 . . Electronically signed by : Valeriano Barrera MD 06/16/2022 10:55:12
--- NOTE | 2022-06-15 06:21 | CA_ITS ---
APPROVED REPORT EXAM: Comprehensive 2D, Doppler, and color-flow Echocardiogram [place] Sawyer: Alida Butts, RCS, RVS Ht: 5 ft 10 in Wt: 211lbs BSA: 2.14 BP: 131/73 mmHg Indications: CP, CAd-CABG, Ex-smoker 2D Dimensions Aortic Root 3.05 cm LA Volume 48.50 mL Left Atrium 4.52 cm LA Volume Index 22.10 mL/m2 (M/F) 16-34 LVOT 2.06 cm (M/F) 1.5-2.5 M-Mode Dimensions RVDd 1.60 cm (0.9-2.6) LA Diam 3.96 cm (1.9-4.0) LVDd 5.13 cm (3.5-5.7) Ao Diam 3.20 cm (2.0-3.7) LVDs 3.38 cm (3.5-5.7) IVSd 1.03 cm (0.6-1.1) PWd 0.99 cm (0.6-1.1) EF (Teich) 62.70% EPSs 0.85 cm FS 34.10% EDV (Teich) 125.50 mL TAPSE 2.00 (<1.7) ESV (Teich) 46.80 mL LV Diastology E Decel Time 230.00 (160-240 msec) E/A Ratio 0.70 MED E' 6.90 (< 7 cm/sec) MED A' 10.60 cm/s E'/MED E' Ratio 9.26 (>14) LAT E' 6.80 (<10 cm/sec) LAT A' 9.30 cm/s E/LAT E' Ratio 9.40 (>14) Aortic Valve LVOT Max 102.00 (70-110 cm/s) LVOT VTI 22.92 cm AoV Peak Markell. 147.00 (50-130 cm/s) AO Peak GR. 8.60 mmHg AO Mean GR. 4.30 (<5 mmHg) AO VTI 30.43 (18-25 cm) INDERJIT (VTI) 2.51 (2.5-4.5 cm2) Mitral Valve MV A Velocity 91.00 (40-130 cm/s) E/A Ratio 0.70 MV Decel. Time 230.00 (160-240 ms) MV PHT 67.00 ms Pulmonary Valve PV Peak Velocity 98.00 (50-150 cm/s) Left Ventricle Left atrium is mildly enlarged, left ventricle is normal size, mild concentric left ventricular hypertrophy, estimated ejection fraction 50% with no regional wall motion abnormality, grade 1 diastolic dysfunction seen without tissue Doppler evidence of raise left atrial pressure. Right Ventricle Right atrium and right ventricle are mildly enlarged with normal contractility. Aortic Valve Aortic valve is minimally thickened and fibrosed there is no aortic stenosis or aortic insufficiency. Mitral Valve Mitral valve is grossly normal, there is mild mitral regurgitation. Tricuspid Valve Tricuspid valve grossly normal, there is mild tricuspid regurgitation, tricuspid regurgitation jet velocity is inadequate for calculation of the right ventricular systolic pressure. Pulmonic Valve Pulmonic valve is poorly visualized. Great Vessels Aortic root is normal size. Inferior vena cava is normal size with normal inspiratory collapse. Pericardium No significant pericardial effusion noted. Conclusion 1. Mild biatrial enlargement, normal left ventricular size, mild concentric left ventricular hypertrophy, estimated ejection fraction 50% with no regional wall motion abnormality, grade 1 diastolic dysfunction seen without tissue Doppler evidence of raise left atrial pressure. 2. Mildly enlarged right ventricle with normal contractility. 3. Mild mitral and tricuspid regurgitation. 4. No significant pericardial effusion noted. 5. Inferior vena cava is normal size with normal inspiratory collapse. Electronically signed by : Valeriano Barrera MD 06/16/2022 11:59:38
--- NOTE | 2022-06-15 06:21 | NM_ITS ---
APPROVED REPORT Exam: Nuclear Stress Test Indication: Chest pain, SOB, CAD, CABG, HTN, High cholesterol, Family history Patient Location: Outpatient Stress Tech: Purnima Colon NM Tech:Ava Loera, ARRT, RT (R)(N) Ht: 5 ft 10 in Wt: 210 lbs HR: 62 bpm BP: 143/78 mmHg BSA: 2.13 m2 TID: 1.02 BMI: 30.1 History: Chest pain, SOB, CAD, CABG, HTN, High cholesterol, Family history Procedure: Patient received a 0.4 mg of intravenous Lexiscan, resting heart rate 62 bpm, resting blood pressure 143/78 mmHg, with Lexiscan maximum heart rate achived was 89 bpm which is Less than 85 % of the maximum predicted heart rate and blood pressure was 151/89 mmHg. With Lexiscan, patient denied any complaint of chest pain. Electrocardiogram Resting electrocardiogram shows sinus rhythm, with Lexiscan less than 1.[address] segment depression noted from the baseline EKG. The EKG portion of the Lexiscan is nondiagnostic. Cardiac Stress and Resting SPECT Images: Cardiac Stress and Resting SPECT images were obtained using technetium 99m Myoview 31.3 mCi stress and 10.66 mCi at rest. Gated SPECT analysis of segmental wall motion and calculation of the ejection fraction also done. Prone images were also obtained. Cardiac stress and rest SPECT images show decreased tracer activity in the inferior wall which improves on the resting images suggestive of reversible ischemia, computer derived ejection fraction is 54% with mild inferior wall hypokinesis, right ventricle is mildly enlarged with normal contractility. Conclusion: 1. The EKG portion of the Lexiscan is nondiagnostic. 2. Scintigraphic evidence of reversible ischemia involving the inferior wall, compared to ejection fraction 54% with segmental wall motion abnormality described above, right ventricle is mildly enlarged with normal contractility. 3. Abnormal Lexiscan Myoview study. Electronically signed by : Valeriano Barrera MD 06/16/2022 10:57:50
--- NOTE | 2022-06-15 08:35 | HMH.ITSHM ---
Current Home Medications as stated by this patient Donte Fuentes or sales representative meats. []ROSUVASTATIN NITRO METOPROLOL DULOXETINE CLOPIDOGREL ASA
== END ==
PROVIDERS: PCP Family Medicine; Visit Provider Nurse Practitioner
DX: I20.0 Unstable angina (principal); R06.00 Dyspnea, unspecified; E78.5 Hyperlipidemia, unspecified; Z95.5 Presence of coronary angioplasty implant and graft
CPT/HCPCS: 78452; 93017; 93306; A9502; J2785

== ENCOUNTER → 2022-06-17 11:10 | Outpatient (CLI) | payer BC, MEDICARE, SELFPAY ==
[2022-06-17 12:01] LABS: Basophils # 0.1 K/mm3 (0-0.2); Basophils % 1.8 % (0.1-2.0); Eosinophils # 0.4 K/mm3 (0.0-0.4); Hematocrit 46.6 % (42.0-52.0); Hemoglobin 14.9 g/dL (14.1-18.0); Lymphocytes # 1.4 K/mm3 (0.7-4.5); Lymphocytes % 29.6 % (10-50); Mean Corpuscular HGB Conc 31.9 g/dL (31.8-35.4); Mean Corpuscular Hemoglobin 30.2 pg (27.0-31.2); Mean Corpuscular Volume 94.8 fl (80-94); Mean Platelet Volume 8.6 fl (7.4-10.4); Monocytes # 0.3 K/mm3 (0.1-1.0); Monocytes % 7.2 % (1.7-9.3); Neutrophils # 2.4 K/mm3 (1.8-7.8); Neutrophils % 52.4 % (37.0-80.0); Platelet Count 183 K/mm3 (142-424); Red Blood Count 4.92 M/mm3 (4.60-6.20); Red Cell Distribution Width 13.9 % (11.5-17.5); White Blood Count 4.7 K/mm3 (4.8-10.8)
[2022-06-17 12:44] LABS: Anion Gap 11.2 mEq/L (5-15); Blood Urea Nitrogen 13 mg/dl (9-20); Calcium 8.9 mg/dl (8.4-10.2); Carbon Dioxide 26 mmol/L (22.0-30.0); Chloride 106 mmol/L (98-107); Estimated Glomerular Filt Rate 97 ml/min (>60); GFR (African American) 117 ML/MIN (>60); Glucose 125 mg/dl (74-100); Potassium 4.2 mmoL/L (3.5-5.1); Sodium 139 mmol/L (136-145)
== END ==
PROVIDERS: PCP Family Medicine; Visit Provider Nurse Practitioner
DX: R06.00 Dyspnea, unspecified (principal); I20.0 Unstable angina; E78.2 Mixed hyperlipidemia; R94.39 Abnormal result of other cardiovascular function study; Z95.1 Presence of aortocoronary bypass graft; Z95.5 Presence of coronary angioplasty implant and graft; I63.9 Cerebral infarction, unspecified
CPT/HCPCS: 36415; 80048; 85025

== ENCOUNTER 2022-06-22 11:50 | Day surgery (SDC) | payer BC, MEDICARE, SELFPAY ==
[2022-06-22] VITALS (11 sets, daily range): BP systolic 96–146; BP diastolic 61–84; PULSE 49–58; RESP 16–19; O2SAT 93–100; BMI 30.1
--- NOTE | 2022-06-22 07:06 | IR_ITS ---
APPROVED REPORT Patient Location: Outpatient Right Of Way Supervisor: NORMA Holbrook RT (R) PROCEDURES Left heart catheterization Left ventriculogram Selective coronary angiogram Selective engagement left internal mammary artery INDICATION Coronary artery disease, History of coronary bypass surgery, Angina pectoris, Abnormal Myoview Informed consent was obtained prior to the procedure. COMPLICATIONS None Estimated Blood Loss: Less than 10 mls TECHNIQUE One percent lidocaine used to anesthetize the right groin. The right femoral artery was accessed via the Seldinger technique and a 5 Nepali sheath was placed in the right femoral artery. A JL 4 JR 4 catheter used to perform left heart catheterization left ventriculogram selective coronary geography as well as selective engage in the left internal mammary artery which then had a free ZAK graft teeing off from the BOONE then supplying the diagonal artery. At the end the procedure the apparatus was removed patient was transferred to the postop putting in stable addition for sheath removal ANGIOGRAPHIC RESULTS The left main artery Normal The left anterior descending artery Has an ostial 50% stenosis with stents in the proximal segment which are widely patent. The LAD itself is patent throughout with evidence of competitive flow from the BOONE graft. A large first diagonal artery is patent and has mid vessel 40 and 50% stenoses. There is competitive flow from the free ZAK graft teeing off the BOONE graft. The circumflex artery Nondominant and gives rise to a large obtuse marginal artery. The circumflex artery has a stent in the midportion which has 30% concentric in-stent restenosis The right coronary artery Is a dominant vessel and has proximal stents which are widely patent. Distal to the stents the kashia right coronary artery has 30% diffuse stenosis The BRANDT ventriculogram reveals Preserved 60% The left ventricular end-diastolic pressure 10 mmHg BOONE graft to LAD is small caliber vessel but patent and has competitive flow with the kashia vessel Free ZAK graft teeing off the distal BOONE supplying the first diagonal artery is widely patent. The limb from the diagonal artery to the obtuse marginal artery is occluded Preserved ejection fraction Normal left ventricular end-diastolic pressure IMPRESSION Medical management Electronically signed by : Oscar Tirado MD 06/22/2022 13:23:18
== END 2022-06-22 16:09 | disposition home or self-care (01) ==
PROVIDERS: PCP Family Medicine; Visit Provider Internal Medicine
DX: R94.39 Abnormal result of other cardiovascular function study (principal); Z95.1 Presence of aortocoronary bypass graft; I25.110 Atherosclerotic heart disease of native coronary artery with unstable angina pectoris; T82.855A Stenosis of coronary artery stent, initial encounter; I10 Essential (primary) hypertension; E78.5 Hyperlipidemia, unspecified; Z95.5 Presence of coronary angioplasty implant and graft; Z79.899 Other long term (current) drug therapy
CPT/HCPCS: 93459; 99152; C1725; C1769; C1894; J1644; Q9967

== ENCOUNTER → 2023-02-14 12:40 | Outpatient (CLI) | payer BC, MEDICARE, SELFPAY ==
[2023-02-14 13:47] LABS: Basophils % 0.5 % (0.1-2.0); Eosinophils # 0.3 K/mm3 (0.0-0.4); Eosinophils % 5.9 % (0.1-12.0); Hemoglobin 15.2 g/dL (14.1-18.0); Lymphocytes # 1.3 K/mm3 (0.7-4.5); Mean Corpuscular HGB Conc 32.4 g/dL (31.8-35.4); Mean Corpuscular Hemoglobin 29.6 pg (27.0-31.2); Mean Corpuscular Volume 91.4 fl (80-94); Mean Platelet Volume 8.6 fl (7.4-10.4); Monocytes # 0.3 K/mm3 (0.1-1.0); Monocytes % 7.5 % (1.7-9.3); Neutrophils # 2.5 K/mm3 (1.8-7.8); Neutrophils % 57.1 % (37.0-80.0); Platelet Count 145 K/mm3 (142-424); Red Blood Count 5.14 M/mm3 (4.60-6.20); Red Cell Distribution Width 14.1 % (11.5-17.5); White Blood Count 4.5 K/mm3 (4.8-10.8)
[2023-02-14 15:49] LABS: Alanine Aminotransferase 25 U/L (12-78); Albumin Level 4.1 g/dl (3.5-5.0); Alkaline Phosphatase 92 U/L (38-126); Anion Gap 12.6 mEq/L (5-15); Aspartate Amino Transferase 26 U/L (17-59); Bilirubin,Direct 0.1 mg/dl (0.0-0.4); Bilirubin,Indirect 0.5 mg/dL (0.0-0.9); Bilirubin,Total 0.6 mg/dl (0.2-1.3); Bilirubin,Unconjugated 0.5 mg/dL (0.0-1.1); Blood Urea Nitrogen 11 mg/dl (9-20); Carbon Dioxide 28 mmol/L (22.0-30.0); Chloride 105 mmol/L (98-107); Cholesterol 121 mg/dl (140-200); Estimated Glomerular Filt Rate 75 ml/min (>60); GFR (African American) 90 ML/MIN (>60); Glucose 119 mg/dl (74-100); HDL Cholesterol 30 mg/dl (40-60); Potassium 4.6 mmoL/L (3.5-5.1); Sodium 141 mmol/L (136-145); Total Protein,Serum 6.7 g/dl (6.3-8.2); Triglycerides 182 mg/dl (30-150); VLDL Cholesterol 36 mg/dL (0-40)
[2023-02-14 16:00] LABS: Direct LDL Cholesterol 62.96 mg/dL (100-129)
[2023-02-14 16:19] LABS: Prostate Specific Ag Screen 2.6 ng/ml (0.0-4.0); Thyroid Stimulating Hormone 1.16 uIU/mL (0.465-4.68)
[2023-02-14 16:32] LABS: 25-OH Vitamin D, Total 60.7 ng/mL (30-100); Free T4 (Free Thyroxine) 0.77 ng/dl (0.78-2.19)
== END ==
PROVIDERS: PCP Family Medicine; Visit Provider Internal Medicine
DX: R06.09 Other forms of dyspnea (principal); R00.1 Bradycardia, unspecified; I25.10 Atherosclerotic heart disease of native coronary artery without angina pectoris; I11.9 Hypertensive heart disease without heart failure; E78.5 Hyperlipidemia, unspecified; R94.31 Abnormal electrocardiogram [ECG] [EKG]; E66.9 Obesity, unspecified; Z68.30 Body mass index [BMI] 30.0-30.9, adult; Z95.1 Presence of aortocoronary bypass graft; Z95.5 Presence of coronary angioplasty implant and graft; Z12.5 Encounter for screening for malignant neoplasm of prostate
CPT/HCPCS: 36415; 80048; 80061; 80076; 82306; 83735; 84439; 84443; 85025; G0103

== ENCOUNTER 2023-07-09 13:35 | Emergency (ER) | payer BC, MEDICARE, SELFPAY ==
[2023-07-09 13:36] VITALS: BP 146/80; PULSE 58; RESP 16; TEMP 36.5; O2SAT 96; BMI 30.1
--- NOTE | 2023-07-09 13:45 | ECG_ITS ---
APPROVED REPORT Exam: Resting ECG HR:68 bpm ECG Measurements Heart Rate 68 AXES ID 153 P 67 QRSd 92 QRS -22 QT 379 T 52 QTc 396 Conclusion LEFT ATRIAL ENLARGEMENT with unusual variable atrial morphology - ? atrial bigeminy [-0.1mV P-WAVE IN V1/V2] BORDERLINE LEFT AXIS DEVIATION [QRS AXIS < -20] INCOMPLETE RIGHT BUNDLE BRANCH BLOCK [90+ ms QRS DURATION, TERMINAL R IN V1/V2, 40+ ms S IN I/aVL/V4/V5/V6] ABNORMAL RHYTHM ECG UNCONFIRMED REPORT Electronically signed by : Jose Masterson MD 07/09/2023 21:15:54
--- NOTE | 2023-07-09 13:58 | XR_ITS ---
PROCEDURE INFORMATION: Exam: XR Chest Exam date and time: 07/09/2023 2:00 PM Age: 68 years old Clinical indication: Cough; Additional info: Cough, SOA covid + TECHNIQUE: Imaging protocol: Radiologic exam of the chest. Views: 1 view. COMPARISON: CR XR CHEST 2V 09/30/2021 1:26 PM FINDINGS: Lungs: No evidence of pneumonia or interstitial edema. There is poor ventilation of the lungs, with perihilar vascular crowding and a diffuse increase in pulmonary parenchymal density. Pleural spaces: Unremarkable. No pleural effusion. No pneumothorax. Heart/Mediastinum: Unremarkable Bones/joints: Sternotomy wires are intact. IMPRESSION: No evidence of pneumonia or interstitial edema.
[2023-07-09 14:00] VITALS: BP 141/80; PULSE 63; O2SAT 95
--- NOTE | 2023-07-09 14:01 | ED_ITS ---
Discharge Plan Disposition Patient Disposition: Home, Self-Care Condition: Good Prescriptions Prescriptions: No Action aspirin [Adult Low Dose Aspirin] 81 mg tablet,delayed release (DR/EC) 81 mg PO DAILY duloxetine 60 mg capsule,delayed release(DR/EC) 60 mg PO DAILY nitroglycerin 0.4 mg tablet, sublingual 0.4 mg SUBLINGUAL Q5M PRN (Reason: Chest Pain) Qty: 20 0RF clopidogrel 75 mg tablet See Rx Instructions .ROUTE .COMPLEX Qty: 90 3RF Dose Instruction: TAKE 1 TABLET BY MOUTH ONCE DAILY Rx Instructions: TAKE 1 TABLET BY MOUTH ONCE DAILY metoprolol tartrate 50 mg tablet See Rx Instructions .ROUTE .COMPLEX Qty: 180 4RF Dose Instruction: TAKE 1 TABLET BY MOUTH TWICE DAILY Rx Instructions: TAKE 1 TABLET BY MOUTH TWICE DAILY rosuvastatin 20 mg tablet See Rx Instructions .ROUTE .COMPLEX Qty: 90 4RF Dose Instruction: TAKE 1 TABLET BY MOUTH ONCE DAILY Rx Instructions: TAKE 1 TABLET BY MOUTH ONCE DAILY Referrals Follow up/Referrals: Kvng Mae MD [Primary Care Provider] - See instructions Activity Restrictions/Add. Instructions Additional Instructions/Restrictions: You were evaluated in the emergency department today. Take Tylenol and ibuprofen at home as needed for pain and fevers. Hydrate is much as possible. Follow-up with your primary care provider for reassessment. Return to the emergency department for new or worsening symptoms. Expect that she will feel bad for at least a week and will call for likely 6 weeks. Clinical Impressions Clinical Impression: COVID-19 Instructions Patient Instructions: DI for COVID-19 (Suspected or Confirmed ) Discharge ED Provider: Mariana Robins General Adult HPI General Chief complaint: Shortness of Breath/Dyspnea Stated complaint: Covid, lightheaded, dizzy, fever, cough Time Seen by Provider: 07/09/23 13:42 History of Present Illness HPI narrative: This patient is a 68-year-old male with a history of CAD status post CABG, hypertension, hyperlipidemia, hypertensive heart disease, SHERLEY, and obesity presenting to the emergency department for evaluation with concern for fever, cough, lightheadedness in the setting of COVID-19. He also complains of chest pressure. He started with symptoms on Tuesday 3d ago and tested positive for COVID-19. He notes he still been able to eat and drink. No abdominal pain, nausea, vomiting, change in bowel movements, or other concerns. Is been concern is a cough, as he states that when he gets coughing hard he feels like he is going to pass out. Related Data Home Medications Medication Instructions Recorded Confirmed aspirin 81 mg tablet,delayed 81 mg PO DAILY HEART HEALTH 07/12/17 02/14/23 release (Adult Low Dose Aspirin) duloxetine 60 mg capsule,delayed 60 mg PO DAILY Depression 11/27/19 02/14/23 release Previous Rx's Medication Instructions Recorded nitroglycerin 0.4 mg sublingual 0.4 mg sublingual Q5M PRN Chest 11/27/20 tablet Pain #20 tabs clopidogrel 75 mg tablet See Rx Instructions .Route 10/25/22 .COMPLEX #90 tabs metoprolol tartrate 50 mg tablet See Rx Instructions .Route 02/04/23 .COMPLEX #180 tabs rosuvastatin 20 mg tablet See Rx Instructions .Route 03/21/23 .COMPLEX #90 tabs Allergies Allergy/AdvReac Type Severity Reaction Status Date / Time ranolazine [From Ranexa] AdvReac Severe Verified 02/14/23 11:40 isosorbide AdvReac Intermediate headache Verified 02/14/23 11:40 PFSH PFS Disclaimer: The information contained in this section may have been updated after the patient was seen, as this information can be updated by other users. Medical History Angina, class III CAD (coronary artery disease) Daytime somnolence Diastolic dysfunction Dyspnea Gastroesophageal reflux disease HHD (hypertensive heart disease) HLD (hyperlipidemia) SHERLEY (obstructive sleep apnea) Other forms of angina pectoris Restless sleeper Sinus bradycardia Unstable angina Surgical History Stented coronary artery Social History Smoking Status: Former smoker tobacco type: cigarettes second hand exposure: No alcohol intake: never substance use type: denies use current occupational status: employed Travel in the last 8 weeks: Inside the [place] household members: spouse housing: house current occupation: [employer] current occupational exposures/hazards: No caffeine: Yes ROS Obtained: Yes All systems reviewed & no additional complaints except as documented Physical Exam General General appearance: alert, in no apparent distress and obese Head Head exam: atraumatic and normocephalic Eye Eye exam: Present normal appearance, PERRL and EOMI ENT ENT exam: Present normal exam, normal oropharynx, mucous membranes moist and normal external ear exam Neck Neck exam: Present normal inspection, full ROM and trachea midline; Absent tenderness Chest Chest inspection: Present normal inspection and symmetric chest wall rise; Absen t tenderness Respiratory Respiratory exam: Present normal lung sounds bilaterally; Absent respiratory distress, wheezes, stridor or accessory muscle use Cardiovascular Cardiovascular exam: Present regular rate and normal rhythm Abdominal Exam Abdominal exam: Present soft; Absent distention, tenderness or guarding Extremities Exam Extremities exam: Present normal inspection, full ROM and normal capillary refill; Absent tenderness or edema Back Exam Back exam: Present normal inspection and full ROM; Absent tenderness Neurological Exam Neurological exam: Present alert, oriented X3, CN II-XII intact and normal gait; Absent motor sensory deficit Psychiatric Psychiatric exam: Present normal affect and normal mood Skin Skin exam: Present warm and dry Medical Decision Making Medical Records Medical records reviewed: Yes I reviewed the patient's medical records. Baljit Inquiry Pt receiving controlled substance: No Vital Signs: 07/09/23 13:36 07/09/23 14:00 07/09/23 15:01 Temperature 97.7 F Temperature Source Oral Pulse Rate 63 71 Pulse Rate [Left Radial] 58 L Respiratory Rate 16 Blood Pressure 141/80 H 130/71 Blood Pressure [Right Arm] 146/80 H Blood Pressure Mean 100 Blood Pressure Mean [Right Arm] 102 Blood Pressure Source [Right Arm] Automatic Cuff Blood Pressure Position [Right Arm] Sitting 02 Sat by Pulse Oximetry 96 95 94 L Oxygen Delivery Method Room Air Room Air 07/09/23 15:37 Temperature 97.7 F Temperature Source Pulse Rate 69 Pulse Rate [Left Radial] Respiratory Rate 16 Blood Pressure 130/71 Blood Pressure [Right Arm] Blood Pressure Mean Blood Pressure Mean [Right Arm] Blood Pressure Source [Right Arm] Blood Pressure Position [Right Arm] 02 Sat by Pulse Oximetry Oxygen Delivery Method Room Air Lab Data Lab results reviewed: Yes I reviewed the patient's lab results. Lab Results 07/09/23 13:50: WBC 3.6 L, RBC 5.01, Hgb 16.0, Hct 44.9, MCV 89.6, MCH 32.0 H, MCHC 35.7 H, RDW 14.2, Plt Count 130 L, MPV 8.6, Neut % (Auto) 45.7, Lymph % (Auto) 37.1, [place] % (Auto) 10.2 H, Eos % (Auto) 5.8, Baso % (Auto) 1.1, Neut # (Auto) 1.6 L, Lymph # (Auto) 1.3, [place] # (Auto) 0.4, Eos # (Auto) 0.2, Baso # (Auto) 0.0, Sodium 138, Potassium 4.1, Chloride 106, Carbon Dioxide 27, Anion Gap 9.1, BUN 14, Creatinine 1.00, Estimated Creat Clear 97, Estimated GFR 75, Est GFR ( Amer) 90, Glucose 137 H, Calcium 8.4, Total Bilirubin 0.8, AST 39, ALT 36, Alkaline Phosphatase 65, Troponin I < 0.01, NT-Pro-B Natriuret Pep < 20.0, Total Protein 6.6, Albumin 3.9, Globulin 2.7, Albumin/Globulin Ratio 1.4 07/09/23 13:50 07/09/23 13:50 Orders (Tests/Meds): ED MEDICATIONS Discontinued Medications Generic Name Dose Route Start Last Admin Trade Name Freq PRN Reason Stop Dose Admin Acetaminophen 1,000 mg 07/09/23 13:59 07/09/23 14:10 Acetaminophen 1,000mg/100ml Vial IV 07/09/23 14:00 1,000 mg ONCE ONE Administration Lactated Ringer's 1,000 mls @ 999 mls/hr 07/09/23 13:59 07/09/23 14:10 Lactated Ringer's 1000 Ml Bag IV 07/09/23 14:59 999 mls/hr .Q1H1M ONE Administration Ketorolac Tromethamine 15 mg 07/09/23 13:59 07/09/23 14:10 Ketorolac 30mg/Ml Vial IV 07/09/23 14:00 15 mg ONCE ONE Administration ORDERS Category Date Time Status XR chest portable Stat Exams 07/09/23 13:58 Completed Brain Natriuretic Peptide Stat Lab 07/09/23 13:50 Completed Complete Blood Count Auto Diff Stat Lab 07/09/23 13:50 Completed Comprehensive Metabolic Panel Stat Lab 07/09/23 13:50 Completed Troponin I Q3H Lab 07/09/23 17:00 Ordered Troponin I Q3H Lab 07/09/23 20:00 Ordered Troponin I Stat Lab 07/09/23 13:50 Completed ECG initial Besson Routine Y 07/09/23 13:45 Completed ECG Data Tracing #1: I reviewed this ECG and interpreted as documented below: Normal sinus rhythm with a ventricular rate of 68 bpm. PACs noted in a bigeminal pattern. Incomplete right bundle branch block noted. No significant changes noted from prior EKG aside from the frequent premature complexes ECG initial impression date: 07/09/23 ECG initial impression time: 13:52 Medical Decision Narrative: In summary, this patient is a 68-year-old male presenting to the Emergency Department for evaluation of fever, cough, and lightheadedness in the setting of COVID-19. Differential diagnoses considered include but are not limited to syndrome, pneumonia, dehydration, ACS, dysrhythmia. Ruling out the most morbid conditions drove assessment. It should be noted patient's history includes CAD status post CABG, hype rtension, hyperlipidemia, and hypertensive heart disease which may not be at goal therapy. This complicates all aspects of care by increasing patient's risk for morbidity. On exam, the patient is well-appearing. He has normal vital signs on cardiac telemetry. He does have frequent PACs but no other concerns. workup included CBC, CMP, troponin, BNP, chest x-ray, and EKG. HE WAS GIVEN IV FLUIDS WELL IV TORADOL AND ACETAMINOPHEN FOR SYMPTOMATIC IMPROVEMENT. EKG is reassuring. I independently interpreted x-ray prior to the radiologist read and noted no pneumonia, pulmonary edema, or other concerns. Please see their read for final interpretation. Labs were obtained that demonstrated concerning abnormalities with negative troponin and otherwise normal labs. On reassessment, patient is feeling better after administration of interventions above. At this time, feel that he is appropriate for discharge with instructions for supportive management, strict return precautions, and he was discharged in stable condition. Critical Care Critical Care Time Critical Care Time: No
--- NOTE | 2023-07-09 14:04 | PC.NURSE ---
RAD at BS
[2023-07-09] MEDS: ACETAMINOPHEN 1,000MG/100ML VIAL 1000 MG IV (14:10)
[2023-07-09] MEDS: LACTATED RINGERS 1000ML 1,000 ML 999 ML IV (14:10)
[2023-07-09] MEDS: KETOROLAC 30MG/ML VIAL 15 MG IV (14:10)
[2023-07-09 14:23] LABS: Chloride 106 mmol/L (98-107); Sodium 138 mmol/L (136-145)
[2023-07-09 14:24] LABS: Potassium 4.1 mmoL/L (3.5-5.1)
[2023-07-09 14:26] LABS: Alanine Aminotransferase 36 U/L (12-78); Albumin Level 3.9 g/dl (3.5-5.0); Albumin/Globulin Ratio 1.4 (1.1-1.8); Alkaline Phosphatase 65 U/L (38-126); Anion Gap 9.1 mEq/L (5-15); Aspartate Amino Transferase 39 U/L (17-59); Basophils % 1.1 % (0.1-2.0); Bilirubin,Total 0.8 mg/dl (0.2-1.3); Blood Urea Nitrogen 14 mg/dl (9-20); Carbon Dioxide 27 mmol/L (22.0-30.0); Creatinine Clearance Estimated 97 mL/min (50-200); Eosinophils # 0.2 K/mm3 (0.0-0.4); Eosinophils % 5.8 % (0.1-12.0); Estimated Glomerular Filt Rate 75 ml/min (>60); GFR (African American) 90 ML/MIN (>60); Globulin 2.7 g/dL (1.3-3.2); Hematocrit 44.9 % (42.0-52.0); Lymphocytes # 1.3 K/mm3 (0.7-4.5); Lymphocytes % 37.1 % (10-50); Mean Corpuscular HGB Conc 35.7 g/dL (31.8-35.4); Mean Corpuscular Volume 89.6 fl (80-94); Mean Platelet Volume 8.6 fl (7.4-10.4); Monocytes # 0.4 K/mm3 (0.1-1.0); Monocytes % 10.2 % (1.7-9.3); Neutrophils # 1.6 K/mm3 (1.8-7.8); Neutrophils % 45.7 % (37.0-80.0); Platelet Count 130 K/mm3 (142-424); Red Blood Count 5.01 M/mm3 (4.60-6.20); Red Cell Distribution Width 14.2 % (11.5-17.5); Total Protein,Serum 6.6 g/dl (6.3-8.2); White Blood Count 3.6 K/mm3 (4.8-10.8)
[2023-07-09 14:27] LABS: Calcium 8.4 mg/dl (8.4-10.2); Glucose 137 mg/dl (74-100)
[2023-07-09 14:36] LABS: NT Pro Brain Natriuretic Pep. < 20.0 pg/mL (0-125)
[2023-07-09 14:44] LABS: Troponin I < 0.01 ng/ml (0.00-0.034)
[2023-07-09 15:01] VITALS: BP 130/71; PULSE 71; O2SAT 94
[2023-07-09 15:37] VITALS: BP 130/71; PULSE 69; RESP 16; TEMP 36.5; O2SAT 95
== END 2023-07-09 15:39 | disposition home or self-care (01) ==
PROVIDERS: Emergency Provider Emergency Medicine; PCP Family Medicine
DX: U07.1 COVID-19 (principal); R50.9 Fever, unspecified; R05.9 Cough, unspecified; R42 Dizziness and giddiness; R07.89 Other chest pain; I45.19 Other right bundle-branch block; I49.1 Atrial premature depolarization; I11.0 Hypertensive heart disease with heart failure; I25.110 Atherosclerotic heart disease of native coronary artery with unstable angina pectoris; E78.5 Hyperlipidemia, unspecified; G47.33 Obstructive sleep apnea (adult) (pediatric); K21.9 Gastro-esophageal reflux disease without esophagitis; Z87.891 Personal history of nicotine dependence
CPT/HCPCS: 71045; 80053; 83880; 84484; 85025; 93005; 96361; 96374; 96375; 99285; J0131

== ENCOUNTER 2023-08-30 09:20 | Outpatient (CLI) | payer BC, MEDICARE, SELFPAY ==
--- NOTE | 2023-08-30 09:24 | CA_ITS ---
APPROVED REPORT EXAM: Comprehensive 2D, Doppler, and color-flow Echocardiogram Body Man: Renee Martinez RVT Ht: 5 ft 10 in Wt: 212lbs BSA: 2.14 BP: 134/83 mmHg Indications: ABN EKG,CAD,CABG,HTN,CP,EX SMOKER,HLD 2D Dimensions Left Atrium 3.33 cm M: 3.0 - 4.0 LA Volume 33.20 mL RVID Base (AP4) 2.89 cm (M/F) 2.5-4.1 LA Volume Index 15.51 mL/m2 (M/F) 16-34 LVOT 2.04 cm (M/F) 1.5-2.5 EF AP4 57.30 % GL Strain -19.4 % M-Mode Dimensions RVDd 3.46 cm (0.9-2.6) LVDd 4.47 cm (3.5-5.7) Ao Diam 3.11 cm (2.0-3.7) LVDs 2.98 cm (3.5-5.7) IVSd 1.33 cm (0.6-1.1) PWd 0.48 cm (0.6-1.1) EF (Teich) 62.20% FS 33.30% EDV (Teich) 91.00 mL TAPSE 1.93 (<1.7) ESV (Teich) 34.40 mL LV Diastology E Decel Time 269 (160-240 msec) E/A Ratio 0.8 MED E' 11.2 (>= 7 cm/sec) E'/MED E' Ratio 6.55 (<= 14) LAT E' 9.2 (>= 10 cm/sec) E/LAT E' Ratio 7.98 (<= 14) Aortic Valve LVOT Max 111.0 (70-110 cm/s) INDERJIT Index 1.32 cm2/m2 LVOT VTI 26.16 cm AoV Peak Markell. 146.0 (50-130 cm/s) AO Peak GR. 4.40 mmHg AO Mean GR. 4.00 (<5 mmHg) AO VTI 30.2 (18-25 cm) INDERJIT (VTI) 2.83 (2.5-4.5 cm2) Mitral Valve MV E Max Markell. 73.0 (40-130 cm/s) MV A Velocity 87.0 (40-130 cm/s) E/A Ratio 0.84 MV Decel. Time 269 (160-240 ms) Tricuspid Valve TR P. Velocity 243.00 cm/s RAP Estimate 10.00 mmHg RVSP 33.60 mmHg Left Ventricle The left ventricle is normal size. The left ventricular systolic function is normal. The left ventricular ejection fraction is within the normal range. Proximal septal thickening is noted. There is normal LV segmental wall motion. The left ventricular diastolic function is normal. LVEF is 55%. Right Ventricle The right ventricle is mildly dilated. The right ventricular systolic function is normal. Atria The left atrium size is normal. The right atrium size is normal. There is no Doppler evidence of interatrial shunt. Aortic Valve The aortic valve is mildly thickened. Trace aortic regurgitation. There is no aortic valvular stenosis. Mitral Valve The mitral valve leaflets are mildly thickened. No evidence of mitral valve stenosis. Mildly mitral regurgitation. Tricuspid Valve The tricuspid valve leaflets are thin and pliable. Trace tricuspid regurgitation. There is insufficient TR jet to estimate RVSP. Pulmonic Valve The pulmonary valve is normal in structure. Trace pulmonic regurgitation. Great Vessels The aortic root is normal in size. The ascending aorta is not well-visualized. IVC is normal in size and collapses >50% with inspiration. Pericardium There is no pericardial effusion. Other Information Study Quality: Fair Conclusion Normal biventricular systolic function. Mild MR. Electronically signed by : Jocelynn Shanks MD 09/01/2023 12:01:25
== END 2023-08-30 23:59 ==
LOC: RT 09:21
PROVIDERS: PCP Family Medicine; Visit Provider Internal Medicine
DX: R94.31 Abnormal electrocardiogram [ECG] [EKG] (principal); I51.9 Heart disease, unspecified; Z95.1 Presence of aortocoronary bypass graft
CPT/HCPCS: 93306

== ENCOUNTER 2023-10-04 20:22 | Emergency (ER) | payer BC, MEDICARE, SELFPAY ==
[2023-10-04 20:22] VITALS: BP 168/86; PULSE 71; RESP 20; TEMP 36.5; O2SAT 96; BMI 30.7
--- NOTE | 2023-10-04 20:27 | ED_ITS ---
<Statement entered by Nikunj Cervantes MD - 10/04/23 23:10> I was consulted by the DIDIER, and we discussed the complexity of the problems being addressed. I approved the treatment and management plan for this patient's care in the emergency department, thus performing a substantive portion of the medical decision making. Nikunj Cervantes MD, ANGELITO, FACEP Discharge Plan Disposition Patient Disposition: Home, Self-Care Condition: Good Prescriptions Prescriptions: New lidocaine 5 % adhesive patch,medicated 1 patch topical DAILY Qty: 30 0RF Rx Instructions: leave on most painful area for up to 12 hrs methocarbamol 750 mg tablet 750 mg PO Q6H PRN (Reason: muscle spasm) Qty: 10 0RF prednisone 50 mg tablet 50 mg PO DAILY 5 Days Qty: 5 0RF No Action aspirin [Adult Low Dose Aspirin] 81 mg tablet,delayed release (DR/EC) 81 mg PO DAILY duloxetine 60 mg capsule,delayed release(DR/EC) 60 mg PO DAILY amlodipine 2.5 mg tablet 2.5 mg PO DAILY Qty: 30 2RF pantoprazole 40 mg tablet,delayed release (DR/EC) 40 mg PO DAILY Qty: 14 0RF rosuvastatin 40 mg tablet 40 mg PO DAILY Qty: 90 3RF nitroglycerin 0.4 mg tablet, sublingual 0.4 mg SUBLINGUAL Q5M PRN (Reason: Chest Pain) Qty: 20 0RF clopidogrel 75 mg tablet See Rx Instructions .ROUTE .COMPLEX Qty: 90 3RF Dose Instruction: TAKE 1 TABLET BY MOUTH ONCE DAILY Rx Instructions: TAKE 1 TABLET BY MOUTH ONCE DAILY metoprolol tartrate 50 mg tablet See Rx Instructions .ROUTE .COMPLEX Qty: 180 4RF Dose Instruction: TAKE 1 TABLET BY MOUTH TWICE DAILY Rx Instructions: TAKE 1 TABLET BY MOUTH TWICE DAILY Referrals Follow up/Referrals: Kvng Mae MD [Primary Care Provider] - See instructions Activity Restrictions/Add. Instructions Additional Instructions/Restrictions: Please follow-up with PCP for any worsening signs or symptoms. Return to the emergency department for any change in bowel or bladder function increasing numbness or tingling lower extremities or muscle weakness as needed Clinical Impressions Clinical Impression: Acute low back pain Qualifiers: Back pain laterality: midline Instructions Patient Instructions: DI for Low Back Pain Discharge ED Provider: Nikunj Cervantes General Adult [facility] General Chief complaint: Back Pain/Injury Stated complaint: back pain Time Seen by Provider: 10/04/23 20:27 History of Present Illness HPI narrative: Patient presents with a 3-day history of acute lumbar back pain. 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 Patient denies neuropathic pain radicular pain or paresthesias saddle anesthesia muscle weakness leg weakness loss of bowel or bladder. He has never had anything like this before. He states it is worse with crossing right leg over left or rotating to the left. There is no specific relieving factors. He denies chest pain fever chills hemoptysis hematochezia melena nausea vomiting diarrhea hematuria. Related Data Home Medications Medication Instructions Recorded Confirmed aspirin 81 mg tablet,delayed 81 mg PO DAILY HEART HEALTH 07/12/17 09/15/23 release (Adult Low Dose Aspirin) duloxetine 60 mg capsule,delayed 60 mg PO DAILY Depression 11/27/19 09/15/23 release Previous Rx's Medication Instructions Recorded nitroglycerin 0.4 mg sublingual 0.4 mg sublingual Q5M PRN Chest 11/27/20 tablet Pain #20 tabs clopidogrel 75 mg tablet See Rx Instructions .Route 10/25/22 .COMPLEX #90 tabs metoprolol tartrate 50 mg tablet See Rx Instructions .Route 02/04/23 .COMPLEX #180 tabs amlodipine 2.5 mg tablet 2.5 mg PO DAILY #30 tabs 08/15/23 pantoprazole 40 mg tablet,delayed 40 mg PO DAILY #14 tabs 08/15/23 release rosuvastatin 40 mg tablet 40 mg PO DAILY #90 tabs 09/15/23 lidocaine 5 % topical patch 1 patch topical DAILY #30 ea 10/04/23 methocarbamol 750 mg tablet 750 mg PO Q6H PRN muscle spasm #10 10/04/23 tabs prednisone 50 mg tablet 50 mg PO DAILY 5 days #5 tabs 10/04/23 Allergies Allergy/AdvReac Type Severity Reaction Status Date / Time ranolazine [From Ranexa] AdvReac Severe Verified 09/15/23 14:30 isosorbide AdvReac Intermediate headache Verified 09/15/23 14:30 [facility] Disclaimer: The information contained in this section may have been updated after the patient was seen, as this information can be updated by other users. Medical History Dyspnea Unstable angina Sinus bradycardia SHERLEY (obstructive sleep apnea) Gastroesophageal reflux disease Restless sleeper Daytime somnolence Diastolic dysfunction Angina, class III HLD (hyperlipidemia) HHD (hypertensive heart disease) CAD (coronary artery disease) Other forms of angina pectoris Surgical History Stented coronary artery Social History Smoking Status: Former smoker tobacco type: cigarettes second hand exposure: No alcohol intake: never substance use type: denies use current occupational status: employed Travel in the last 8 weeks: [place] the [place] household members: spouse housing: house current occupation: [employer] current occupational exposures/hazards: No caffeine: Yes ROS Obtained: Yes Systems reviewed as appropriate & no additional complaints except as documented Physical Exam General General appearance: alert and in no apparent distress Neck Neck exam: Present normal inspection and full ROM Chest Chest inspection: Present normal inspection Respiratory Respiratory exam: Present normal lung sounds bilaterally; Absent respiratory distress Cardiovascular Cardiovascular exam: Present regular rate, normal rhythm and +S2 Abdominal Exam Abdominal exam: Present soft and normal bowel sounds; Absent tenderness Extremities Exam Extremities exam: Present normal inspection and full ROM Back Exam Back exam: Present normal inspection; Absent full ROM (Patient is tender to palpation in the midline of the lumbar/sacral spine but no deformities noted. He has reduced range of motion in same area.) or tenderness Neurological Exam Neurological exam: Present alert, oriented X3 and CN II-XII intact Skin Skin exam: Present warm, dry and normal color Medical Decision Making Medical Records Medical records reviewed: Yes I reviewed the patient's medical records. Baljit Inquiry Pt receiving controlled substance: No Vital Signs: 10/04/23 20:22 10/04/23 21:00 10/04/23 21:30 Temperature 97.7 F Temperature Source Oral Pulse Rate 65 66 Pulse Rate [Left Radial] 71 Respiratory Rate 20 Blood Pressure 133/89 126/79 Blood Pressure [Right Arm] 168/86 H Blood Pressure Mean [Right Arm] 113 02 Sat by Pulse Oximetry 96 94 L 94 L Oxygen Delivery Method Room Air Lab Data Lab results reviewed: Yes I reviewed the patient's lab results. Lab Results 10/04/23 21:15: WBC 5.5, RBC 4.84, Hgb 14.9, Hct 45.5, MCV 94.0, MCH 30.7, MCHC 32.6, RDW 14.5, Plt Count 172, MPV 8.5, Neut % (Auto) 57.5, Lymph % (Auto) 29.7, [place] % (Auto) 6.4, Eos % (Auto) 5.4, Baso % (Auto) 1.0, Neut # (Auto) 3.1, Lymph # (Auto) 1.6, [place] # (Auto) 0.4, Eos # (Auto) 0.3, Baso # (Auto) 0.1, Sodium 139, Potassium 4.0, Chloride 106, Carbon Dioxide 30, Anion Gap 7.0, BUN 11, Creatinine 0.90, Estimated Creat Clear 98, Estimated GFR 84, Est GFR ( Amer) 102, Glucose 133 H, Calcium 9.1 10/04/23 21:15 10/04/23 21:15 Orders (Tests/Meds): ED MEDICATIONS Generic Name Dose Route Start Last Admin Trade Name Freq PRN Reason Stop Dose Admin Methocarbamol 500 mg 10/04/23 21:00 10/04/23 21:12 Methocarbamol 500mg Tablet PO 11/03/23 20:59 500 mg BID KELSIE Administration Discontinued Medications Generic Name Dose Route Start Last Admin Trade Name Freq PRN Reason Stop Dose Admin Acetaminophen 1,000 mg 10/04/23 20:36 10/04/23 21:11 Acetaminophen 1,000mg/100ml Vial IV 10/04/23 20:37 1,000 mg ONCE ONE Administration Dexamethasone Sodium Phosphate 10 mg 10/04/23 20:36 10/04/23 21:11 Dexamethasone 4mg/Ml 5ml Mdv IV 10/04/23 20:37 10 mg ONCE ONE Administration Ketorolac Tromethamine 15 mg 10/04/23 20:36 10/04/23 21:12 Ketorolac 30mg/Ml Vial IV 10/04/23 20:37 15 mg ONCE ONE Administration Lidocaine 1 each 10/04/23 20:36 10/04/23 21:12 Lidocaine 5% Transdermal Patch TP 10/04/23 20:37 1 each ONCE ONE Administration ORDERS Category Date Time Status CT bony pelvis Stat Cat Scan 10/04/23 20:[address] lumbar spine wo con Stat Cat Scan 10/04/23 20:36 Completed BMP [Basic Metabolic Panel] Stat Lab 10/04/23 21:15 Completed CBC w/Auto Diff [Complete Blood Count Auto Diff] Stat Lab 10/04/23 21:15 Completed UA [Urinalysis and Microscopic] Stat Lab 10/04/23 20:36 Ordered Medical Decision Narrative: In summary patient is a 68-year-old male who presents to the emergency department for evaluation of low back pain. Patient is dynamically stable upon arrival, afebrile. Sickle exam is remarkable for tenderness to palpation in the lower lumbar midline spine without deformity. There is no neurovascular compromise no saddle anesthesia in the bilateral lower extremities and patient has normal gait motor and sensory.. Differential diagnosis includes muscle strain versus degenerative disc disease versus occult fracture versus infection versus kidney stone etc. Initial workup will be conducted with hematologic labs CT scan of the L-spine and bony pelvis. Initial interventions include Toradol Tylenol lidocaine patch and Decadron. Initial workup reviewed by me shows no acute processes BMI informal interpretation of his imaging.. Upon repeat evaluation and has started to have resolution of his discomfort.. Given this and interactive discussion with the patient regarding his symptoms and he is appropriate for discharge home with a prescription for Robaxin lidocaine patch and 5 days of steroids with close follow-up with his PCP. Critical Care Critical Care Time Critical Care Time: No
--- NOTE | 2023-10-04 20:36 | CT_ITS ---
PROCEDURE INFORMATION: Exam: CT Lumbar Spine Without Contrast Exam date and time: 10/04/2023 8:48 PM Age: 68 years old Clinical indication: Low back pain; Additional info: Acute low bck pain TECHNIQUE: Imaging protocol: Computed tomography of the lumbar spine without contrast. Radiation optimization: All CT scans at this facility use at least one of these dose optimization techniques: automated exposure control; mA and/or kV adjustment per patient size (includes targeted exams where dose is matched to clinical indication); or iterative reconstruction. COMPARISON: No relevant prior studies available. FINDINGS: Bones/joints: Moderate loss of intervertebral disc space with degenerative changes at L2 through L5 with broad-based posterior disc protrusions combined with endplate osteophytosis results in [id number] bilateral neural foraminal stenosis greatest at L4-L5, and L5-S1. The vertebral bodies are maintained in height and alignment. No evidence of acute osseous abnormality. Soft tissues: Unremarkable. IMPRESSION: 1. Moderate loss of intervertebral disc space with degenerative changes at L2 through L5 with broad-based posterior disc protrusions combined with endplate osteophytosis results in [id number] bilateral neural foraminal stenosis greatest at L4-L5, and L5-S1. 2. No evidence of acute osseous abnormality.
--- NOTE | 2023-10-04 20:36 | CT_ITS ---
PROCEDURE INFORMATION: Exam: CT Pelvis Without Contrast; Skeletal Exam date and time: 10/04/2023 8:51 PM Age: 68 years old Clinical indication: Pelvic pain; Additional info: Acute low back pain TECHNIQUE: Imaging protocol: Computed tomography of the pelvis without contrast. Exam focused on the skeleton. Radiation optimization: All CT scans at this facility use at least one of these dose optimization techniques: automated exposure control; mA and/or kV adjustment per patient size (includes targeted exams where dose is matched to clinical indication); or iterative reconstruction. COMPARISON: CT LUMBAR SPINE WO CON 10/04/2023 8:48 PM FINDINGS: Intestine: The large and small bowel are normal in caliber without wall thickening. Bones/joints: Moderate loss of intervertebral disc space with degenerative changes at L5-S1 resulting in moderate bilateral neural foraminal stenosis at these levels. Moderate osteophytosis and degenerative changes involve the bilateral femoroacetabular joints with subchondral cystic changes. Soft tissues: Unremarkable. IMPRESSION: 1. Moderate loss of intervertebral disc space with degenerative changes at L5-S1 resulting in moderate bilateral neural foraminal stenosis at these levels. 2. Moderate osteophytosis and degenerative changes involve the bilateral femoroacetabular joints with subchondral cystic changes.
[2023-10-04 21:00] VITALS: BP 133/89; PULSE 65; O2SAT 94
[2023-10-04] MEDS: ACETAMINOPHEN 1,000MG/100ML VIAL 1000 MG IV (21:11)
[2023-10-04] MEDS: DEXAMETHASONE 4MG/ML 5ML MDV 10 MG IV (21:11)
[2023-10-04] MEDS: KETOROLAC 30MG/ML VIAL 15 MG IV (21:12)
[2023-10-04] MEDS: METHOCARBAMOL 500MG TABLET 500 MG PO (21:12)
[2023-10-04] MEDS: LIDOCAINE 5% TRANSDERMAL PATCH 1 EACH TP (21:12)
[2023-10-04 21:25] LABS: Basophils # 0.1 K/mm3 (0-0.2); Eosinophils # 0.3 K/mm3 (0.0-0.4); Eosinophils % 5.4 % (0.1-12.0); Hematocrit 45.5 % (42.0-52.0); Hemoglobin 14.9 g/dL (14.1-18.0); Lymphocytes # 1.6 K/mm3 (0.7-4.5); Lymphocytes % 29.7 % (10-50); Mean Corpuscular HGB Conc 32.6 g/dL (31.8-35.4); Mean Corpuscular Hemoglobin 30.7 pg (27.0-31.2); Mean Platelet Volume 8.5 fl (7.4-10.4); Monocytes # 0.4 K/mm3 (0.1-1.0); Monocytes % 6.4 % (1.7-9.3); Neutrophils # 3.1 K/mm3 (1.8-7.8); Neutrophils % 57.5 % (37.0-80.0); Platelet Count 172 K/mm3 (142-424); Red Blood Count 4.84 M/mm3 (4.60-6.20); Red Cell Distribution Width 14.5 % (11.5-17.5); White Blood Count 5.5 K/mm3 (4.8-10.8)
[2023-10-04 21:30] VITALS: BP 126/79; PULSE 66; O2SAT 94
[2023-10-04 21:32] LABS: Chloride 106 mmol/L (98-107); Sodium 139 mmol/L (136-145)
[2023-10-04 21:35] LABS: Blood Urea Nitrogen 11 mg/dl (9-20); Calcium 9.1 mg/dl (8.4-10.2); Carbon Dioxide 30 mmol/L (22.0-30.0); Creatinine Clearance Estimated 98 mL/min (50-200); Estimated Glomerular Filt Rate 84 ml/min (>60); GFR (African American) 102 ML/MIN (>60); Glucose 133 mg/dl (74-100)
[2023-10-04 22:05] VITALS: BP 132/75; PULSE 67; RESP 20; TEMP 36.7; O2SAT 95
== END 2023-10-04 22:06 | disposition home or self-care (01) ==
PROVIDERS: Physician Assistant; Emergency Provider Student in an Organized Health Care Education/Training Program; PCP Family Medicine
DX: M54.50 Low back pain, unspecified (principal); K21.9 Gastro-esophageal reflux disease without esophagitis; I11.9 Hypertensive heart disease without heart failure; I25.119 Atherosclerotic heart disease of native coronary artery with unspecified angina pectoris; E78.5 Hyperlipidemia, unspecified; Z95.5 Presence of coronary angioplasty implant and graft
CPT/HCPCS: 72131; 72192; 80048; 85025; 96374; 96375; 99285; J0131

== ENCOUNTER 2024-03-23 04:08 | Emergency (ER) | payer BC, MEDICARE, SELFPAY ==
[2024-03-23] VITALS (8 sets, daily range): BP systolic 107–189; BP diastolic 68–99; PULSE 53–69; RESP 12–16; TEMP 36.4–36.7; O2SAT 94–99; BMI 30.9
--- NOTE | 2024-03-23 04:06 | ECG_ITS ---
APPROVED REPORT Exam: Resting ECG HR:60 bpm ECG Measurements Heart Rate [address] 144 P 52 QRSd 110 QRS -15 QT 393 T 50 QTc 393 Conclusion SINUS RHYTHM INCOMPLETE RIGHT BUNDLE BRANCH BLOCK [90+ ms QRS DURATION, TERMINAL R IN V1/V2, 40+ ms S IN I/aVL/V4/V5/V6] BORDERLINE ECG UNCONFIRMED REPORT Electronically signed by : EDDIE NEVAREZ, 03/25/2024 06:06:57
--- NOTE | 2024-03-23 04:12 | XR_ITS ---
PROCEDURE INFORMATION: Exam: XR Chest Exam date and time: 03/23/2024 4:20 AM Age: 69 years old Clinical indication: Pain; Chest pressure; Additional info: Cp TECHNIQUE: Imaging protocol: Radiologic exam of the chest. Views: 1 view. COMPARISON: CR XR CHEST PORTABLE 07/09/2023 2:00 PM FINDINGS: Lungs: Basilar scarring/atelectasis. Pleural spaces: Unremarkable. No pleural effusion. No pneumothorax. Heart/Mediastinum: Unremarkable. No cardiomegaly. Bones/joints: Sternotomy. Degenerative change of the visualized osseous structures. IMPRESSION: No acute cardiopulmonary findings.
--- NOTE | 2024-03-23 04:14 | ED_ITS ---
Discharge Plan Disposition Patient Disposition: Home, Self-Care Condition: Good Prescriptions Prescriptions: No Action aspirin [Adult Low Dose Aspirin] 81 mg tablet,delayed release (DR/EC) 81 mg PO DAILY duloxetine 60 mg capsule,delayed release(DR/EC) 60 mg PO DAILY pantoprazole 40 mg tablet,delayed release (DR/EC) 40 mg PO DAILY Qty: 14 0RF rosuvastatin 40 mg tablet 40 mg PO DAILY Qty: 90 3RF amlodipine 2.5 mg tablet See Rx Instructions .ROUTE .COMPLEX Qty: 90 3RF Dose Instruction: TAKE 1 TABLET BY MOUTH ONCE DAILY Rx Instructions: TAKE 1 TABLET BY MOUTH ONCE DAILY clopidogrel 75 mg tablet See Rx Instructions .ROUTE .COMPLEX Qty: 90 2RF Dose Instruction: TAKE 1 TABLET BY MOUTH ONCE DAILY Rx Instructions: TAKE 1 TABLET BY MOUTH ONCE DAILY nitroglycerin 0.4 mg tablet, sublingual See Rx Instructions .ROUTE .COMPLEX Qty: 25 3RF Dose Instruction: PLACE 1 TABLET UNDER TONGUE NEEDED FOR CHEST PAIN MAY REPEAT EVERY 5 MINUTES (MAX OF 3 TABS/15 MINUTES) Rx Instructions: PLACE 1 TABLET UNDER TONGUE NEEDED FOR CHEST PAIN MAY REPEAT EVERY 5 MINUTES (MAX OF 3 TABS/15 MINUTES) metoprolol tartrate 50 mg tablet See Rx Instructions .ROUTE .COMPLEX Qty: 180 1RF Dose Instruction: TAKE 1 TABLET BY MOUTH TWICE DAILY Rx Instructions: TAKE 1 TABLET BY MOUTH TWICE DAILY lidocaine 5 % adhesive patch,medicated 1 patch topical DAILY Qty: 30 0RF Rx Instructions: leave on most painful area for up to 12 hrs methocarbamol 750 mg tablet 750 mg PO Q6H PRN (Reason: muscle spasm) Qty: 10 0RF prednisone 50 mg tablet 50 mg PO DAILY 5 Days Qty: 5 0RF Referrals Follow up/Referrals: Provider,Referral, MD [Primary Care Provider] - See instructions Activity Restrictions/Add. 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 Please return with any new or worsening symptoms. Clinical Impressions Clinical Impression: Acute chest pain Instructions Patient Instructions: DI for Chest Pain Print Language Print Language: Micronesian Discharge ED Provider: Arsh Sadler Adult HPI General Chief complaint: Chest Pain Stated complaint: Chest pain Time Seen by Provider: 03/23/24 04:10 History of Present Illness HPI narrative: 69-year-old male with history of hypertension, coronary artery disease status post CABG and stents presents for chest pain. He reports it started around 10 PM and has been worsening. He characterizes it as a pressure sensation with associated nausea. He did not take any nitro at home. Denies any shortness of breath. Related Data Home Medications ?Medication ?Instructions ?Recorded ?Confirmed aspirin 81 mg tablet,delayed 81 mg PO DAILY HEART HEALTH 07/12/17 03/22/24 release (Adult Low Dose Aspirin) duloxetine 60 mg capsule,delayed 60 mg PO DAILY Depression 11/27/19 03/22/24 release Previous Rx's ?Medication ?Instructions ?Recorded pantoprazole 40 mg tablet,delayed 40 mg PO DAILY #14 tabs 08/15/23 release rosuvastatin 40 mg tablet 40 mg PO DAILY #90 tabs 09/15/23 lidocaine 5 % topical patch 1 patch topical DAILY #30 ea 10/04/23 methocarbamol 750 mg tablet 750 mg PO Q6H PRN muscle spasm #10 10/04/23 tabs prednisone 50 mg tablet 50 mg PO DAILY 5 days #5 tabs 10/04/23 amlodipine 2.5 mg tablet See Rx Instructions .Route 11/16/23 .COMPLEX #90 tabs clopidogrel 75 mg tablet See Rx Instructions .Route 11/16/23 .COMPLEX #90 tabs nitroglycerin 0.4 mg sublingual See Rx Instructions .Route 12/19/23 tablet .COMPLEX #25 ea metoprolol tartrate 50 mg tablet See Rx Instructions .Route 02/16/24 .COMPLEX #180 tabs Allergies Allergy/AdvReac Type Severity Reaction Status Date / Time ranolazine [From Ranexa] AdvReac Severe Verified 03/22/24 13:15 isosorbide AdvReac Intermediate headache Verified 03/22/24 13:15 [facility] Disclaimer: The information contained in this section may have been updated after the patient was seen, as this information can be updated by other users. Medical History Dyspnea Unstable angina Sinus bradycardia SHERLEY (obstructive sleep apnea) Gastroesophageal reflux disease Restless sleeper Daytime somnolence Diastolic dysfunction Angina, class III HLD (hyperlipidemia) HHD (hypertensive heart disease) CAD (coronary artery disease) Other forms of angina pectoris Surgical History Stented coronary artery Social History Smoking Status: Never smoker second hand exposure: No alcohol intake: never substance use type: denies use current occupational status: employed Travel in the last 8 weeks: Inside the [place] household members: spouse housing: house current occupation: [employer] current occupational exposures/hazards: No caffeine: Yes Other Medical History Have you received the Flu Vaccine for this season: Yes Have you received the Pneumonia Vaccine: No ROS Obtained: Yes All systems reviewed & no additional complaints except as documented Physical Exam General General appearance: alert Comment: Uncomfortable appearing Head Head exam: atraumatic and normocephalic Eye Eye exam: Present normal appearance, PERRL and EOMI ENT ENT exam: Present normal oropharynx and normal external ear exam Neck Neck exam: Present normal inspection and full ROM Chest Chest inspection: Present normal inspection and symmetric chest wall rise; Absent tenderness Respiratory Respiratory exam: Present normal lung sounds bilaterally; Absent respiratory distress Cardiovascular Cardiovascular exam: Present regular rate and normal rhythm Abdominal Exam Abdominal exam: Present soft; Absent distention, tenderness or guarding Extremities Exam Extremities exam: Present normal inspection; Absent edema or joint swelling Back Exam Back exam: Present normal inspection; Absent tenderness Neurological Exam Neurological exam: Present alert and oriented X3; Absent motor sensory deficit Psychiatric Psychiatric exam: Present normal affect and normal mood Skin Skin exam: Present warm, dry, normal color and other (Sternotomy scar noted) Lymphatic Lymphatic Findings: no adenopathy Medical Decision Making Medical Records Medical records reviewed: Yes I reviewed the patient's medical records. Screening: Per USPSTF and CDC recommendations, given the prevalence of disease in our region, it is our hospital?s policy to screen for HIV and viral Hepatitis for all patients aged 18 and over and those with ongoing risk factors. Baljit Inquiry Pt receiving controlled substance: No Baljit was queried for this patient: No Vital Signs: 03/23/24 04:08 03/23/24 04:12 03/23/24 04:17 Temperature 97.5 F L Temperature Source Oral Pulse Rate 63 61 Pulse Rate [Apical] 60 Respiratory Rate 13 16 12 Blood Pressure 174/97 H 159/85 H Blood Pressure [Right Arm] 189/99 H Blood Pressure Mean [Right Arm] 129 Blood Pressure Source Blood Pressure Source [Right Arm] Automatic Cuff Blood Pressure Position [Right Arm] Sitting 02 Sat by Pulse Oximetry 99 97 97 Oxygen Delivery Method Room Air 03/23/24 04:20 03/23/24 04:29 03/23/24 04:31 Temperature Temperature Source Pulse Rate 60 53 L 54 L Pulse Rate [Apical] Respiratory Rate 15 13 Blood Pressure 107/68 L 118/72 Blood Pressure [Right Arm] Blood Pressure Mean [Right Arm] Blood Pressure Source Blood Pressure Source [Right Arm] Blood Pressure Position [Right Arm] 02 Sat by Pulse Oximetry 97 96 Oxygen Delivery Method 03/23/24 04:42 03/23/24 07:50 Temperature 98.0 F Temperature Source Oral Pulse Rate 55 L 69 Pulse Rate [Apical] Respiratory Rate 12 16 Blood Pressure 131/78 132/78 Blood Pressure [Right Arm] Blood Pressure Mean [Right Arm] Blood Pressure Source Automatic Cuff Blood Pressure Source [Right Arm] Blood Pressure Position [Right Arm] 02 Sat by Pulse Oximetry 94 L Oxygen Delivery Method Room Air Lab Data Lab results reviewed: Yes I reviewed the patient's lab results. Lab Results 03/23/24 04:10: WBC 4.3 L, RBC 5.45, Hgb 17.0, Hct 49.3, MCV 90.5, MCH 31.2, MCHC 34.5, RDW 14.5, Plt Count 159, MPV 8.5, Neut % (Auto) 59.7, Lymph % (Auto) 26.8, [place] % (Auto) 7.2, Eos % (Auto) 4.9, Baso % (Auto) 1.3, Neut # (Auto) 2.5, Lymph # (Auto) 1.1, [place] # (Auto) 0.3, Eos # (Auto) 0.2, Baso # (Auto) 0.1, D- Dimer 0.33, Sodium 140, Potassium 4.5, Chloride 107, Carbon Dioxide 31 H, Anion Gap 6.5, BUN 14, Creatinine 0.90, Estimated Creat Clear 98, Estimated GFR 84, Est GFR ( Amer) 102, Glucose 135 H, Calcium 10.6 H, Total Bilirubin 0.9, AST 58, ALT 69, Alkaline Phosphatase 73, Troponin I < 0.01, NT-Pro-B Natriuret Pep < 20.0, Total Protein 7.5, Albumin 4.5, Globulin 3.0, Albumin/Globulin Ratio 1.5, HIV 1&2 Antibody Rapid Nonreactive 03/23/24 06:59: Troponin I < 0.01 03/23/24 04:10 03/23/24 04:10 Orders (Tests/Meds): ED MEDICATIONS Discontinued Medications Generic Name Dose Route Start Last Admin Trade Name Freq PRN Reason Stop Dose Admin Acetaminophen 1,000 mg 03/23/24 04:14 03/23/24 04:18 Acetaminophen 500mg Tab PO 03/23/24 04:15 1,000 mg ONCE ONE Administration Aspirin 324 mg 03/23/24 04:11 03/23/24 04:18 Aspirin 81mg Chewable Tablet PO 03/23/24 04:12 324 mg ONCE ONE Administration Belladonna Alkaloids 60 ml 03/23/24 04:14 03/23/24 04:19 Belladonna Alkaloids 60 Ml Ml PO 03/23/24 04:15 60 ml ONCE ONE Administration Nitroglycerin 0.4 mg 03/23/24 04:11 03/23/24 04:19 Nitroglycerin 0.4mg Sl Tablet SL 04/22/24 04:10 0.4 mg Q5MINP PRN Administration Chest Pain Ondansetron HCl 4 mg 03/23/24 04:14 03/23/24 04:19 Ondansetron 4mg/2ml Vial IV 03/23/24 04:15 4 mg ONCE ONE Administration ORDERS Category Date Time Status CXR --portable [XR chest portable] Stat Exams 03/23/24 04:12 Completed BNP [NT Pro Brain Natriuretic Pep.] Stat Lab 03/23/24 04:10 Completed CBC w/Auto Diff [Complete Blood Count Auto Diff] Stat Lab 03/23/24 04:10 Completed CMP [Comprehensive Metabolic Panel] Stat Lab 03/23/24 04:10 Completed D-Dimer Stat Lab 03/23/24 04:10 Completed HIV (1&2) Antibody Rapid Stat Lab 03/23/24 04:10 Completed Hep C Ab with Reflex to RNA Stat Lab 03/23/24 04:10 Received Troponin I Q3H Lab 03/23/24 04:10 Completed Troponin I Q3H Lab 03/23/24 06:59 Completed ECG Data Tracing #1: I reviewed this ECG and interpreted as documented below: Sinus rhythm, ventricular rate of 60, incomplete right bundle branch block stable prior, Q waves in lead III and aVF stable from prior. ECG initial impression date: 03/23/24 ECG initial impression time: 04:06 ECG normal with no acute: arrhythmias, ischemia, conduction abnormalities, chamber hypertrophy Tracing #2: I reviewed this ECG and interpreted as documented below: Sinus bradycardia with ventricular rate of 56, no significant ST elevation, no T wave changes, stable Q waves in the inferior leads. ECG initial impression date: 03/23/24 ECG initial impression time: 04:32 HEART Score History (anamnesis): Moderately suspicious ECG: Normal Age: >65 years Risk factors: Atherosclerosis history Troponin: </= normal limit HEART Score: 5 Medical Decision Narrative: 69-year-old male with history of coronary artery disease status post stents and CABG, hypertension, hyperlipidemia presents for chest pressure and nausea for several hours. History was obtained via interactive discussion with patient, family, chart review. On arrival, patient is afebrile, hypertensive, satting appropriately on room air, alert and oriented, moving all extremities spontaneously. Full physical exam performed and significant for no significant lower extremity edema, clear lungs bilaterally. Differential includes but is not limited to ACS, PE, hypertensive emergency, esophageal spasm, musculoskeletal chest pain, GERD. Patient was given full dose aspirin and sublingual nitro as well as Tylenol, Zofran, GI cocktail for symptomatic management and correction of underlying abnormalities. These resulted in resolution of patient's chest pain and normalization of the patient's blood pressure. Workup initiated including CBC CMP troponin EKG D-dimer chest x-ray. Initial EKG shows no concerning ST or T wave changes. Repeat EKG stable. On re-evaluation, patient [remains afebrile, HD stable.] Sleeping comfortably, denies nausea or chest pain. Laboratory workup independently interpreted by me and significant for initial troponin undetectably low, normal renal function, mild hypercalcemia. Imaging independently interpreted by me and significant for clear lungs bilaterally. See radiology read for full review of final results. Patient was placed in ED observation for serial troponins and cardiac monitoring to assess need for admission. At this time care was handed off to oncoming physician. Procedures Risk/Benefits of Procedure(s) Were Explained: Yes Critical Care Critical Care Time Critical Care Time: No
[2024-03-23] MEDS: ACETAMINOPHEN 500MG TAB 1000 MG PO (04:18)
[2024-03-23] MEDS: ASPIRIN 81MG CHEWABLE TABLET 324 MG PO (04:18)
[2024-03-23] MEDS: BELLADONNA ALKALOIDS 60 ML ML PO (04:19)
[2024-03-23] MEDS: ONDANSETRON 4MG/2ML VIAL 4 MG IV (04:19)
[2024-03-23] MEDS: NITROGLYCERIN 0.4MG SL TABLET 0.4 MG SL (04:19)
[2024-03-23 04:21] LABS: Basophils # 0.1 K/mm3 (0-0.2); Basophils % 1.3 % (0.1-2.0); Eosinophils # 0.2 K/mm3 (0.0-0.4); Eosinophils % 4.9 % (0.1-12.0); Hematocrit 49.3 % (42.0-52.0); Lymphocytes # 1.1 K/mm3 (0.7-4.5); Lymphocytes % 26.8 % (10-50); Mean Corpuscular HGB Conc 34.5 g/dL (31.8-35.4); Mean Corpuscular Hemoglobin 31.2 pg (27.0-31.2); Mean Corpuscular Volume 90.5 fl (80-94); Mean Platelet Volume 8.5 fl (7.4-10.4); Monocytes # 0.3 K/mm3 (0.1-1.0); Monocytes % 7.2 % (1.7-9.3); Neutrophils # 2.5 K/mm3 (1.8-7.8); Neutrophils % 59.7 % (37.0-80.0); Platelet Count 159 K/mm3 (142-424); Red Blood Count 5.45 M/mm3 (4.60-6.20); Red Cell Distribution Width 14.5 % (11.5-17.5); White Blood Count 4.3 K/mm3 (4.8-10.8)
--- NOTE | 2024-03-23 04:24 | PC.NURSE ---
pt reports slight chest pain relief after nitro
[2024-03-23 04:31] LABS: Alanine Aminotransferase 69 U/L (12-78); Albumin Level 4.5 g/dl (3.5-5.0); Albumin/Globulin Ratio 1.5 (1.1-1.8); Alkaline Phosphatase 73 U/L (38-126); Anion Gap 6.5 mEq/L (5-15); Aspartate Amino Transferase 58 U/L (17-59); Bilirubin,Total 0.9 mg/dl (0.2-1.3); Blood Urea Nitrogen 14 mg/dl (9-20); Calcium 10.6 mg/dl (8.4-10.2); Carbon Dioxide 31 mmol/L (22.0-30.0); Chloride 107 mmol/L (98-107); Creatinine Clearance Estimated 98 mL/min (50-200); Estimated Glomerular Filt Rate 84 ml/min (>60); GFR (African American) 102 ML/MIN (>60); Glucose 135 mg/dl (74-100); Potassium 4.5 mmoL/L (3.5-5.1); Sodium 140 mmol/L (136-145); Total Protein,Serum 7.5 g/dl (6.3-8.2)
--- NOTE | 2024-03-23 04:31 | ECG_ITS ---
APPROVED REPORT Exam: Resting ECG HR:56 bpm ECG Measurements Heart Rate 56 AXES IA 145 P 60 QRSd 99 QRS -7 QT 401 T 45 QTc 393 Conclusion SINUS BRADYCARDIA POSSIBLE RIGHT VENTRICULAR CONDUCTION DELAY [RSR (QR) IN V1/V2] ABNORMAL ECG UNCONFIRMED REPORT Electronically signed by : EDDIE NEVAREZ, 03/25/2024 06:07:06
[2024-03-23 04:35] LABS: D-Dimer 0.33 ug/mL (0.0-0.5)
[2024-03-23 04:43] LABS: NT Pro Brain Natriuretic Pep. < 20.0 pg/mL (0-125)
[2024-03-23 04:44] LABS: Troponin I < 0.01 ng/ml (0.00-0.034)
--- NOTE | 2024-03-23 04:44 | PC.NURSE ---
0424- Dev in radiology came from pts room stating pts color was not good and that pt told him he felt like he did when he had heart blockages. This RN and Yaniv Valero RN to bedside. Pt reports his pain was worse , and he felt terrible. Pt sitting on side of bed leaning over at that time, pts skin appeared to be pale/ashy. Pt moved back into supine position and a 2nd EKG was performed and interpreted by MD Wagner. MD Wagner notified of this event, and pts BP dropping from 189/99 upon arrival to 107/68 at time of event. Pts heart rate at this time was 53. 2nd nitro held for CP due to significant change in BP. Approx. 5 mins after EKG pts color appeared to be more pink and pts SBP increased to 118, then 131.
[2024-03-23 04:47] LABS: HIV (1&2) Antibody Rapid NONREACTIVE (NONREACTIVE)
--- NOTE | 2024-03-23 06:44 | PC.NURSE ---
pt asleep in bed
--- NOTE | 2024-03-23 07:03 | PC.NURSE ---
2nd trop sent to lab
[2024-03-23 07:37] LABS: Troponin I < 0.01 ng/ml (0.00-0.034)
[2024-03-24 08:28] LABS: HCV Ab Non Reactive (Non Reactive)
== END 2024-03-23 07:55 | disposition home or self-care (01) ==
PROVIDERS: Emergency Medicine; Emergency Provider Emergency Medicine
DX: R07.9 Chest pain, unspecified (principal); R11.0 Nausea
CPT/HCPCS: 71045; 80053; 83880; 84484; 85025; 85378; 86803; 87389; 93005; 96374; 99284; J2405

== ENCOUNTER 2024-03-30 09:02 | Day surgery (SDC) | payer BC, MEDICARE, SELFPAY ==
[2024-03-30] VITALS (10 sets, daily range): BP systolic 114–154; BP diastolic 70–97; PULSE 58–78; RESP 14–20; O2SAT 93–96; BMI 29.6
--- NOTE | 2024-03-30 07:08 | IR_ITS ---
APPROVED REPORT Patient Location: Outpatient PROCEDURES Left heart catheterization Left ventriculogram Selective coronary angiogram Selective engagement left internal mammary artery Catheter placement in the right subclavian artery Right subclavian artery antegrade angiogram Drug-eluting stent deployment to the mid left main artery extending into the proximal LAD INDICATION Coronary artery disease, Accelerated angina pectoris, Coronary bypass surgery, Ineffective bypass grafting to the coronary arteries Informed consent was obtained prior to the procedure. COMPLICATIONS none Estimated Blood Loss: less than 10ml TECHNIQUE One percent lidocaine was used to anesthetize the right groin. The right femoral artery was accessed via the Seldinger technique. A 5-Bengali sheath was placed in the right femoral artery. The JL-4 and JR-4 catheter was also used to perform left heart catheterization left ventriculogram and selective coronary angiogram. JR4 catheter was used to perform selective left internal mammary angiography. The same catheter was placed in the right subclavian artery right subclavian artery angiography was performed. At the end the diagnostic angiogram therapeutic heparin was administered giving a therapeutic ACT and the 5 Bengali sheath was exchanged for a 6 Bengali sheath. A JL 4 guide catheter was placed in the left main artery followed by Choice PT extra-support wire down the LAD. A 3.5 x 18 mm Cooper frontier stent was deployed at 20 barbra in the mid left main artery extending to the proximal LAD reducing the stenosis to 0%. Improved antegrade flow was present after the procedure. After achieving excellent angiographic results the apparatus was removed the groin is reprepped closure change sheath was removed and hemostasis was achieved using Perclose device patient was transferred to the postop putting in stable condition ANGIOGRAPHIC RESULTS The left main artery Is widely patent The left anterior descending artery Has an ostial 70% stenosis with stents in the midportion which are widely patent. There is additional 50% stenosis in the mid LAD. There is scant collateral flow to the distal LAD. A large first diagonal artery is present and has 30% stenoses in the proximal portion of the mid vessel 40% stenosis. Competitive flow is identified from the free ZAK off the BOONE graft onto the mid diagonal artery The circumflex artery Is a nondominant yet still large vessel giving rise to a large obtuse marginal artery. There is mid vessel 30% stenosis with a 40% concentric stenosis in the proximal first obtuse marginal artery The right coronary artery Is a dominant vessel and has stents in the proximal to mid segment which are widely patent with mild in-stent restenosis. Distally there is an eccentric 30% stenosis The BRANDT ventriculogram reveals Normal 60% The left ventricular end-diastolic pressure 10 mmHg BOONE to LAD is small but patent with scant antegrade flow down the BOONE graft. A ZAK graft tease off the distal BOONE graft and then makes an anastomosis onto a large first diagonal artery. There is better antegrade flow into the first diagonal artery than the BOONE to the LAD Right subclavian artery widely patent IMPRESSION Coronary disease as described above Poor antegrade flow from the BOONE and ZAK graft Successful stenting of the mid left main artery extending to the proximal LAD severe disease reduced to 0% with 1 drug-eluting stent Normal ejection fraction Normal LVEDP PLAN 1. Dual antiplatelet therapy 2. Cardiac rehabilitation 3. Avoidance of tobacco products 4. Risk factor modification 5. LDL less than 55 to be achieved with high intensity statin Electronically signed by : Oscar Tirado MD 03/30/2024 14:19:06
[2024-03-30 09:21] LABS: Basophils # 0.1 K/mm3 (0-0.2); Basophils % 1.4 % (0.1-2.0); Eosinophils # 0.2 K/mm3 (0.0-0.4); Hematocrit 44.5 % (42.0-52.0); Hemoglobin 15.2 g/dL (14.1-18.0); Lymphocytes # 1.2 K/mm3 (0.7-4.5); Lymphocytes % 27.8 % (10-50); Mean Corpuscular HGB Conc 34.2 g/dL (31.8-35.4); Mean Corpuscular Hemoglobin 30.8 pg (27.0-31.2); Mean Platelet Volume 8.4 fl (7.4-10.4); Monocytes # 0.3 K/mm3 (0.1-1.0); Monocytes % 7.5 % (1.7-9.3); Neutrophils # 2.5 K/mm3 (1.8-7.8); Neutrophils % 58.2 % (37.0-80.0); Platelet Count 148 K/mm3 (142-424); Red Blood Count 4.95 M/mm3 (4.60-6.20); Red Cell Distribution Width 14.1 % (11.5-17.5); White Blood Count 4.3 K/mm3 (4.8-10.8)
[2024-03-30 09:42] LABS: Chloride 106 mmol/L (98-107); Sodium 139 mmol/L (136-145)
[2024-03-30 09:43] LABS: Potassium 4.1 mmoL/L (3.5-5.1)
[2024-03-30 09:45] LABS: Blood Urea Nitrogen 10 mg/dl (9-20); Creatinine Clearance Estimated 98 mL/min (50-200); Estimated Glomerular Filt Rate 84 ml/min (>60); GFR (African American) 102 ML/MIN (>60)
[2024-03-30 09:46] LABS: Anion Gap 8.1 mEq/L (5-15); Calcium 8.7 mg/dl (8.4-10.2); Carbon Dioxide 29 mmol/L (22.0-30.0); Glucose 128 mg/dl (74-100)
[2024-03-30] MEDS: 0.9 % SODIUM CHLORIDE 500 ML 25 ML IV (12:20)
[2024-03-30] MEDS: diphenhydrAMINE 50MG/ML VIAL 50 MG IV (12:20)
[2024-03-30] MEDS: LIDOCAINE 1% 10ML MDV 20 ML IJ (12:20)
[2024-03-30] MEDS: HEPARIN 1,000 UNITS/500ML NS (CATH LAB) 3000 UNIT IV (12:26)
[2024-03-30] MEDS: HEPARIN 1,000 UNITS/ML 10ML VIAL (CATH LAB) 10000 UNIT IV (13:00)
[2024-03-30] MEDS: FENTANYL 100MCG/2ML VIAL 50 MCG IV (13:07)
[2024-03-30] MEDS: MIDAZOLAM HCL 1MG/ML 5ML VIAL 1 MG IV (13:07)
[2024-03-30] MEDS: IOPAMIDOL-370 (76%);100ML BOTTLE 110 ML IV (14:52)
[2024-03-30 14:56] LABS: CATHL Activated Clotting Time 315 SEC (74-125)
== END 2024-03-30 15:41 | disposition home or self-care (01) ==
PROVIDERS: PCP Family Medicine; Visit Provider Internal Medicine
DX: I25.110 Atherosclerotic heart disease of native coronary artery with unstable angina pectoris (principal); I11.9 Hypertensive heart disease without heart failure; R94.31 Abnormal electrocardiogram [ECG] [EKG]; Z95.1 Presence of aortocoronary bypass graft; Z79.899 Other long term (current) drug therapy
CPT/HCPCS: 36225; 36415; 80048; 85025; 85347; 92928; 93459; 99152; 99153; C1725; C1760; C1769; C1874; C1894; C9600; J1200; J1644; J2250; J3010; Q9967

== ENCOUNTER 2024-04-03 10:42 | Outpatient (CLI) | payer BC, MEDICARE, SELFPAY ==
[2024-04-03 11:21] LABS: Basophils # 0.1 K/mm3 (0-0.2); Eosinophils # 0.2 K/mm3 (0.0-0.4); Eosinophils % 4.3 % (0.1-12.0); Hematocrit 44.1 % (42.0-52.0); Hemoglobin 14.9 g/dL (14.1-18.0); Lymphocytes # 1.3 K/mm3 (0.7-4.5); Lymphocytes % 28.8 % (10-50); Mean Corpuscular HGB Conc 33.8 g/dL (31.8-35.4); Mean Corpuscular Hemoglobin 30.4 pg (27.0-31.2); Mean Corpuscular Volume 89.8 fl (80-94); Mean Platelet Volume 8.5 fl (7.4-10.4); Monocytes # 0.4 K/mm3 (0.1-1.0); Monocytes % 8.7 % (1.7-9.3); Neutrophils # 2.6 K/mm3 (1.8-7.8); Neutrophils % 57.1 % (37.0-80.0); Platelet Count 168 K/mm3 (142-424); Red Blood Count 4.91 M/mm3 (4.60-6.20); Red Cell Distribution Width 14.2 % (11.5-17.5); White Blood Count 4.5 K/mm3 (4.8-10.8)
[2024-04-03 12:34] LABS: Chloride 103 mmol/L (98-107); Potassium 4.4 mmoL/L (3.5-5.1); Sodium 137 mmol/L (136-145)
[2024-04-03 12:37] LABS: Anion Gap 11.4 mEq/L (5-15); Blood Urea Nitrogen 12 mg/dl (9-20); Calcium 8.7 mg/dl (8.4-10.2); Carbon Dioxide 27 mmol/L (22.0-30.0); Estimated Glomerular Filt Rate 84 ml/min (>60); GFR (African American) 102 ML/MIN (>60); Glucose 116 mg/dl (74-100)
== END 2024-04-03 23:59 | disposition home or self-care (01) ==
LOC: LAB 10:46
PROVIDERS: PCP Family Medicine; Visit Provider Internal Medicine
DX: I25.10 Atherosclerotic heart disease of native coronary artery without angina pectoris (principal)
CPT/HCPCS: 36415; 80048; 85025

== ENCOUNTER 2024-05-09 14:15 | Outpatient (CLI) | payer BC, MEDICARE, SELFPAY ==
[2024-05-09 14:30] LABS: Basophils # 0.1 K/mm3 (0-0.2); Basophils % 1.1 % (0.1-2.0); Eosinophils # 0.2 K/mm3 (0.0-0.4); Eosinophils % 3.5 % (0.1-12.0); Hematocrit 43.6 % (42.0-52.0); Hemoglobin 14.9 g/dL (14.1-18.0); Lymphocytes # 1.7 K/mm3 (0.7-4.5); Lymphocytes % 29.9 % (10-50); Mean Corpuscular HGB Conc 34.2 g/dL (31.8-35.4); Mean Corpuscular Hemoglobin 30.5 pg (27.0-31.2); Mean Platelet Volume 8.4 fl (7.4-10.4); Monocytes # 0.4 K/mm3 (0.1-1.0); Monocytes % 6.8 % (1.7-9.3); Neutrophils # 3.3 K/mm3 (1.8-7.8); Neutrophils % 58.6 % (37.0-80.0); Platelet Count 154 K/mm3 (142-424); Red Cell Distribution Width 14.5 % (11.5-17.5); White Blood Count 5.7 K/mm3 (4.8-10.8)
[2024-05-09 15:11] LABS: Albumin Level 4.2 g/dl (3.5-5.0); Chloride 105 mmol/L (98-107)
[2024-05-09 15:12] LABS: Potassium 4.3 mmoL/L (3.5-5.1); Sodium 139 mmol/L (136-145)
[2024-05-09 15:14] LABS: Alanine Aminotransferase 55 U/L (12-78); Anion Gap 10.3 mEq/L (5-15); Aspartate Amino Transferase 52 U/L (17-59); Bilirubin,Unconjugated 0.6 mg/dL (0.0-1.1); Blood Urea Nitrogen 13 mg/dl (9-20); Carbon Dioxide 28 mmol/L (22.0-30.0); Cholesterol 113 mg/dl (140-200); Estimated Glomerular Filt Rate 74 ml/min (>60); GFR (African American) 90 ML/MIN (>60); Total Protein,Serum 6.4 g/dl (6.3-8.2); Triglycerides 194 mg/dl (30-150); VLDL Cholesterol 39 mg/dL (0-40)
[2024-05-09 15:15] LABS: Alkaline Phosphatase 70 U/L (38-126); Bilirubin,Direct 0.3 mg/dl (0.0-0.4); Bilirubin,Indirect 0.6 mg/dL (0.0-0.9); Bilirubin,Total 0.9 mg/dl (0.2-1.3); Calcium 9.3 mg/dl (8.4-10.2); Chol/HDL Ratio 3.8 (1-3.5); Glucose 89 mg/dl (74-100); HDL Cholesterol 30 mg/dl (40-60)
[2024-05-09 15:26] LABS: Direct LDL Cholesterol 57.97 mg/dL (100-129)
[2024-05-09 15:30] LABS: Free T4 (Free Thyroxine) 0.73 ng/dl (0.78-2.19)
== END 2024-05-09 23:59 | disposition home or self-care (01) ==
PROVIDERS: PCP Family Medicine; Visit Provider Internal Medicine
DX: I25.10 Atherosclerotic heart disease of native coronary artery without angina pectoris (principal); I11.9 Hypertensive heart disease without heart failure; E78.2 Mixed hyperlipidemia; I51.9 Heart disease, unspecified; R40.0 Somnolence; G47.9 Sleep disorder, unspecified; Z95.1 Presence of aortocoronary bypass graft; R00.1 Bradycardia, unspecified; Z95.5 Presence of coronary angioplasty implant and graft; R94.31 Abnormal electrocardiogram [ECG] [EKG]
CPT/HCPCS: 36415; 80048; 80061; 80076; 84439; 84443; 85025

== ENCOUNTER 2024-09-28 19:32 | Emergency (ER) | payer BC, MEDICARE, SELFPAY ==
[2024-09-28] VITALS (8 sets, daily range): BP systolic 111–143; BP diastolic 68–82; PULSE 56–72; RESP 16; TEMP 36.6–36.7; O2SAT 93–98; BMI 30.1
--- NOTE | 2024-09-28 19:56 | CT_ITS ---
PROCEDURE INFORMATION: Exam: CT Pelvis Without Contrast, Skeleton Exam date and time: 09/28/2024 8:13 PM Age: 69 years old Clinical indication: Injury or trauma; Fall; Other: Pain; Additional info: Fall, low back/l hip/leg pain, diff. Lifting lle TECHNIQUE: Imaging protocol: Computed tomography of the pelvis without contrast. Exam focused on the skeleton. Radiation optimization: All CT scans at this facility use at least one of these dose optimization techniques: automated exposure control; mA and/or kV adjustment per patient size (includes targeted exams where dose is matched to clinical indication); or iterative reconstruction. COMPARISON: CT BONY PELVIS 10/04/2023 8:51 PM FINDINGS: Bones/joints: Moderate to moderately severe degenerative changes of right hip. Moderate degenerative changes of left hip. Moderate degenerative changes of both sacroiliac joints. No acute fracture. No dislocation. Soft tissues: Unremarkable. IMPRESSION: No acute findings.
--- NOTE | 2024-09-28 19:56 | XR_ITS ---
PROCEDURE INFORMATION: Exam: XR Left Knee Exam date and time: 09/28/2024 8:16 PM Age: 69 years old Clinical indication: Injury or trauma; Fall; Other: Pain; Additional info: Fall, low back/l hip/leg pain, diff. Lifting lle TECHNIQUE: Imaging protocol: Radiologic exam of the left knee. Views: 3 views. COMPARISON: CR XR FEMUR LT 2V 09/28/2024 8:16 PM FINDINGS: Bones/joints: No acute fracture. Normal alignment. No effusion. [id number] degenerative changes. Osteopenia. Soft tissues: Unremarkable. IMPRESSION: No acute findings.
--- NOTE | 2024-09-28 19:56 | CT_ITS ---
PROCEDURE INFORMATION: Exam: CT Lumbar Spine Without Contrast Exam date and time: 09/28/2024 8:10 PM Age: 69 years old Clinical indication: Injury or trauma; Fall; Other: Pain; Additional info: Fall, low back/l hip/leg pain, diff. Lifting lle TECHNIQUE: Imaging protocol: Computed tomography of the lumbar spine without contrast. Radiation optimization: All CT scans at this facility use at least one of these dose optimization techniques: automated exposure control; mA and/or kV adjustment per patient size (includes targeted exams where dose is matched to clinical indication); or iterative reconstruction. COMPARISON: CT LUMBAR SPINE WO CON 10/04/2023 8:48 PM FINDINGS: Bones/joints: No acute fracture. Normal alignment. Multilevel mild moderate degenerative disc and joint space changes. Vertebral body heights grossly preserved. Osteopenia. Soft tissues: Unremarkable. IMPRESSION: No acute findings.
--- NOTE | 2024-09-28 19:56 | CT_ITS ---
PROCEDURE INFORMATION: Exam: CT Cervical Spine Without Contrast Exam date and time: 09/28/2024 8:06 PM Age: 69 years old Clinical indication: Injury or trauma; Fall; Other: Pain; Additional info: Fall, low back/l hip/leg pain, diff. Lifting lle TECHNIQUE: Imaging protocol: Computed tomography of the cervical spine without contrast. Radiation optimization: All CT scans at this facility use at least one of these dose optimization techniques: automated exposure control; mA and/or kV adjustment per patient size (includes targeted exams where dose is matched to clinical indication); or iterative reconstruction. COMPARISON: MR CERVICAL SPINE WO CON 10/17/2021 9:23 AM FINDINGS: Bones: No evidence of acute fracture or malalignment. Multi-level degenerative changes result in variable degrees of moderate to severe spinal canal stenosis and neuroforaminal narrowing, most prominent from C5-C7 and on the left at C4-C5. Lungs: No acute abnormality or suspicious mass lesion in the visualized lung apices. Soft tissues: Unremarkable. IMPRESSION: 1. No evidence of acute osseous abnormality in the cervical spine. 2. Multi-level degenerative changes, as above.
--- NOTE | 2024-09-28 19:56 | XR_ITS ---
PROCEDURE INFORMATION: Exam: XR Left Hip Exam date and time: 09/28/2024 8:16 PM Age: 69 years old Clinical indication: Injury or trauma; Fall; Other: Pain; Additional info: Fall, low back/l hip/leg pain, diff. Lifting lle TECHNIQUE: Imaging protocol: Radiologic exam of the left hip. Views: 2 or 3 views hip with pelvis when performed. COMPARISON: CT BONY PELVIS 09/28/2024 8:13 PM FINDINGS: Bones/joints: Degenerative changes of both hips, [id number]. Degenerative changes of both sacroiliac joints. No acute fracture. Soft tissues: Unremarkable. IMPRESSION: No acute findings.
--- NOTE | 2024-09-28 19:56 | XR_ITS ---
PROCEDURE INFORMATION: Exam: XR Left Femur Exam date and time: 09/28/2024 8:16 PM Age: 69 years old Clinical indication: Injury or trauma; Fall; Other: Pain; Additional info: Fall, low back/l hip/leg pain, diff. Lifting lle TECHNIQUE: Imaging protocol: Radiologic exam of the left femur. Views: 2 views. COMPARISON: CT BONY PELVIS 09/28/2024 8:13 PM FINDINGS: Bones/joints: Moderate degenerative changes of the hip. No acute fracture. Soft tissues: Unremarkable. IMPRESSION: No acute findings.
--- NOTE | 2024-09-28 19:56 | CT_ITS ---
PROCEDURE INFORMATION: Exam: CT Head Without Contrast Exam date and time: 09/28/2024 8:04 PM Age: 69 years old Clinical indication: Injury or trauma; Fall; Other: Pain; Additional info: Fall, low back/l hip/leg pain, diff. Lifting lle TECHNIQUE: Imaging protocol: Computed tomography of the head without contrast. Radiation optimization: All CT scans at this facility use at least one of these dose optimization techniques: automated exposure control; mA and/or kV adjustment per patient size (includes targeted exams where dose is matched to clinical indication); or iterative reconstruction. COMPARISON: CT HEAD/BRAIN WO CON 09/28/2024 8:04 PM FINDINGS: Brain: Global cerebral volume loss. No acute intracranial hemorrhage. No intra- or extra-axial fluid collection. No mass effect or midline shift. Periventricular and subcortical white matter hypodensities compatible with chronic hypertensive microvascular disease. Cerebral ventricles: No hydrocephalus. Paranasal sinuses: No air fluid levels in the visualized paranasal sinuses. Mastoid air cells: Visualized mastoid air cells are clear. Bones: No evidence of acute calvarial or skull base fracture. Soft tissues: Unremarkable. IMPRESSION: 1. No evidence of acute intracranial abnormality. 2. White matter changes compatible with chronic hypertensive microvascular disease. 3. Global cerebral volume loss.
--- NOTE | 2024-09-28 19:56 | CT_ITS ---
PROCEDURE INFORMATION: Exam: CT Thoracic Spine Without Contrast Exam date and time: 09/28/2024 8:08 PM Age: 69 years old Clinical indication: Injury or trauma; Fall; Other: Pain; Additional info: Fall, low back/l hip/leg pain, diff. Lifting lle TECHNIQUE: Imaging protocol: Computed tomography of the thoracic spine without contrast. Radiation optimization: All CT scans at this facility use at least one of these dose optimization techniques: automated exposure control; mA and/or kV adjustment per patient size (includes targeted exams where dose is matched to clinical indication); or iterative reconstruction. COMPARISON: CT THORACIC SPINE WO CON 09/28/2024 8:08 PM FINDINGS: Bones/joints: No acute fracture. Normal alignment. No significant disc bulge or herniation. No severe spinal canal stenosis. No significant neural foraminal narrowing. Soft tissues: Unremarkable. IMPRESSION: Unremarkable CT Spine.
[2024-09-28] MEDS: KETOROLAC 30MG/ML VIAL 15 MG IV (20:02)
[2024-09-28] MEDS: METHOCARBAMOL 500MG TABLET 500 MG PO (20:02)
[2024-09-28] MEDS: ACETAMINOPHEN 500MG TAB 1000 MG PO (20:02)
[2024-09-28] MEDS: LIDOCAINE 5% TRANSDERMAL PATCH 1 EACH TD (20:03)
--- NOTE | 2024-09-28 20:04 | [facility].EDGENADL ---
Discharge Plan Disposition Patient Disposition: Home, Self-Care Condition: Good Prescriptions Prescriptions: New methocarbamol 750 mg tablet 750 mg PO Q8H PRN (Reason: pain) Qty: 20 0RF naproxen 500 mg tablet 500 mg PO BID 10 Days Qty: 20 0RF No Action aspirin [Adult Low Dose Aspirin] 81 mg tablet,delayed release (DR/EC) 81 mg PO DAILY metoprolol succinate 100 mg tablet extended release 24 hr 100 mg PO DAILY Qty: 90 3RF duloxetine 60 mg capsule,delayed release(DR/EC) 60 mg PO DAILY rosuvastatin 40 mg tablet 40 mg PO DAILY Qty: 90 3RF clopidogrel 75 mg tablet 75 mg PO DAILY Qty: 90 4RF amlodipine 2.5 mg tablet See Rx Instructions .ROUTE .COMPLEX Qty: 90 3RF Dose Instruction: TAKE 1 TABLET BY MOUTH ONCE DAILY Rx Instructions: TAKE 1 TABLET BY MOUTH ONCE DAILY nitroglycerin 0.4 mg tablet, sublingual See Rx Instructions .ROUTE .COMPLEX Qty: 25 3RF Dose Instruction: PLACE 1 TABLET UNDER TONGUE NEEDED FOR CHEST PAIN MAY REPEAT EVERY 5 MINUTES (MAX OF 3 TABS/15 MINUTES) Rx Instructions: PLACE 1 TABLET UNDER TONGUE NEEDED FOR CHEST PAIN MAY REPEAT EVERY 5 MINUTES (MAX OF 3 TABS/15 MINUTES) Referrals Follow up/Referrals: Kvng Mae MD [Primary Care Provider] - See instructions Activity Restrictions/Add. Instructions Additional Instructions/Restrictions: You were evaluated in the emergency department today. At this time, your CT scans and x-rays are reassuring. Labs are also reassuring. 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 Also take Tylenol every 4-6 hours as needed. Follow-up closely with your primary care provider. Return to the emergency department for new or worsening symptoms. Clinical Impressions Clinical Impression: Fall, Low back pain Instructions Patient Instructions: DI for Low Back Pain Print Language Print Language: Maori Discharge ED Provider: Mariana Robins General Adult HPI General Chief complaint: Fall Stated complaint: AO 09/26/24 fell hit head,difficulty get up & down Time Seen by Provider: 09/28/24 19:44 Mode of Arrival: Ambulatory Source of Information: Patient Description of Symptoms (Recalled from ER Triage Doc. by RN): Patient fell morning- states he is having back pain when getting up and down. Has taken no meds today. Regarding the fall- he states he did hit his head and did have LOC. He is fuzzy on the details of the fall. Takes aspirin but no blood thinners. History of Present Illness HPI narrative: This patient is a 69-year-old male with a history of CAD, hypertension, hyperlipidemia, hypertensive heart disease, SHERLEY, chronic use of aspirin and Plavix presenting to the emergency department for evaluation with concern for left-sided low back pain with pain especially when getting up from a seated position since a ground-level fall that happened yesterday. Patient does not remember exactly what happened but he thinks he got tripped and fell. He did hit his head and believes he lost consciousness but is not sure. He does not remember exactly what happened. He notes he was feeling fine prior to the fall. Since then, he has had no significant headaches, vision changes, neck pain, chest pain, abdominal pain, numbness, tingling, saddle anesthesia, or other concerns. He notes that once he gets up and gets walking he is okay, it is getting up from sitting that is very difficult. Related Data Home Medications ?Medication ?Instructions ?Recorded ?Confirmed aspirin 81 mg tablet,delayed 81 mg PO DAILY [facility] 07/12/17 08/07/24 release (Adult Low Dose Aspirin) duloxetine 60 mg capsule,delayed 60 mg PO DAILY Depression 11/27/19 08/07/24 release Previous Rx's ?Medication ?Instructions ?Recorded rosuvastatin 40 mg tablet 40 mg PO DAILY #90 tabs 09/15/23 amlodipine 2.5 mg tablet See Rx Instructions .Route 11/16/23 .COMPLEX #90 tabs nitroglycerin 0.4 mg sublingual See Rx Instructions .Route 12/19/23 tablet .COMPLEX #25 ea clopidogrel 75 mg tablet 75 mg PO DAILY #90 tabs 04/09/24 metoprolol succinate 100 mg 100 mg PO DAILY #90 tabs 08/07/24 tablet,extended release 24 hr methocarbamol 750 mg tablet 750 mg PO Q8H PRN pain #20 tabs 09/28/24 naproxen 500 mg tablet 500 mg PO BID 10 days #20 tabs 09/28/24 Allergies Allergy/AdvReac Type Severity Reaction Status Date / Time ranolazine (From Ranexa) AdvReac Severe Verified 08/07/24 13:26 isosorbide AdvReac Intermediate headache Verified 08/07/24 13:26 PFSH [facility] Disclaimer: The information contained in this section may have been updated after the patient was seen, as this information can be updated by other users. Medical History Dyspnea Unstable angina Sinus bradycardia SHERLEY (obstructive sleep apnea) Gastroesophageal reflux disease Restless sleeper Daytime somnolence Diastolic dysfunction Angina, class III HLD (hyperlipidemia) HHD (hypertensive heart disease) CAD (coronary artery disease) Other forms of angina pectoris Surgical History History of cardiac cath Stented coronary artery Social History Smoking Status: Never smoker second hand exposure: No alcohol intake: never substance use type: denies use current occupational status: employed Travel in the last 8 weeks: Inside the [place] household members: spouse housing: house current occupation: [employer] current occupational exposures/hazards: No caffeine: Yes Have you lived/traveled outside [place] in past 30 days?: No Contact w/someone who lives/traveled outside [place] past 30 days?: No Exposure to someone with infectious disease in past 14 days?: No Do you have a fever (greater than 100.4 F or 38 C)?: No Have you tested positive for COVID-19: No Exposed to someone with COVID-19 in past 14 days?: No Do you have a sore throat?: No Do you have a cough?: No Do you have any weakness?: No Do you have any diarrhea?: No Are you experiencing any unusual bleeding?: No Do you have any muscle aches/pain?: No Do you have any abdominal pain?: No Are you experiencing loss of taste or smell?: No Other Medical History Have you received the Flu Vaccine for this season: Yes Have you received the Pneumonia Vaccine: No ROS Obtained: Yes All systems reviewed & no additional complaints except as documented Physical Exam General General appearance: alert and in no apparent distress Head Head exam: atraumatic and normocephalic Eye Eye exam: Present normal appearance, PERRL and EOMI ENT ENT exam: Present normal exam, normal oropharynx, mucous membranes moist and normal external ear exam Neck Neck exam: Present normal inspection, full ROM and trachea midline; Absent tenderness Chest Chest inspection: Present normal inspection and symmetric chest wall rise; Absent tenderness Respiratory Respiratory exam: Present normal lung sounds bilaterally; Absent respiratory distress, wheezes, stridor or accessory muscle use Cardiovascular Cardiovascular exam: Present regular rate and normal rhythm Abdominal Exam Abdominal exam: Present soft; Absent distention, tenderness or guarding Extremities Exam Extremities exam: Present normal inspection, full ROM, normal capillary refill and other (Pain with straight leg raise on the left, difficulty lifting his leg himself with active range of motion. Otherwise, intact sensation and movements distally.); Absent tenderness or edema Back Exam Back exam: Present full ROM and tenderness (Low back pain) Neurological Exam Neurological exam: Present alert, oriented X3, CN II-XII intact and normal gait; Absent motor sensory deficit Psychiatric Psychiatric exam: Present normal affect and normal mood Skin Skin exam: Present warm and dry Medical Decision Making Medical Records Medical records reviewed: Yes I reviewed the patient's medical records. Screening: Per USPSTF and CDC recommendations, given the prevalence of disease in our region, it is our hospital?s policy to screen for HIV and viral Hepatitis for all patients aged 18 and over and those with ongoing risk factors. Baljit Inquiry Pt receiving controlled substance: No Vital Signs: 09/28/24 19:39 09/28/24 19:41 09/28/24 20:01 Temperature 98.0 F Temperature Source Oral Pulse Rate 58 L 63 Pulse Rate [Right Radial] 60 Respiratory Rate 16 Blood Pressure 142/77 H 129/71 Blood Pressure [Right Arm] 142/77 H Blood Pressure Mean Blood Pressure Mean [Right Arm] 98 Blood Pressure Source Blood Pressure Source [Right Arm] Automatic Cuff Blood Pressure Position 02 Sat by Pulse Oximetry 93 L 96 95 Oxygen Delivery Method Room Air 09/28/24 20:31 09/28/24 21:00 09/28/24 21:30 Temperature Temperature Source Pulse Rate 72 65 56 L Pulse Rate [Right Radial] Respiratory Rate Blood Pressure 143/82 H 121/68 111/72 Blood Pressure [Right Arm] Blood Pressure Mean 88 Blood Pressure Mean [Right Arm] Blood Pressure Source Blood Pressure Source [Right Arm] Blood Pressure Position 02 Sat by Pulse Oximetry 96 94 L 96 Oxygen Delivery Method 09/28/24 22:00 09/28/24 22:24 Temperature 97.9 F Temperature Source Oral Pulse Rate 58 L 60 Pulse Rate [Right Radial] Respiratory Rate 16 Blood Pressure 114/69 120/72 Blood Pressure [Right Arm] Blood Pressure Mean Blood Pressure Mean [Right Arm] Blood Pressure Source Automatic Cuff Blood Pressure Source [Right Arm] Blood Pressure Position Sitting 02 Sat by Pulse Oximetry 96 Oxygen Delivery Method Room Air Lab Data Lab results reviewed: Yes I reviewed the patient's lab results. Lab Results 09/28/24 19:56: WBC 4.7 L, RBC 4.78, Hgb 15.1, Hct 43.0, MCV 90.0, MCH 31.6 H, MCHC 35.1, RDW 13.4, Plt Count 182, MPV 10.8 H, Neut % (Auto) 54.3, Lymph % (Auto) 31.8, Bertie % (Auto) 9.1, Eos % (Auto) 4.0, Baso % (Auto) 0.6, Neut # (Auto) 2.6, Lymph # (Auto) 1.5, Bertie # (Auto) 0.4, Eos # (Auto) 0.2, Baso # (Auto) 0.0, Sodium 138, Potassium 4.6, Chloride 107, Carbon Dioxide 25, Anion Gap 10.6, BUN 15, Creatinine 0.90, Estimated Creat Clear 95, Estimated GFR 84, Est GFR ( Amer) 102, Glucose 150 H, Calcium 8.6, Total Bilirubin 0.8, AST 48, ALT 36, Alkaline Phosphatase 75, Total Creatine Kinase 58, Troponin I < 0.01, Total Protein 7.0, Albumin 4.1, Globulin 2.9, Albumin/Globulin Ratio 1.4 09/28/24 : Lactate 1.4 09/28/24 19:56 09/28/24 19:56 Orders (Tests/Meds): ED MEDICATIONS Discontinued Medications Generic Name Dose Route Start Last Admin Trade Name Freq PRN Reason Stop Dose Admin Acetaminophen 1,000 mg 09/28/24 19:57 09/28/24 20:02 Acetaminophen 500mg Tab PO 09/28/24 19:58 1,000 mg ONCE ONE Administration Ketorolac Tromethamine 15 mg 09/28/24 19:57 09/28/24 20:02 Ketorolac 30mg/Ml Vial IV 09/28/24 19:58 15 mg ONCE ONE Administration Lidocaine 1 each 09/28/24 19:57 09/28/24 20:03 Lidocaine 5% Transdermal Patch TD 09/28/24 19:58 1 each ONCE ONE Administration Methocarbamol 500 mg 09/28/24 19:57 09/28/24 20:02 Methocarbamol 500mg Tablet PO 09/28/24 19:58 500 mg ONCE ONE Administration ORDERS Category Date Time Status CT bony pelvis Stat Cat Scan 09/28/24 19:[address] cervical spine wo con Stat Cat Scan 09/28/24 19:[address] head/brain wo con Stat Cat Scan 09/28/24 19:[address] lumbar spine wo con Stat Cat Scan 09/28/24 19:[address] thoracic spine wo con Stat Cat Scan 09/28/24 19:56 Completed CXR --portable [XR chest portable] Stat Exams 09/28/24 20:26 Completed Femur XR left 2 views [XR femur LT 2V] Stat Exams 09/28/24 19:56 Completed Hip XR left minimum 2 views [XR hip LT 2-3V w/pelvis] Exams 09/28/24 19:56 Completed Stat Knee XR left 3 views [XR knee LT 3V] Stat Exams 09/28/24 19:56 Completed CBC w/Auto Diff [Complete Blood Count Auto Diff] Stat Lab 09/28/24 19:56 Completed CK [Creatine Kinase] Stat Lab 09/28/24 19:56 Completed CMP [Comprehensive Metabolic Panel] Stat Lab 09/28/24 19:56 Completed Lactic Acid Stat Lab 09/28/24 Completed Trop I [Troponin I] Stat Lab 09/28/24 19:56 Completed Medical Decision Narrative: In summary, this patient is a 69-year-old man presenting to the Emergency Department for evaluation of left-sided low back pain and difficulty with getting up from a seated position ever since a ground-level fall that happened yesterday.. Differential diagnoses considered include but are not limited to spine fracture, contusion, disc herniation, pelvic fracture, musculoskeletal strain/sprain, polytrauma. Ruling out the most morbid conditions drove assessment. It should be noted patient's history includes cardiovascular disease on aspirin and Plavix which may or may not be at goal therapy. This complicates all aspects of care by increasing patient's risk for morbidity. I reviewed patient's past medical records and noted prior cardiac evaluations for maintenance of health with last 1 being August. On exam, the patient is lying in bed in no acute distress. He has some tenderness to palpation in his left low back and pain with straight leg raise on the left. He is neurologically intact in his lower extremities with no alarm findings or symptoms concerning for cauda equina syndrome or spinal cord compression. Cardiopulmonary and abdominal exams are benign. He has no focal neurologic deficits. Workup included CT head, CT C/T/L-spine, chest x-ray, x-ray of the left hip, femur, knee. Patient was given oral Tylenol, oral Robaxin, IV Toradol, topical Lidoderm patch for symptomatic improvement of pain. Basic lab evaluation was also obtained including CK and lactic acid to evaluate for significant derangement in the setting of a fall. I independently interpreted CT and x-ray prior to the radiologist read and noted no acute fracture, no intracranial hemorrhage. Please see their read for final interpretation. Labs were obtained that demonstrated reassuring CBC with no significant leukocytosis or anemia, reassuring chemistry. On reassessment, patient had good improvement after administration of interventions as above. He is up ambulating and feeling better. Given this, I feel that he is appropriate for discharge with diagnosis of likely musculoskeletal pain. I provided him with prescriptions for Robaxin and naproxen as well as given instructions for close follow-up and strict return precautions. He was discharged after all questions were answered. Critical Care Critical Care Time Critical Care Time: No
[2024-09-28 20:07] LABS: Basophils % 0.6 % (0.1-2.0); Eosinophils # 0.2 Kmm3 (0.0-0.4); Hemoglobin 15.1 g/dL (14.1-18.0); Lymphocytes # 1.5 K/mm3 (0.7-4.5); Lymphocytes % 31.8 % (10-50); Mean Corpuscular HGB Conc 35.1 g/dL (31.8-35.4); Mean Corpuscular Hemoglobin 31.6 pg (27.0-31.2); Mean Platelet Volume 10.8 fl (7.4-10.4); Monocytes # 0.4 K/mm3 (0.1-1.0); Monocytes % 9.1 % (1.7-9.3); Neutrophils # 2.6 K/mm3 (1.8-7.8); Neutrophils % 54.3 % (37.0-80.0); Nucleated Red Blood Cells # 0 10^3/uL; Nucleated Red Blood Cells % 0 %; Platelet Count 182 K/mm3 (142-424); Red Blood Count 4.78 M/mm3 (4.60-6.20); Red Cell Distribution Width 13.4 % (11.5-17.5); Red Cell Distribution Width-SD 44.1 fL; White Blood Count 4.7 K/mm3 (4.8-10.8)
[2024-09-28 20:10] LABS: Albumin Level 4.1 g/dl (3.5-5.0); Chloride 107 mmol/L (98-107); Potassium 4.6 mmoL/L (3.5-5.1); Sodium 138 mmol/L (136-145)
[2024-09-28 20:13] LABS: Alanine Aminotransferase 36 U/L (12-78); Alkaline Phosphatase 75 U/L (38-126); Anion Gap 10.6 mEq/L (5-15); Aspartate Amino Transferase 48 U/L (17-59); Bilirubin,Total 0.8 mg/dl (0.2-1.3); Blood Urea Nitrogen 15 mg/dl (9-20); Carbon Dioxide 25 mmol/L (22.0-30.0); Creatinine Clearance Estimated 95 mL/min (50-200); Estimated Glomerular Filt Rate 84 ml/min (>60); GFR (African American) 102 ML/MIN (>60)
[2024-09-28 20:14] LABS: Albumin/Globulin Ratio 1.4 (1.1-1.8); Calcium 8.6 mg/dl (8.4-10.2); Globulin 2.9 g/dL (1.3-3.2); Glucose 150 mg/dl (74-100)
--- NOTE | 2024-09-28 20:26 | XR_ITS ---
PROCEDURE INFORMATION: Exam: XR Chest Exam date and time: 09/28/2024 8:32 PM Age: 69 years old Clinical indication: Injury or trauma; Fall; Other: Pain TECHNIQUE: Imaging protocol: Radiologic exam of the chest. Views: 1 view. COMPARISON: CR XR CHEST PORTABLE 03/23/2024 4:20 AM FINDINGS: Lungs: Unremarkable. No consolidation. Pleural spaces: Unremarkable. No pleural effusion. No pneumothorax. Heart/Mediastinum: Unremarkable. No cardiomegaly. Bones/joints: Unremarkable. IMPRESSION: No acute findings.
[2024-09-28 20:36] LABS: Creatine Kinase 58 U/L (55-170)
[2024-09-28 20:44] LABS: Lactic Acid 1.4 mmol/L (0.7-2.1)
[2024-09-28 20:50] LABS: Troponin I < 0.01 ng/ml (0.00-0.034)
== END 2024-09-28 22:25 | disposition home or self-care (01) ==
PROVIDERS: Emergency Provider Emergency Medicine; PCP Family Medicine
DX: M54.50 Low back pain, unspecified (principal); W19.XXXA Unspecified fall, initial encounter
CPT/HCPCS: 70450; 71045; 72125; 72128; 72131; 72192; 73502; 73552; 73562; 80053; 82550; 83605; 84484; 85025; 96374; 99285; J1885

== ENCOUNTER 2025-02-14 07:49 | Outpatient (CLI) | payer BC, MEDICARE, SELFPAY ==
--- OUTSIDE RECORDS SUMMARY | 2024-10-30 09:30 | XMS_ITS ---
Author Organization [facility] Address [address] [place] [id number] Care Team Providers Care Wood Block Artist Name Role Phone Zev Mae Primary Care Provider Maribel Tinajero Unavailable [phone] Allergies No Known Allergies Results Component Value Reference Range Notes Glycohemoglobin A1c (in hous e) Reviewed date:10/31/2024 03:26:52 PM Interpretation:5.9% Performing Lab: Notes/Report: 5.9% glycohemoglobin 5.9% 5 - 6.5 % REASON FOR VISIT Check Up and Refills Medications Medication SIG (Take, Route, Frequency, Duration) Notes Start Date End Date Status DULoxetine HCl 60 MG 1 cap(s) orally once a day; Duration: 30 days Active Rosuvastatin Calcium 10 MG 1 tab(s) orally once a day Active Aspirin Adult Low Dose 81 MG 1 tab(s) orally once a day Active Plavix 75 MG 1 tab(s) orally once a day Active Metoprolol Tartrate 50 MG 1 tab(s) orally 2 times a day Active Nitrostat 0.4 MG TAKE 1 TAB UNDER TONGUE EVERY 3 TO 5 MINUTES X3 DOSES NEEDED FOR CHESTPAIN Rfs rem none Patient needs an appointment Active Problems Problem Type SNOMED Code ICD Code Onset Dates Problem Status W/U Status Risk Notes Problem Anxiety depression (962214504) Anxiety with depression (F41.8) Active confirmed Problem Body mass index 30+ - obesity (546979849) BMI 30.0-30.9,adult (Z68.30) Active confirmed Vital Signs Blood pressure systolic 120 mm Hg 10/31/19 25 Blood pressure diastolic 72 mm Hg 025 Heart Rate 61 /min 10/30/2024 Height 71 in 10/30/2024 Weight 218.8 lbs 10/30/2024 BMI 30.51 kg/m2 10/30/2024 Encounters Encounter Location Date Provider Diagnosis [facility] [address] [place], [place] [id number] 10/30/2024 Maribel Tinajero Hyperglycemia R73.9 ; Mixed hyperlipidemia E78.2 ; Anxiety with depression F41.8 ; Stented coronary artery Z95.5 ; Atherosclerosis of [place] coronary artery without angina pectoris, unspecified whether [place] or transplanted heart I25.10 and BMI 30.0-30.9,adult Z68.30 Assessments Encounter Date Diagnosis (ICD Code) Assessment Notes Treatment Notes Treatment Clinical Notes Section Notes 10/30/2024 Hyperglycemia (ICD-10 - R73.9) 10/30/2024 Mixed hyperlipidemia (ICD-10 - E78.2) 10/30/2024 Anxiety with depression (ICD-10 - F41.8) pt thinks med helps his angry moods; will FU in 2 months and prn 10/30/2024 Stented coronary artery (ICD-10 - Z95.5) 10/30/2024 Atherosclerosis of [place] coronary artery without angina pectoris, unspecified whether [place] or transplanted heart (ICD-10 - I25.10) 10/30/2024 BMI 30.0-30.9,adult (ICD-10 - Z68.30) 10/30/2024 Other BS and TG elevated with normal A!C Plan Of Treatment Medication Medication Name Sig Start Date Stop Date Notes DULoxetine HCl 60 MG 1 cap(s) orally onc e a day; Duration: 30 days Rosuvastatin Calcium 10 MG 1 tab(s) orally once a day Aspirin Adult Low Dose 81 MG 1 tab(s) orally once a day Plavix 75 MG 1 tab(s) orally once a day Metoprolol Tartrate 50 MG 1 tab(s) orally 2 times a day Treatment Notes Assessment Notes Anxiety with depression pt thinks med he lps his angry moods; will FU in 2 months and prn Other BS and TG elevated w ith normal A!C Next Appt Details Follow Up: 2 Months, Reason: Progress Notes * DEANN PÉREZ:1955 ([age] yo M)Acc No.[id number]:10/30/2024 Progress Notes Patient: IAN DYSON Provider: KEON Vargas :1955 A ge:69 Y S ex:Male Date:10/30/2024 Address:[facility] [address], [place], [id number] Pcp:Zev Mae Subjective: * Chief Complaints: * 1 . Check Up and Refills. * HPI: H PI: Daughter Tierra called this AM and reported angry behavior. see TE; pt reports being out of Duloxetine for several weeks and demonstrating anger towards family and friends ; to note-Tierra ius not on his HIPPA FORM. 69 year old male presents with c/o Patient is here today for?Pt is here today for a check up with refills. * ROS: C ARDIOLOGY: Positive for s ees cardiology q 6 months ; last visit 08/07/2024; cardiac meds prescribed by them. n o C hest pain. n o L eg edema. n o S hortness of breath. D ERMATOLOGY: no R kosta. n o H lori. G ASTROENTEROLOGY: no N ausea. n o V omiting. n o D iarrhea.? U ROLOGY: no D ifficulty urinating. n o B lood in urine. * Medical History: C oronary Artery Disease, heart stent, [place] 12/13, 20 pack year smoking history, quit in 2003, Psoriasis, COPD, Atelectasis, Anemia, Right inguinal hernia, Thrombocytopenia, GERD, HTN, Hyperlipidemia, SHERLEY. * Surgical History: s inus surgery 2006, Stress Test Mar 2015, heart cath-Dr Tirado - Stent x 2 07/2017, heart cath 10/2017, heart cath 01/2018, CABG x 3 -Dr Palacios- 04/2020. * Hospitalization/Major Diagno stic Procedure: M I and stent 12/2009, [facility] - Chest pain Mar 2015. * Family History: F ather: 77 yrs, heart disease. M other: 84 yrs, stroke. S iblings: 1 brother, 1 sister. * Social History: C URRENT TOBACCO USE S moking Status: Patient does NOT smoke. P ast smoking status: no. * Medications: T aking Aspirin Adult Low Dose 81 MG Tablet Delayed Release 1 tab(s) orally once a day , Taking Plavix 75 MG Tablet 1 tab(s) orally once a day , Taking Metoprolol Tartrate 50 MG Tablet 1 tab(s) orally 2 times a day , Taking Rosuvastatin Calcium 10 MG Tablet 1 tab(s) orally once a day , Taking Nitrostat 0.4 MG Tablet Sublingual TAKE 1 TAB UNDER TONGUE EVERY 3 TO 5 MINUTES X3 DOSES NEEDED FOR CHESTPAIN Rfs rem none , Notes to Pharmacist: Patient needs an appointment, Taking DULoxetine HCl 60 MG Capsule Delayed Release Particles 1 cap(s) orally once a day , Discontinued Cephalexin 500 MG Capsule 1 capsule Orally Two times a day , Medication List reviewed and reconciled with the patient * Allergies: N .K.D.A. Objective: * Vitals: W t: 218.8, Temp: 97.9, BP: 120/72, HR: 61, Nurse: greg, Ht: 71, BMI:30.51. * Examination: G eneral Examination: General Appearance: N AD , appears healthy , alert , pleasant , well nourished and hydrated. H EENT: s clera and conjunctiva clear, PERRLA, TM's normal, translucent. O ral cavity: m ucosa moist and WNL , no erythema. N [place]: s upple , no lymphadenopathy , thyroid normal , no carotid bruits. H eart: R RR. L ungs: C TAB A&P. N eurologic Exam: a lert and oriented. E xtremities: n o leg edema. ? P sychology: Grooming : n eat. M ood : p leasant , good , smiles , jokes , cooperative. N eurologic Exam: a lert and oriented. L ABS: date of labs . C reatinine 0 .9. B UN?15. S odium 1 38. P otassium 4 .6. c hloride 1 07. C O2 2 5.?glucose 1 50. c alcium 8 .,6. C BC-hgb/hct/wbc 1 /4.7. T otal Cholesterol 1 2/4/24-113. T riglyceride 1 94. L DL 5 7.97. H DL 3 2. T SH 1.9. S GOT/SGPT 4 /36. a lk phos 7 5. t otal bilirubin 0 .8. a lbumin 4 .1. Assessment: * Assessment: 1. H yperglycemia - R73.9 (Primary) 2 . M ixed hyperlipidemia - E78.2 ? 3 . A nxiety with depression - F41.8 4 . S tented coronary artery - Z95.5 5 . A therosclerosis of [place] coronary artery without angina pectoris, unspecified whether [place] or transplanted heart - I25.10 6 . B [place] 30.0-30.9,adult - Z68.30 Plan: * Treatment: Value Reference Range g lycohemoglobin 5.9% 5 - 6.5 % * Taylor Morocho 10/30/2024 02:1 9:44 PM > Provider reviewed results while patient in office.Maribel Tinajero 10/31/2024 03:26:48 PM > 2.?Mixed hyperlipidemia? Continue Rosuvastatin Calcium Tablet, 10 MG, 1 tab(s), orally, once a day.?? 3.?Anxiety with depression? Refill DULoxetine HCl Capsule Delayed Release Particles, 60 MG, 1 cap(s), orally, once a day, 30 days, 30 Capsule, Refills 5.?? Notes: pt thinks med helps his angry moods; will FU in 2 months and prn?? 4.?Stented coronary artery? Continue Plavix Tablet, 75 MG, 1 tab(s), orally, once a day.??5.?Atherosclerosis of [place] coronary artery without angina pectoris, unspecified whether [place] or transplanted heart? Continue Aspirin Adult Low Dose Tablet Delayed Release, 81 MG, 1 tab(s), orally, once a day;?Continue Metoprolol Tartrate Tablet, 50 MG, 1 tab(s), orally, 2 times a day.??6.?Others? Notes: BS and TG elevated with normal A!C?? * Procedure Codes: G 2211 Complex e/[place], [address] CAPILLARY BLOOD DRAW, 04555 GLYCATED HEMOGLOBIN TEST, Modifiers: QW , G8752 MOST RECENT SYSTOLIC BP < 140MM HG, G8754 MOST RECENT DIASTOLIC BP < 90MM HG, G8950 PREHTN/HTN BP DOC INDCD F/U DOC, 3044F HG A1C LEVEL LT 7.0% * Follow Up: 2 Months * Images: Billing Information: * Visit Code: 89268 Office Visit, Est Pt., Level 4. * Procedure Codes: G2211 Complex e/[place]. [address] CAPILLARY BLOOD DRAW. 22742 GLYCATED HEMOGLOBIN TEST. Modifiers: QW G8752 MOST RECENT SYSTOLIC BP < 140MM HG. G8754 MOST RECENT DIASTOLIC BP < 90MM HG. G8950 PREHTN/HTN BP DOC INDCD F/U DOC. 3044F HG A1C LEVEL LT 7.0%. * Electronic signature of Dasha Tinajero APRN on 02/14/2025 at 07:52 AM EDT Sign off status: Pending * Provider: KEON Vargas Date: 0 10/30/2024 Generated for Allegra owen/Cristine/Sarahitting on: 0 02/14/2025 07:52 AM EDT History and Physical Notes * HPI (History of Present Illness) Category Sub-Category Detail Notes Category Not es HPI Patient is here today for Pt is here today for a check up with refills Examination Category Sub-Category Detail Notes Category Not es General Examination HEENT: sclera and c onjunctiva clear, PERRLA, TM's normal, translucent Heart: RRR Lungs: CTAB A&P Extremities: no leg edema General Appearance: NAD , appears health y , alert , pleasant , well nourished and hydrated Neurologic Exam: alert and oriented Neck: supple , no lymphade nopathy , thyroid normal , no carotid bruits Oral cavity: mucosa moist and WNL , no erythema Psychology Neurologic Exam: alert and oriented Grooming : neat Mood : pleasant , good , sm nohemi , jokes , cooperative LABS CBC-hgb/hct/wbc 15/43/4.7 Creatinine 0.9 LDL 57.97 HDL 32 SGOT/SGPT 48/36 glucose 150 Total Cholesterol 24-113 Potassium 4.6 Sodium 138 BUN 15 TSH 1.9 Triglyceride 194 calcium 8.,6 chloride 107 CO2 25 alk phos 75 total bilirubin 0.8 albumin 4.1 date of labs 09/28/2024
--- OUTSIDE RECORDS SUMMARY | 2024-12-31 05:30 | XMS_ITS ---
Author Organization [facility] Address [address] [facility] [address] [facility] [address] [place] [id number] Care Team Providers Care Hoisting Pile Driving Engineer Name Role Phone Zev Mae Primary Care Provider Maribel Tinajero Unavailable [phone] Allergies No Known Allergies REASON FOR VISIT 2 months check and Annual Wellness Visit Immunizations Vaccine Route Administration Date Status Comme nts Prevnar (PCV20) Unknown 12/31/2024 Pending Encounters Encounter Location Date Provider Diagnosis [facility] [address] [facility] [address] [place] [id number] 12/31/2024 Maribel Tinajero Adult general medica l [...] * IAN PÉREZDOB:1955 ([age] yo M)Acc No.[id number]:12/31/2024 Annual Wellness Visit Patient: IAN DYSON Provider: KEON Vargas :1955 A ge:69 Y S ex:Male Date:12/31/2024 Address:[facility] [address], [place], [id number] Pcp:Zev Mae Subjective: * Chief Complaints: * [...] History: C oronary Artery Disease, heart stent, [place] 12/13, 20 pack year smoking history, quit in 2003, Psoriasis, COPD, Atelectasis, Anemia, Right inguinal hernia, Thrombocytopenia, GERD, HTN, Hyperlipidemia, SHERLEY. * Surgical History: s inus surgery 2006, Stress Test Mar 2015, heart cath-Dr Tirado - Stent x 2 07/2017, heart cath 10/2017, heart cath 01/2018, CABG x 3 -Dr Palacios- 04/2020. * Hospitalization/Major Diagno stic Procedure: M I and stent 12/2009, [facility] - Chest pain Mar 2015. * Family [...] IN RCRD, 1003F LEVEL OF ACTIVITY ASSESS, 95567 CBC WITH AUTO DIFF, 1036F TOBACCO NON-USER, [...] IN RCRD. 1003F LEVEL OF ACTIVITY ASSESS. 22281 CBC WITH AUTO DIFF. 1036F TOBACCO NON-USER. 3017F COLORECTAL CA SCREEN DOC REV. * Electronic signature of Dasha Tinajero APRN on 02/14/2025 at 07:52 AM EDT Sign off status: Pending * Provider: KEON Vargas Date: 0 12/31/2024 Generated for Allegra owen/Cristine/Sarahitting on: 0 02/14/2025 [...]
--- OUTSIDE RECORDS SUMMARY | 2025-02-14 07:53 | XMS_ITS | Clinical Summary ---
Author Organization [facility] Address [address] [place] [id number] Care Team Providers Care Vocational Examiner Name Role Phone Michael Ayers MD Primary Care Provider [phone] Social History Tobacco Use Types Packs/Day Years Used Date Smoking Tobacco: Never Assessed Abuse Screen Answer Date Recorded Unsafe at Home or Work/School Not on file Feels Threatened by Someone? Not on file 02/2023 Does Anyone Keep You from Co ntacting Others or Doint Things Outside the Home? Not on file 03/14/2023 Physical Sign of Abuse Present Not on file 1 Housing Stability Answer Date Recorded Current Living Arrangements Not on file 02/2023 Potentially Unsafe Housing Conditions Not on kacie e 03/14/2023 Family and Community Support Answer Kaveh e Recorded Help with Day-to-Day Activities Not on file 03/14/2023 Lonely or Isolated Not on file 03/14/2023 Employment Answer Date Recorded Do you want help finding or keeping work or a meenu b? Not on file 03/14/2023 Disabilities Answer Date Recorded Concentrating, Remembering, or Making Decisions Difficulty Not on file 03/14/2023 Doing Errands Independently Difficulty Not on fi le 03/14/2023 Education Answer Date Recorded Help with school or training? Not on file Preferred Language Not on file 03/14/2023 Sex and Gender Information Value Date Recorded Sex Assigned at Not on file Legal Sex Male 12:52 PM EDT Gender Identity Not on file Sexual Orientation Not on file Plan of Treatment Health Maintenance Due Date Last Done Comments ANNUAL PHYSICAL 1955 HEPATITIS C SCREENING 1955 TDAP/TD VACCINES (1 - Tdap) 1975 COLOGUARD 2001 COLON CANCER SCREENING 5 YEA R SIGMOIDOSCOPY 2001 COLONOSCOPY [address]ER SCREENING [address] COLONOGRAPHY 2001 FECAL OCCULT BLOOD TEST 2001 FIT Testing (1 year) 2001 Pneumococcal Vaccine 50+ (1 of 1 - PCV) 2006 ZOSTER VACCINE (1 of 2) 2006 COVID-19 Vaccine (1 - season) 2025 INFLUENZA VACCINE 03/06/2025 AAA SCREEN ONCE Completed 04/18/2020, 04/18/2020 Insurance [employer] Care Teams Vocational Examiner Relationship Specialty Start Date End Date Michael Ayers MD [address] [facility] [address] [place] [address] PCP - General 03/06/15
--- OUTSIDE RECORDS SUMMARY | 2025-02-14 07:53 | XMS_ITS | Clinical Summary ---
Author Organization [facility] Address [address] [place] [id number] Care Team Providers Care Quality Technician Fiberglass Name Role Phone Kvng Mae MD Primary Care Provider [phone] Family History Medical History Relation Name Comments Cardiac disorder Father Alzheimer's disease Mother Stroke Mother Relation Name Status Comments Father Mother Social History Tobacco Use Types Packs/Day Years Used Date Smoking Tobacco: Former Alcohol Use Standard Drinks/Week Comments No 0 (1 standard drink = 0.6 oz pure alcohol) Alcoholic Drinks/day: Never Drank Alcohol Sex and Gender Information Value Date Recorded Sex Assigned at Not on file Legal Sex Male 8:34 PM EDT Gender Identity Not on file Sexual Orientation Not on file Last Filed Vital Signs Vital Sign Reading Time Taken Comments Blood Pressure 122/70 05/08/2020 10:06 AM EST Pulse 67 05/08/2020 10:06 AM EST Temperature 36.6 C (97.9 F) 07/06/2018 10:48 AM EST Respiratory Rate 15 07/06/2018 10:48 AM EST Oxygen Saturation - - Inhaled Oxygen Concentration - - Weight 93.4 kg (206 lb) 05/08/2020 10:06 AM EST Height 177.8 cm (5' 10 ) 05/08/2020 10:06 AM EST Body Mass Index 29.56 05/08/2020 10:06 AM EST Plan of Treatment Not on file Care Teams Quality Technician Fiberglass Relationship Specialty Start Date End Date Kvng Mae MD [address] [place] [address] PCP - General 10/17/20
--- OUTSIDE RECORDS SUMMARY | 2025-02-14 07:53 | XMS_ITS | Patient Health Record ---
Author Organization [facility] Address [address] [id number] Care Team Providers Care Hedis Analyst Name Role Phone Zev Mae Primary Care Provider Maribel Tinajero Unavailable [phone] Allergies No Known Allergies Results Component Value Reference Range Notes Glycohemoglobin A1c (in hous e) Reviewed date:10/31/2024 03:26:52 PM Interpretation:5.9% Performing Lab: Notes/Report: 5.9% glycohemoglobin 5.9% 5 - 6.5 % Reason For Referral No Information Medications Medication SIG (Take, Route, Frequency, Duration) Notes Start Date End Date Status DULoxetine HCl 60 MG 1 cap(s) orally onc e a day; Duration: 30 days Active Nitrostat 0.4 MG 1 tablet under the t ongue and allow to dissolve as needed. Take every 5 minutes up to 3 times if chest pain persists Sublingual Active Rosuvastatin Calcium 10 MG 1 tab(s) oral ly once a day Active Aspirin Adult Low Dose 81 MG 1 tab(s) orally once a day Active Plavix 75 MG 1 tab(s) orally once a day Active Metoprolol Tartrate 50 MG 1 tab(s) orall y 2 times a day Active Immunizations Vaccine Route Administration Date Status Comme nts Tetanus Tdap-Adacel (over 7yrs) Unknown 12/16/2015 Admi nistered Prevnar (PCV20) Unknown 12/31/2024 Pending COVID 19 Linh Unknown 11/14/2020 Administered Problems Problem Type SNOMED Code ICD Code Onset Dates Problem Status W/U Status Risk Notes Problem Essential hypertension (84692817) Essential hypertension (I10) Active confirmed Problem Body mass index 30+ - obesity (374466509) BMI 30.0-30.9,adult (Z68.30) Active confirmed Problem Psoriasis (6183726) Psoriasis (L40.9) Active confirmed Problem Depressive disorder (09659250) Depressive disorder (F32.9) Active confirmed Problem Atherosclerosis of coronary artery without angina pectoris (493137211627992) Atherosclerosis of [place] coronary artery of [place] heart without angina pectoris (I25.10) Active confirmed Problem COPD - Chronic obstructive pulmonary disease (29950636) Chronic obstructive pulmonary disease, unspecified COPD type (J44.9) Active confirmed Problem Obstructive sleep apnea syndrome (07576578) SHERLEY (obstructive sleep apnea) (G47.33) Active confirmed Problem Dyslipidemia (121649860) Dyslipidemia (E78.5) Active confirmed Problem Anxiety depression (326114540) Anxiety with depression (F41.8) Active confirmed Vital Signs Heart Rate 61 /min 10/30/2024 Blood pressure diastolic 72 mm Hg 10/30/2024 Height 71 in 10/30/2024 Blood pressure systolic 120 mm Hg 10/30/2024 Weight 218.8 lbs 10/30/2024 BMI 30.51 kg/m2 10/30/2024 Encounters Encounter Location Date Provider Diagnosis [facility] [address] [facility] [address] [facility] [address] [place] [id number] 10/30/2024 Maribel Alemanond Hyperglycemia R73.9 ; Mixed hyperlipidemia E78.2 ; Anxiety with depression F41.8 ; Stented coronary artery Z95.5 ; Atherosclerosis of [place] coronary artery without angina pectoris, unspecified whether [place] or transplanted heart I25.10 and BMI 30.0-30.9,adult Z68.30 [facility] [address] [facility] [address] [facility] [address] [place], [place] [id number] 10/10/2024 Zev Mae [facility] [address] [place], [place] [id number] 10/30/2024 Zev Mae Assessments Encounter Date Diagnosis (ICD Code) Assessment Notes Treatment Notes Treatment Clinical Notes Section Notes 10/30/2024 Hyperglycemia (ICD-10 - R73.9) 10/30/2024 Mixed hyperlipidemia (ICD-10 - E78.2) 10/30/2024 Anxiety with depression (ICD-10 - F41.8) pt thinks med helps his angry moods; will FU in 2 months and prn 10/30/2024 Stented coronary artery (ICD-10 - Z95.5) 10/30/2024 Atherosclerosis of [place] coronary artery without angina pectoris, unspecified whether [place] or transplanted heart (ICD-10 - I25.10) 10/30/2024 BMI 30.0-30.9,adult (ICD-10 - Z68.30) 10/30/2024 Other BS and TG elevated with normal A!C Plan Of Treatment No Information Insurance Providers Payer Name Payer Address Payer Phone Subscriber Number Group Number Insured Name Patient Relationship to Insured Coverage Start Date Coverage End Date MEDICARE PART B [address] [address] [place] [phone] [id number] IAN PÉREZ Self - patient is the insured [employer] [address] [place] [address] [id number] IAN PÉREZ Self - patient is the insured Medications Administered Medication Instructions Date of Administration Dosage Notes Dexamethasone 04/15/2014 1 mg Medical (General) History Medical History History ICD Code Coronary Artery Disease heart stent, ID 12/13 20 pack year smoking history, quit in 23 09 psoriasis COPD Atelectasis anemia right inguinal hernia thrombocytopenia GERD HTN Hyperlipidemia SHERLEY Surgical History Surgery Date(Month/Year) sinus surgery 2006 Stress Test Mar 2015 heart cath-Dr Tirado - Stent x 2 heart cath 10/2017 heart cath 01/2018 CABG x 3 -Dr Palacios- 04/2020 Hospitalization History Reason Date(Month/Year) [facility] - Chest pain Mar 2015 ID and stent 12/2009
--- NOTE | 2025-02-14 08:00 | CA_ITS ---
APPROVED REPORT EXAM: Comprehensive 2D, Doppler, and color-flow Echocardiogram Piano And Organ Refinisher: Lulu Joyner RT(R) Ht: 5 ft 10 in Wt: 214lbs BSA: 2.15 BP: 125/71 mmHg Indications: chest pain, CAD, shortness of breath, ex smoker, hx CABG 2D Dimensions LA Volume 29.10 mL LA Volume Index 13.53 mL/m2 (M/F) 16-34 EF AP4 71.50 % GL Strain -20.6 % M-Mode Dimensions RVDd 3.46 cm (0.9-2.6) LA Diam 4.15 cm (1.9-4.0) LVDd 5.47 cm (3.5-5.7) LVDs 3.88 cm (3.5-5.7) IVSd 0.84 cm (0.6-1.1) PWd 1.10 cm (0.6-1.1) EF (Teich) 55.30% FS 29.10% EDV (Teich) 145.60 mL ESV (Teich) 65.10 mL LV Diastology E Decel Time 177 (160-240 msec) E/A Ratio 0.7 Mitral Valve MV E Max Markell. 68.0 (40-130 cm/s) MV A Velocity 101.0 (40-130 cm/s) E/A Ratio 0.67 MV PHT 52.0 ms Left Ventricle The left ventricle is normal size. Left ventricular systolic function is normal. The left ventricular ejection fraction is within the normal range. There is increased left ventricular wall thickness. There is normal LV segmental wall motion. Transmitral Doppler flow pattern suggests impaired LV relaxation. LVEF is 55% Right Ventricle The right ventricle is mildly dilated. The right ventricular systolic function is normal. Atria The left atrium is mildly dilated. The right atrium is mildly dilated. There is no color Doppler evidence of interatrial shunt. Aortic Valve The aortic valve opens well. There is no hemodynamically significant aortic valvular stenosis. No aortic regurgitation is present. Mitral Valve The mitral valve is normal in structure. No evidence of mitral valve stenosis. Trace mitral regurgitation is present. Tricuspid Valve The tricuspid valve leaflets are thin and pliable. Trace tricuspid regurgitation. There is insufficient TR jet to estimate RVSP. Pulmonic Valve The pulmonary valve is grossly normal in structure. Trace pulmonic valve regurgitation is present. Great Vessels The aortic root is normal in size. IVC is normal in size and collapses >50% with inspiration. Pericardium There is no pericardial effusion. Other Information Study Quality: Fair Conclusion Normal biventricular systolic function. Mild RV dilation. Mild biatrial dilation. No significant valvular stenosis or regurgitation. Electronically signed by : Jocelynn Shanks MD 02/18/2025 19:05:54
== END 2025-02-14 23:59 | disposition home or self-care (01) ==
LOC: RT 07:51
PROVIDERS: PCP Family Medicine; Visit Provider Internal Medicine
DX: I51.7 Cardiomegaly (principal); I25.119 Atherosclerotic heart disease of native coronary artery with unspecified angina pectoris; Z87.891 Personal history of nicotine dependence; Z95.1 Presence of aortocoronary bypass graft
CPT/HCPCS: 93306

== ENCOUNTER 2025-02-22 07:56 | Day surgery (SDC) | payer BC, MEDICARE, SELFPAY ==
[2025-02-22] VITALS (17 sets, daily range): BP systolic 101–157; BP diastolic 56–86; PULSE 48–60; RESP 10–20; TEMP 36.4–37; O2SAT 94–97; BMI 30.7
--- NOTE | 2025-02-22 07:02 | IR_ITS ---
APPROVED REPORT Patient Location: Outpatient Animal Anatomy Teacher: NORMA Holbrook RT (R) PROCEDURES Left heart catheterization Left ventriculogram Selective coronary angiogram Left internal mammary angiography Right internal mammary angiography Drug-eluting stent deployment to the ostial proximal left main artery Drug-eluting stent deployment to the circumflex artery's first obtuse marginal artery INDICATION Coronary artery disease, Accelerated angina pectoris, History of coronary bypass surgery Informed consent was obtained prior to the procedure. COMPLICATIONS NONE Estimated Blood Loss: LESS THAN 10 ML TECHNIQUE One percent lidocaine used to anesthetize the right groin. The right femoral artery was accessed via the Seldinger technique and a 5 [place] sheath was placed in the right femoral artery. A JL 4, JR4 catheter were used to perform left heart catheterization, left ventriculogram selective coronary angiography as well as left internal mammary angiography and right internal mammary angiography. At the end the diagnostic angiogram therapeutic heparin was administered giving a therapeutic ACT and the 5 [place]ian sheath was exchanged for a 6 [place] sheath. A JL 4 guide catheter was placed in left main artery followed by Choice PT extra-support wire placed into the first obtuse marginal artery. A 3.5 x 22 mm Zbigniew frontier stent was deployed at 22 barbra in the left main artery extending to the proximal circumflex artery only after it was predilated with a 3 mm x 15 mm noncompliant balloon at 20 barbra. Primary stenting could not be performed with a 3.5 mm stent. Following this a 2.75 x 38 mm [place] frontier stent was placed in the proximal and mid circumflex artery extending to the first obtuse marginal artery in a noncontiguous manner with the left main artery stent. This was deployed at 22 barbra. The balloon was pulled back and deployed at 24 barbra to further post dilate. Excellent angiograph results were obtained achieving YAZMIN-3 flow before and after the procedure. At the end the procedure the apparatus was removed the groin was reprepped closure change sheath was removed good hemostasis was achieved using Perclose device patient was transferred to the postop holding area in stable condition ANGIOGRAPHIC RESULTS The left main artery Has an ostial 40 to 50% stenosis and a distal 50% stenosis The left anterior descending artery Has a stent in the ostial proximal segment which is widely patent free of in-stent restenosis with excellent proximal distal transitioning. Competitive flow is identified from the ZAK graft teeing off the BOONE graft supplying the first diagonal artery and the BOONE graft supplying the distal LAD The circumflex artery Is codominant has a stent in the proximal segment which has an ostial 60% stenosis followed by a mid vessel 70% stenosis followed by an additional 70% stenosis in the first obtuse marginal artery The right coronary artery Is dominant and has diffuse 30% stenosis The BRANDT ventriculogram reveals Reduced at 45 to 50% The left ventricular end-diastolic pressure 20 mmHg BOONE to LAD is small but patent and anastomosis in the mid LAD with competitive flow from the [place] LAD. ZAK graft Ts off the distal BOONE graft and supplies a small diagonal artery with competitive flow from the [place] LAD IMPRESSION Coronary disease as described above Successful stenting of the ostial left main artery extending the proximal circumflex artery Successful stenting of the first obtuse marginal artery Reduced ejection fraction Elevated LVEDP PLAN 1. Dual antiplatelet therapy 2. Cardiac rehabilitation 3. Avoidance of tobacco products 4. Risk factor modification 5. LDL less than 55 to be achieved with high intensity statin Electronically signed by : Oscar Tirado MD 02/22/2025 12:50:03
[2025-02-22 08:25] LABS: Hematocrit 44.5 % (42.0-52.0); Hemoglobin 15.0 g/dL (14.1-18.0); Immature Granulocytes % 0.2 %; Mean Corpuscular HGB Conc 33.7 g/dL (31.8-35.4); Mean Corpuscular Hemoglobin 30.4 pg (27.0-31.2); Mean Corpuscular Volume 90.1 fl (80-94); Nucleated Red Blood Cells % 0 %; Platelet Count 174 K/mm3 (142-424); Red Blood Count 4.94 M/mm3 (4.60-6.20); Red Cell Distribution Width-SD 45.1 fL; White Blood Count 4.8 K/mm3 (4.8-10.8)
[2025-02-22 08:48] LABS: Chloride 103 mmol/L (98-107); Potassium 4.0 mmoL/L (3.5-5.1); Sodium 140 mmol/L (136-145)
[2025-02-22 08:51] LABS: Anion Gap 14.0 mEq/L (5-15); Blood Urea Nitrogen 9 mg/dl (9-20); Calcium 9.0 mg/dl (8.4-10.2); Carbon Dioxide 27 mmol/L (22.0-30.0); Creatinine Clearance Estimated 97 mL/min (50-200); Creatinine,Serum 0.90 mg/dl (0.66-1.25); Estimated Glomerular Filt Rate 84 ml/min (>60); GFR (African American) 102 ML/MIN (>60); Glucose 131 mg/dl (74-100)
[2025-02-22] MEDS: LIDOCAINE 1% 10ML MDV 10 ML IJ (09:12)
[2025-02-22] MEDS: HEPARIN 1,000 UNITS/500ML NS (CATH LAB) 3000 UNIT IV (09:12)
[2025-02-22] MEDS: 0.9 % SODIUM CHLORIDE 500 ML 25 ML IV (09:13)
[2025-02-22] MEDS: FENTANYL 100MCG/2ML VIAL 50 MCG IV (09:50)
[2025-02-22] MEDS: MIDAZOLAM HCL 1MG/ML 5ML VIAL 1 MG IV (09:51)
[2025-02-22] MEDS: HEPARIN 1,000 UNITS/ML 10ML VIAL (CATH LAB) 5000 UNIT IV (09:51)
[2025-02-22] MEDS: IOPAMIDOL-370 (76%);100ML BOTTLE 80 ML IV (10:18)
--- NOTE | 2025-02-22 10:19 | SUR.PHASEII ---
No YESSI/ARB per MD
--- NOTE | 2025-02-22 10:22 | SUR.PHASEII ---
report given to Bere CASANOVA, patient moved to ICU for recovery
--- NOTE | 2025-02-22 10:32 | PC.NURSE ---
Patient arrived to ICU at this time. Continuation of care plan.
== END 2025-02-22 14:18 | disposition home or self-care (01) ==
PROVIDERS: PCP Family Medicine; Visit Provider Internal Medicine
PROC: 4A023N7 Measurement of Cardiac Sampling and Pressure, Left Heart, Percutaneous Approach (ICD-10-PCS; CPT 93452; principal; 2025-02-22 07:30)
DX: I25.118 Atherosclerotic heart disease of native coronary artery with other forms of angina pectoris (principal); I11.9 Hypertensive heart disease without heart failure; R94.31 Abnormal electrocardiogram [ECG] [EKG]; R06.00 Dyspnea, unspecified; R00.1 Bradycardia, unspecified; G47.33 Obstructive sleep apnea (adult) (pediatric); K21.9 Gastro-esophageal reflux disease without esophagitis; E78.2 Mixed hyperlipidemia; Z79.82 Long term (current) use of aspirin; Z79.02 Long term (current) use of antithrombotics/antiplatelets; Z79.899 Other long term (current) drug therapy; Z95.1 Presence of aortocoronary bypass graft; Z95.5 Presence of coronary angioplasty implant and graft; Z88.8 Allergy status to other drugs, medicaments and biological substances
CPT/HCPCS: 80048; 85025; 85347; 92928; 93459; 99152; 99153; C1725; C1760; C1769; C1874; C1894; C9600; J1200; J1644; J2003; J3010; J7040; Q9967

== ENCOUNTER 2025-03-06 09:09 | Outpatient (CLI) | payer BC, MEDICARE, SELFPAY ==
--- OUTSIDE RECORDS SUMMARY | 2024-12-31 05:30 | XMS_ITS ---
Author Organization [facility] Address [address] [facility] [address] [facility] [address] [place] [id number] Care Team Providers Care Lead Customer Service Representative Name Role Phone Zev Mae Primary Care Provider Maribel Tinajero Unavailable [phone] Allergies No Known Allergies REASON FOR VISIT 2 months check and Annual Wellness Visit Immunizations Vaccine Route Administration Date Status Comme nts Prevnar (PCV20) Unknown 12/31/2024 Pending Encounters Encounter Location Date Provider Diagnosis [facility] [address] [facility] [address] [place] [id number] 12/31/2024 Maribel Tinajero Adult general medica l examination Z00.00 Assessments Encounter Date Diagnosis (ICD Code) Assessment Notes Treatment Notes Treatment Clinical Notes Section Notes 12/31/2024 Adult general medical examination (ICD-10 - Z00.00) Patient instructed to return to office Annually for Annual Wellness Visits to include annual screenings of Pain assessment, Functional Ability assessment, Cognitive Ability assessment, Fall Risk assessment, Depression screening and Bladder control screening. Plan Of Treatment Treatment Notes Assessment Notes Adult general medical examination Patien t instructed to return to office Annually for Annual Wellness Visits to include annual screenings of Pain assessment, Functional Ability assessment, Cognitive Ability assessment, Fall Risk assessment, Depression screening and Bladder control screening. Pending Test Test Name Order Date CBC Venipuncture (in house) 12/31/2024 P-Comprehensive Metabolic Panel (CMP) P-Lipid Panel 12/31/2024 P-PSA 12/31/2024 P-Microalbumin/Creatinine, Random Urine Sample 12/31/2024 Next Appt Details Follow Up: As directed by , Reason: Progress Notes * IAN PÉREZDOB:1955 ([age] yo M)Acc No.[id number]:12/31/2024 Annual Wellness Visit Patient: IAN DYSON Provider: KEON Vargas :1955 A ge:69 Y S ex:Male Date:12/31/2024 Address:[facility] [address], [place], [id number] Pcp:Zev Mae Subjective: * Chief Complaints: * 1 . 2 months check and Annual Wellness Visit. * HPI: H PI: Patient is here today for a scheduled 2 month check up and?a Medicare Annual Wellness Visit. * ROS: D ERMATOLOGY: no R kosta. n o H lori. G ASTROENTEROLOGY: no N ausea. n o V omiting. n o D iarrhea.? O PTHALMOLOGY: Negative for d enies issues with vision. U ROLOGY: no D ifficulty urinating. n o B lood in urine. * Medical History: C oronary Artery Disease, heart stent, [place] 12/13, 20 pack year smoking history, quit in 2003, Psoriasis, COPD, Atelectasis, Anemia, Right inguinal hernia, Thrombocytopenia, GERD, HTN, Hyperlipidemia, SHERLEY. * Surgical History: s inus surgery 2006, Stress Test Mar 2015, heart cath-Dr Tirado - Stent x 2 07/2017, heart cath 10/2017, heart cath 01/2018, CABG x 3 -Dr Palacios- 04/2020. * Hospitalization/Major Diagno stic Procedure: M I and stent 12/2009, [facility] - Chest pain Mar 2015. * Family History: F ather: 77 yrs, heart disease. M other: 84 yrs, stroke. S iblings: 1 brother, 1 sister. * Social History: C URRENT TOBACCO USE S moking Status: Patient does NOT smoke. P ast smoking status: no. * Allergies: N .K.D.A. Objective: * Vitals: * Physical Examination: G ENERAL: Pain Assessment: P ain level: , on a scale of 0 to 10 (10 being extreme pain). F unctional Status Assessment: P atient response to how often physical health interferes with daiy activities: Able to perform ADLs-including meal preparation, grocery shopping, housework, laundry, taking medications, or handling finances. Cognitive Status: Alert and oriented. Ambulation Status: Fully ambulatory. F all Risk Assessment: I ndependant in ambulation, adequate lighting in home. Patient has NOT fallen or had trouble walking within the past 12 months. D epression Screening: D enies depressed mood or anxiety. Describes emotional health as:. B ladder Control Screening: D enies problems.? Assessment: * Assessment: 1. A dult general medical examination - Z00.00 (Primary) Plan: * Treatment: * Immunizations: Prevnar (PCV20) : 0.5 mL (Pending) * Labs: * L ab: P-Microalbumin/Creatinine, Random Urine Sample L ab: P-PSA L ab: P-Lipid Panel L ab: P-Comprehensive Metabolic Panel (CMP) L ab: CBC Venipuncture (in house) * Procedure Codes: G 0438 ANNUAL WELLNES VST; PERSNL PPS INIT, Modifiers: 25 , G2211 Complex e/m visit add on, 1090F PRES/ABSN URINE INCON ASSESS, 3288F FALL RISK ASSESSMENT DOCD, 1170F FXNL STATUS ASSESSED, 1126F AMNT PAIN NOTED NONE PRSNT, 1159F MED LIST DOCD IN RCRD, 1003F LEVEL OF ACTIVITY ASSESS, 16078 CBC WITH AUTO DIFF, 1036F TOBACCO NON-USER, 3017F COLORECTAL CA SCREEN DOC REV * Preventive Medicine: Counseling: E motional health: E ncouraged to try connecting with family or friends to boost mood. B ladder control: D iscussed ways to control/manage leakage of urine. Exercise: A dvised to start, increase or maintain level of exercise/physical activity. I njury prevention: D iscussed fall prevention. Discussed need for cane/walker. Potential trip hazards discussed. Immunizations: T etanus u p to date. P neumococcal r ecommended. I nfluenza r ecommended seasonally. Screening / Special Tests: C olonoscopy R ecent history:02/04/2022 Dr. Araujo, see benign pathology. P SA -normal, ordered. * Follow Up: A s directed by * Images: Billing Information: * Visit Code: * Procedure Codes: G0438 ANNUAL WELLNES VST; PERSNL PPS INIT. Modifiers: 25 G2211 Complex e/m visit add on. 1090F PRES/ABSN URINE INCON ASSESS. 3288F FALL RISK ASSESSMENT DOCD. 1170F FXNL STATUS ASSESSED. 1126F AMNT PAIN NOTED NONE PRSNT. 1159F MED LIST DOCD IN RCRD. 1003F LEVEL OF ACTIVITY ASSESS. 56537 CBC WITH AUTO DIFF. 1036F TOBACCO NON-USER. 3017F COLORECTAL CA SCREEN DOC REV. * Electronic signature of Dasha Tinajero APRN on 03/06/2025 at 09:22 AM EDT Sign off status: Pending * Provider: KEON Vargas Date: 0 12/31/2024 Generated for Allegra owen/Cristine/Sarahitting on: 1 09:22 AM EDT History and Physical Notes * HPI (History of Present Illness) Category Sub-Category Detail Notes Category Not es HPI Patient is here today for a sche duled 2 month check up and a Medicare Annual Wellness Visit Physical Examination Category Sub-Category Detail Notes Section Note s GENERAL Pain Assessment: Pain level: , o n a scale of 0 to 10 (10 being extreme pain) Functional Status Assessment: Patient response to how often physical health interferes with daiy activities: Able to perform ADLs-including meal preparation, grocery shopping, housework, laundry, taking medications, or handling finances. Cognitive Status: Alert and oriented. Ambulation Status: Fully ambulatory Fall Risk Assessment: Independant in amb ulation, adequate lighting in home. Patient has NOT fallen or had trouble walking within the past 12 months Depression Screening: Denies depressed m ood or anxiety. Describes emotional health as: Bladder Control Screening: Denies proble ms
--- OUTSIDE RECORDS SUMMARY | 2025-03-06 09:22 | XMS_ITS | Clinical Summary ---
[facility] Organization [facility] Address [address] [place] [id number] Care Team Providers Care Coupling Machine Operator Name Role Phone Michael Ayers MD Primary Care Provider [phone] Social History Tobacco Use Types Packs/Day Years [...] 2006 ZOSTER VACCINE (1 of 2) 2006 INFLUENZA VACCINE 01/04/2025 COVID-19 Vaccine ( - 2023- season) 2025 AAA SCREEN ONCE Completed 04/18/2020, 04/18/2020 Insurance [employer] Care Teams Coupling Machine Operator Relationship Specialty Start Date End Date Michael Ayers MD [address] [facility] [address] [place] [address] PCP - General 03/06/15
--- OUTSIDE RECORDS SUMMARY | 2025-03-06 09:22 | XMS_ITS | Clinical Summary ---
Author Organization [facility] Address [address] [place] [id number] Care Team Providers Care Street Contractor Name Role Phone Kvng Mae MD Primary Care Provider [phone] Family History Medical History Relation Name Comments [...] of Treatment Not on file Care Teams Street Contractor Relationship Specialty Start Date End Date Kvng Mae MD [address] [place] [address] PCP - General 10/17/20
[2025-03-06 09:34] LABS: Hematocrit 42.6 % (42.0-52.0); Hemoglobin 14.5 g/dL (14.1-18.0); Immature Granulocytes % 0.2 %; Mean Corpuscular HGB Conc 34.0 g/dL (31.8-35.4); Mean Corpuscular Hemoglobin 30.7 pg (27.0-31.2); Mean Corpuscular Volume 90.3 fl (80-94); Nucleated Red Blood Cells % 0 %; Platelet Count 184 K/mm3 (142-424); Red Blood Count 4.72 M/mm3 (4.60-6.20); Red Cell Distribution Width-SD 45.6 fL; White Blood Count 4.5 K/mm3 (4.8-10.8)
[2025-03-06 10:25] LABS: Cholesterol 117 mg/dl (140-200); HDL Cholesterol 34 mg/dl (40-60); Triglycerides 155 mg/dl (30-150)
[2025-03-06 10:28] LABS: Anion Gap 13.1 mEq/L (5-15); Blood Urea Nitrogen 14 mg/dl (9-20); Calcium 9.2 mg/dl (8.4-10.2); Carbon Dioxide 26 mmol/L (22.0-30.0); Chloride 106 mmol/L (98-107); Creatinine,Serum 0.90 mg/dl (0.66-1.25); Estimated Glomerular Filt Rate 84 ml/min (>60); GFR (African American) 102 ML/MIN (>60); Glucose 105 mg/dl (74-100); Potassium 4.1 mmoL/L (3.5-5.1); Sodium 141 mmol/L (136-145)
== END 2025-03-06 23:59 | disposition home or self-care (01) ==
LOC: LAB 09:12
PROVIDERS: Internal Medicine; PCP Family Medicine; Visit Provider Internal Medicine
DX: I25.10 Atherosclerotic heart disease of native coronary artery without angina pectoris (principal); E78.5 Hyperlipidemia, unspecified; I11.9 Hypertensive heart disease without heart failure
CPT/HCPCS: 36415; 80048; 80061; 85025

== ENCOUNTER 2025-03-06 13:09 | Outpatient (RCR) | payer MEDICARE, BC, SELFPAY | END 2025-04-04 08:00 | disposition home or self-care (01) | LOC: CR 13:09 | PROVIDERS: Visit Provider Internal Medicine | DX: I25.118 Atherosclerotic heart disease of native coronary artery with other forms of angina pectoris (principal); I11.9 Hypertensive heart disease without heart failure | CPT/HCPCS: 93798 ==